=== PATIENT | female | born 1945 | race Caucasian/White ===

== ENCOUNTER 2021-02-23 10:16 | Inpatient (IN) ==
[2021-02-23] MEDS ORDERED: PANTOprazole 80 MG in DEXTROSE 5% 100 ML IV ONE (10:50)
--- NOTE | 2021-02-23 10:57 | Emergency Department Note ---
History of Present Illness General Chief complaint: GI Bleed Stated complaint: Dark Stool Time Seen by Provider: 02/23/21 10:34 History of Present Illness Maximum Pain Intensity: 0 This is a 76-year-old female brought over from [facility] for evaluation of dark and maroon-colored stools. The patient is in [facility] because she had a CHF exacerbation and then subsequently developed difficulty walking. She also has a wound to her right knee. She was previously admitted to [facility]. She has no complaints other than feeling somewhat tired. According to the nurse the patient had dark stools the other day and today they noticed maroon stools and sent her here for evaluation. She is on Eliquis daily for atrial fibrillation. She denies any hematuria or nosebleeds. She states that she has chronic diarrhea from IBS. She denies any chest pain or shortness of breath. She has had no fevers. She did vomit once 2 weeks ago but has not vomited since. She denies any abdominal pain. She denies headache or cough or cold symptoms. She was told in her prior hospitalization that she was anemic. She was recommended to have a colonoscopy but states that she has not had time to arrange it. Home Medications Medication Instructions Recorded Confirmed Type apixaban 5 mg PO BID 02/23/21 02/23/21 History digoxin 250 mcg PO PM 02/23/21 02/23/21 History docusate sodium 100 mg PO TID 02/23/21 02/23/21 History escitalopram oxalate 10 mg PO QAM 02/23/21 02/23/21 History fludrocortisone 0.1 mg PO QAM 02/23/21 02/23/21 History furosemide 40 mg PO BIDM 02/23/21 02/23/21 History iron,carbonyl-vitamin C [Vitron-C] 1 tab PO TIDM 02/23/21 02/23/21 History magnesium oxide 400 mg PO BIDM 02/23/21 02/23/21 History melatonin 3 mg PO HS PRN 02/23/21 02/23/21 History pantoprazole 40 mg PO DAILYBB 02/23/21 02/23/21 History potassium chloride 40 meq PO BIDM 02/23/21 02/23/21 History potassium phosphate m-/d-basic 1 packet PO TIDM 02/23/21 02/23/21 History pravastatin 10 mg PO QAM 02/23/21 02/23/21 History silver sulfadiazine 1 applic TOPICAL BID 02/23/21 02/23/21 History tramadol 50 mg PO Q4H PRN 02/23/21 02/23/21 History Allergies Allergy/AdvReac Type Severity Reaction Status Date / Time Anesthetics - Amide Type - AdvReac Severe Stops Unverified 02/23/21 12:11 Select A Breathings Anesthetics - Constanza Type- AdvReac Severe Stops Unverified 02/23/21 12:11 Parabens Breathing meperidine [From Demerol] AdvReac Mild Vomiting Unverified 02/23/21 12:11 Past Med/Surg History Medical History (Updated 02/23/21 @ 18:08 by Luis F Linder MD) Afib Anemia CHF (congestive heart failure) Dementia Dizziness HLD (hyperlipidemia) HTN (hypertension) Hypokalemia Obesity MOHAMUD (obstructive sleep apnea) Tonsillectomy planned Unspecified reduction defect of unspecified upper limb Surgical History Gastric bypass status for obesity H/O: hysterectomy Family History (Updated 02/23/21 @ 14:35 by NEIDA Loyola) Other Coronary heart disease Cystic kidney disease Diabetes Dyslipidemia Osteoarthritis Social History Smoking Status: Never smoker Hx Alcohol Use: No Hx Substance Use: No Preferred Language: Serbian Communication Ability: Effective Beliefs That Will Affect Care: None Current Living Situation: Family Current Living Situation Comment: sister in law lives with her Other Information That Helps Us Care for You: No Feels Safe at Home: Yes Assistive Devices: Glasses, Special Shoe and Wheelchair Physical Exam Vital Signs Vital Signs - 24 hr 02/23/21 10:21 02/23/21 10:27 02/23/21 11:19 Temperature 36.8 C Temperature Source Oral Pulse Rate 84 84 93 H Pulse Rate from SpO2 Sensor 84 81 Pulse Rhythm Regular Pulse Strength Normal Respiratory Rate 25 H 18 25 H Respiratory Effort / Characteristics Non-Labored Spontaneous Nasal Congestion Respiratory Depth Normal Blood Pressure 114/68 114/68 Blood Pressure Mean 83 83 Blood Pressure Position Lying Pulse Oximetry 93 98 90 Oxygen Delivery Method Room Air Sepsis Recent Fever Within 48 Hours No Sepsis New/Unexplained Change in Mental Status N/A Sepsis Action Taken by Nursing No Action Required 02/23/21 11:20 02/23/21 11:30 02/23/21 11:40 Temperature Temperature Source Pulse Rate 81 85 77 Pulse Rate from SpO2 Sensor 84 79 81 Pulse Rhythm Pulse Strength Respiratory Rate 24 17 Respiratory Effort / Characteristics Respiratory Depth Blood Pressure Blood Pressure Mean Blood Pressure Position Pulse Oximetry 92 92 92 Oxygen Delivery Method Sepsis Recent Fever Within 48 Hours Sepsis New/Unexplained Change in Mental Status Sepsis Action Taken by Nursing 02/23/21 11:50 02/23/21 12:00 02/23/21 12:10 Temperature Temperature Source Pulse Rate 81 84 78 Pulse Rate from SpO2 Sensor 81 87 78 Pulse Rhythm Pulse Strength Respiratory Rate 17 19 22 Respiratory Effort / Characteristics Respiratory Depth Blood Pressure Blood Pressure Mean Blood Pressure Position Pulse Oximetry 94 94 94 Oxygen Delivery Method Sepsis Recent Fever Within 48 Hours Sepsis New/Unexplained Change in Mental Status Sepsis Action Taken by Nursing 02/23/21 12:20 02/23/21 12:26 02/23/21 12:30 Temperature Temperature Source Pulse Rate 91 H 89 86 Pulse Rate from SpO2 Sensor 86 84 Pulse Rhythm Pulse Strength Respiratory Rate 27 H 24 23 Respiratory Effort / Characteristics Respiratory Depth Blood Pressure 127/76 Blood Pressure Mean 93 Blood Pressure Position Pulse Oximetry 93 90 Oxygen Delivery Method Sepsis Recent Fever Within 48 Hours Sepsis New/Unexplained Change in Mental Status Sepsis Action Taken by Nursing 02/23/21 12:40 02/23/21 12:50 02/23/21 13:00 Temperature Temperature Source Pulse Rate 90 79 83 Pulse Rate from SpO2 Sensor Pulse Rhythm Pulse Strength Respiratory Rate 21 23 22 Respiratory Effort / Characteristics Respiratory Depth Blood Pressure Blood Pressure Mean Blood Pressure Position Pulse Oximetry Oxygen Delivery Method Sepsis Recent Fever Within 48 Hours Sepsis New/Unexplained Change in Mental Status Sepsis Action Taken by Nursing 02/23/21 13:10 02/23/21 13:20 02/23/21 13:30 Temperature Temperature Source Pulse Rate 88 86 81 Pulse Rate from SpO2 Sensor Pulse Rhythm Pulse Strength Respiratory Rate 23 18 23 Respiratory Effort / Characteristics Respiratory Depth Blood Pressure Blood Pressure Mean Blood Pressure Position Pulse Oximetry Oxygen Delivery Method Sepsis Recent Fever Within 48 Hours Sepsis New/Unexplained Change in Mental Status Sepsis Action Taken by Nursing 02/23/21 13:40 02/23/21 13:50 02/23/21 14:00 Temperature Temperature Source Pulse Rate 80 81 85 Pulse Rate from SpO2 Sensor Pulse Rhythm Pulse Strength Respiratory Rate 25 H 18 23 Respiratory Effort / Characteristics Respiratory Depth Blood Pressure Blood Pressure Mean Blood Pressure Position Pulse Oximetry Oxygen Delivery Method Sepsis Recent Fever Within 48 Hours Sepsis New/Unexplained Change in Mental Status Sepsis Action Taken by Nursing 02/23/21 14:10 02/23/21 14:20 02/23/21 14:30 Temperature Temperature Source Pulse Rate 76 76 84 Pulse Rate from SpO2 Sensor 76 90 Pulse Rhythm Pulse Strength Respiratory Rate 23 24 16 Respiratory Effort / Characteristics Respiratory Depth Blood Pressure Blood Pressure Mean Blood Pressure Position Pulse Oximetry 90 91 Oxygen Delivery Method Sepsis Recent Fever Within 48 Hours Sepsis New/Unexplained Change in Mental Status Sepsis Action Taken by Nursing 02/23/21 14:40 02/23/21 14:50 Temperature Temperature Source Pulse Rate 74 78 Pulse Rate from SpO2 Sensor 77 79 Pulse Rhythm Pulse Strength Respiratory Rate 22 20 Respiratory Effort / Characteristics Respiratory Depth Blood Pressure Blood Pressure Mean Blood Pressure Position Pulse Oximetry 95 93 Oxygen Delivery Method Sepsis Recent Fever Within 48 Hours Sepsis New/Unexplained Change in Mental Status Sepsis Action Taken by Nursing Constitutional: Vital signs reviewed. Eyes: Pupils are equal round reactive to light. Conjunctiva are noninjected. ENT: Pharynx is clear without erythema or exudate. Mucous membranes are dry. Neck supple without meningeal signs. Respiratory: Clear to auscultation bilaterally. Breath sounds are equal bilaterally. Cardiovascular: Irregularly irregular rhythm. Regular rate. GI: Soft, nondistended and nontender. Bowel sounds are present. Musculoskeletal: 2 wounds to the right ralph without evidence of surrounding cellulitis. No purulent drainage. Integumentary: No cyanosis. or jaundice. Neurological: The patient is awake and alert. No focal deficits. Psychiatric: Normal affect. Not anxious appearing. Course Administered Medications Docusate Sodium (Docusate Sodium 100 Mg Cap) 100 mg PO TID [facility] Stop: 03/25/21 15:57 Last Admin: 02/23/21 17:36 Dose: 100 mg Documented by: [id number] Furosemide (Furosemide 40 Mg Tab) 40 mg PO BIDM [facility] Stop: 03/25/21 16:59 Last Admin: 02/23/21 17:35 Dose: 40 mg Documented by: [id number] Potassium Chloride (Potassium Chloride Crtab 20 Meq Tabcr) 40 meq PO BIDM [facility] Stop: 03/25/21 16:59 Last Admin: 02/23/21 17:35 Dose: 40 meq Documented by: [id number] Potassium Phosphate (Pot Phosphate Monobasic W/ Sod Tab) 1 tab PO TIDM [facility] Stop: 03/25/21 16:59 Last Admin: 02/23/21 17:48 Dose: 1 tab Documented by: [id number] Discontinued Medications Pantoprazole Sodium 80 mg/ (Dextrose) 100 mls @ 400 mls/hr IV NOW ONE Stop: 02/23/21 11:04 Last Infusion: 02/23/21 11:50 Dose: 400 mls/hr Documented by: [id number] Admin: 02/23/21 11:27 Dose: 400 mls/hr Documented by: [id number] Pantoprazole Sodium 40 mg/ (Syringe) 10 mls @ 5 mls/min IV NOW ONE Stop: 02/23/21 13:40 Last Admin: 02/23/21 14:13 Dose: 5 mls/min Documented by: [id number] Medical Decision Making Differential Diagnosis GI bleed, peptic ulcer disease, diverticulosis, AVM, anemia Medical Records Attestation: I reviewed the patient's medical records. I did perform a limited focused review of portions of the patient's old chart on the electronic medical record. The patient has had no recent pertinent visits to this hospital. Home Medications Current Medication List: was personally reviewed by me Laboratory Data Attestation: I reviewed the patient's lab results. Result diagrams: 02/23/21 11:15 02/23/21 11:15 Lab Results 02/23/21 02/23/21 02/23/21 Range/Units 11:15 11:15 11:15 WBC 7.77 (4.8-10.8) K/uL RBC 3.78 L (4.2-5.4) M/uL Hgb 10.9 L (12.0-16.0) g/dL Hct 36.8 L (37-47) % MCV 97.4 (80-100) fL MCH 28.8 (25-34) pg MCHC 29.6 L (32-36) g/dL RDW Std Deviation 67.8 H (36.4-46.3) fL RDW Coeff of Bea 19.1 H (11.5-14.5) % Plt Count 366 (130-400) K/uL MPV 9.3 (7.4-10.4) fL Immature Gran % (Auto) 1.3 % Neut % (Auto) 66.9 % Lymph % (Auto) 10.0 % [place] % (Auto) 16.5 % Eos % (Auto) 5.0 % Baso % (Auto) 0.3 % Neut # (Auto) 5.20 (1.4-6.5) K/uL Lymph # (Auto) 0.78 L (1.2-3.4) K/uL [place] # (Auto) 1.28 H (0.11-0.59) K/uL Eos # (Auto) 0.39 (0-0.5) K/uL Baso # (Auto) 0.02 (0-0.2) K/uL Immature Gran # (Auto) 0.10 H (0.00-0.02) K/uL PT 12.6 H (9.0-12.0) Seconds INR 1.3 H (0.9-1.1) APTT 34.7 H (21.0-31.0) Seconds PTT Ratio 1.3 Sodium (136-145) mmol/L Potassium (3.5-5.1) mmol/L Chloride (98-107) mmol/L Carbon Dioxide (21-32) mmol/L Anion Gap (3-11) BUN (7-18) mg/dl Creatinine (0.6-1.2) mg/dl Est Cr Clr Drug Dosing ml/min Est GFR ( Amer) ml/min Est GFR (Non-Af Amer) ml/min BUN/Creatinine Ratio (10-20) Glucose (70-99) mg/dl Calcium (8.5-10.1) mg/dl Total Bilirubin (0.2-1) mg/dl AST (15-37) U/L ALT (12-78) U/L Alkaline Phosphatase (45-117) U/L Troponin I (0-0.045) ng/ml Total Protein (6.4-8.2) gm/dl Albumin (3.4-5.0) gm/dl Globulin (2.5-4.0) gm/dl Albumin/Globulin Ratio (0.9-2) COVID-19 Eval Order SARS-CoV-2 (PCR) (Negative) Blood Type O Positive Antibody Screen NEGATIVE 02/23/21 02/23/21 02/23/21 Range/Units 11:15 11:36 11:36 WBC (4.8-10.8) K/uL RBC (4.2-5.4) M/uL Hgb (12.0-16.0) g/dL Hct (37-47) % MCV (80-100) fL MCH (25-34) pg MCHC (32-36) g/dL RDW Std Deviation (36.4-46.3) fL RDW Coeff of Bea (11.5-14.5) % Plt Count (130-400) K/uL MPV (7.4-10.4) fL Immature Gran % (Auto) % Neut % (Auto) % Lymph % (Auto) % [place] % (Auto) % Eos % (Auto) % Baso % (Auto) % Neut # (Auto) (1.4-6.5) K/uL Lymph # (Auto) (1.2-3.4) K/uL [place] # (Auto) (0.11-0.59) K/uL Eos # (Auto) (0-0.5) K/uL Baso # (Auto) (0-0.2) K/uL Immature Gran # (Auto) (0.00-0.02) K/uL PT (9.0-12.0) Seconds INR (0.9-1.1) APTT (21.0-31.0) Seconds PTT Ratio Sodium 137 (136-145) mmol/L Potassium 4.1 (3.5-5.1) mmol/L Chloride 98 (98-107) mmol/L Carbon Dioxide 33 H (21-32) mmol/L Anion Gap 7.0 (3-11) BUN 23 H (7-18) mg/dl Creatinine 1.07 (0.6-1.2) mg/dl Est Cr Clr Drug Dosing 52.9 ml/min Est GFR ( Amer) 58.8 ml/min Est GFR (Non-Af Amer) 50.7 ml/min BUN/Creatinine Ratio 21.6 H (10-20) Glucose 73 (70-99) mg/dl Calcium 8.9 (8.5-10.1) mg/dl Total Bilirubin 1.3 H (0.2-1) mg/dl AST 20 (15-37) U/L ALT 13 (12-78) U/L Alkaline Phosphatase 96 (45-117) U/L Troponin I 0.023 (0-0.045) ng/ml Total Protein 6.2 L (6.4-8.2) gm/dl Albumin 3.3 L (3.4-5.0) gm/dl Globulin 2.9 (2.5-4.0) gm/dl Albumin/Globulin Ratio 1.2 (0.9-2) COVID-19 Eval Order Covid19 at [facility] SARS-CoV-2 (PCR) NEGATIVE (Negative) Blood Type Antibody Screen ECG Data Attestation: I personally reviewed and interpreted this ECG as follows: Indication: + other (GI bleed) Rate (beats per minute): 86 Rhythm: + atrial fibrillation ECG ST segments: + T-wave inversions ECG Findings: + Other (Motion artifact); no PVCs MDM Narrative I did evaluate the patient as noted above. The patient was sent here from [facility] for evaluation of GI bleeding. The patient is on Eliquis for chronic A. fib. She was noted to have dark schools yesterday and maroon-colored stools today. IV access was established. I did place an order for continuous cardiac monitoring. The monitor showed atrial fibrillation at a rate of 88 bpm. I did order and personally review the patient's 12-lead EKG as described above. She has A. fib with some T wave inversions. No old EKGs available for comparison. I did order a type and screen. I did order and review the patient's blood work as noted in the electronic medical record. Her white count is 7.7. Hemoglobin is 10.9. Platelet count is 366. Electrolytes are unre markable other than a CO2 of 33. INR slightly elevated 1.3 although the patient is not on Coumadin. Troponin is negative. The nurse obtained a stool sample from the patient which she reported as very dark and guaiac positive. I did start the patient on Protonix IV. I did recommend hospitalization. I did discuss the case with the hospitalist and counter caser. COVID-19 testing is negative. Impression & Plan Acute GI bleeding, CHF (congestive heart failure), Anemia Discharge Plan Visit Data Chief Complaint: GI Bleed Stated Complaint: Dark Stool ED Provider: Luis F Linder Discharge Problem: Acute GI bleeding, CHF (congestive heart failure), Anemia Patient Disposition: Admitted As Inpatient Discharge Instructions Interventions: ED Discharge Assessment Last Done: 02/23/21 15:31
[2021-02-23 11:50] LABS: Basophils # (auto) 0.02 K/uL (0-0.2); Basophils % (auto) 0.3 %; Eosinophils # (auto) 0.39 K/uL (0-0.5); Hematocrit (blood only) 36.8 % (37-47); Hemoglobin 10.9 g/dL (12.0-16.0); Immature Granulocytes % (auto) 1.3 %; Lymphocytes # (auto) 0.78 K/uL (1.2-3.4); Mean Corpuscular Hemoglobin 28.8 pg (25-34); Mean Corpuscular Hgb Conc 29.6 g/dL (32-36); Mean Corpuscular Volume 97.4 fL (80-100); Mean Platelet Volume 9.3 fL (7.4-10.4); Monocytes # (auto) 1.28 K/uL (0.11-0.59); Monocytes % (auto) 16.5 %; Neutrophils % (auto) 66.9 %; Platelet Count 366 K/uL (130-400); RDW Coefficient of Variation 19.1 % (11.5-14.5); RDW Standard Deviation 67.8 fL (36.4-46.3); Red Blood Count 3.78 M/uL (4.2-5.4); White Blood Count 7.77 K/uL (4.8-10.8)
[2021-02-23 12:04] LABS: INR 1.3 (0.9-1.1); Partial Thromboplastin Ratio 1.3; Partial Thromboplastin Time 34.7 Seconds (21.0-31.0); Prothrombin Time 12.6 Seconds (9.0-12.0)
[2021-02-23 12:14] LABS: Albumin Level 3.3 gm/dl (3.4-5.0); BUN Creatinine Ratio 21.6 (10-20); Calcium 8.9 mg/dl (8.5-10.1); Creatinine Clr Calc Pharmacy 52.9 ml/min; Est GFR (African American) 58.8 ml/min; Est GFR (Non-African American) 50.7 ml/min; Potassium 4.1 mmol/L (3.5-5.1)
[2021-02-23 12:19] LABS: Albumin Globulin Ratio 1.2 (0.9-2); Bilirubin,Total 1.3 mg/dl (0.2-1); Globulin 2.9 gm/dl (2.5-4.0); Total Protein 6.2 gm/dl (6.4-8.2); Troponin I 0.023 ng/ml (0-0.045)
[2021-02-23] MEDS ORDERED: PANTOprazole 40 MG in SYRINGE 0 ML IV ONE (13:39)
--- NOTE | 2021-02-23 14:16 | History & Physical Report ---
Date of Service February 23, 2021 Assessment & Plan (1) Gastrointestinal hemorrhage, unspecified: As per HPI- risk factors; gastric bypass, poor PO intake, on chronic anticoagulation- unspecified source - dark stools reported, with guaiac (+) stool in EMD - Protonix 40 mg IV BID - Consult GI- appreciated - NO elevation in BUN, hemodynamically stable, HGB/HCT stable - [place]- 6 (2) Anemia: Patient with multiple causes for her anemia - Reportedly following her transfusion at [facility] - she was discharged ~9-10---> 10.9 now - She believes was recently started on her Iron supplementation - MCV 97, MCH 28 - Iron studies, b12 and Folate- pending (3) Afib: Rate controlled - Continue digoxin - Follow her K with digoxin-- dig level pending - HOLD Eliquis until her clinical picture is more clear and/or GI Bleed is ruled in/out. - Follow K, Mg as above (4) CHF (congestive heart failure): HFpEF- Patient reports that her EF 50% - As long as remains hemodynamic stable with no acute blood loss cotninue diuretics - Lasix 40 PO BID - Digoxin 0.25mg PO BID (5) HTN (hypertension): As above - Follow with her ? blood loss (6) HLD (hyperlipidemia): Continue pravastatin 10 mg PO Qam (7) Hypokalemia: Chronic- she is on Kdur as well as Kphos packets - She feels this is also why she was just put on Fludrocortisone 01.mg - Cortisol pending - Urine lytes pending - No gap- HCO3 33 (8) Obesity: Chronic obesity - No acute needs (9) Gastric bypass status for obesity: As above - Follow labs- supplements and complexes may need added/adjusted (10) MOHAMUD (obstructive sleep apnea): She wears CPAP at night but is unaware of settings - we have no records available - Her daughter will bring in her machine - CPAP at night or while sleeping (11) Dementia: Baseline (12) Dizziness: This has been going on for 3 months per the daughter, where they adjusted her medications - Follow up when ensured Euvolemia- to mild hypovolemia - As above History of Present Illness Primary Care Provider: [facility] 76 YOF with past medical history of: Afib (on eliquis), hypotension, hypokalemia, obesity, HTN, HFpef, HLD, MOHAMUD (on CPAP) arthritis, falls, depression, dementia, Gastric bypass 2001. Patient is poor historian but daughter is at bedside to help fill in some of the information. Patient was told that she has been anemic since ~December and was scheduled to have an appointment with GI, however this appointment was never scheduled because she was admitted to [facility] at the end of November for CHF exacerbation. Her daughter reports that while she was at [facility], her HGB ~8 and she was given 2 units of blood and also believes that she was started on the iron- vitamin C there. The patient was discharged from [facility] on 21Sep2020 and sent back to [facility]. She was referred back to the EMD today for reports of large dark bloody BM there, the patient can not recall her BM as she is usually on a bedpan or incontinence pads, but she denies any increase in her BM or them changing consistency, she has also not had any vomiting. She was evaluated in the EMD and had a guaiac (+) stool per the EMD physician. Patient reports some increase in her nausea at times, but does not endorse stomach pain or increase in heart burn. She denies any Motrin, Aleve, Ibuprofen, or other NSAID use, and used Tylenol for her pain and took her Tramadol one day as it was just started for her Arthritis. Patient will be admitted to medical telemetry, will hold her Eliqius, start on IV PPI BID, follow her blood counts and consult GI. Allergies Allergy/AdvReac Type Severity Reaction Status Date / Time Anesthetics - Amide Type - AdvReac Severe Stops Unverified 02/23/21 12:11 Select A Breathings Anesthetics - Constanza Type- AdvReac Severe Stops Unverified 02/23/21 12:11 Parabens Breathing meperidine [From Demerol] AdvReac Mild Vomiting Unverified 02/23/21 12:11 Home Medications Medication Instructions Recorded Confirmed Type apixaban 5 mg PO BID 02/23/21 02/23/21 History digoxin 250 mcg PO PM 02/23/21 02/23/21 History docusate sodium 100 mg PO TID 02/23/21 02/23/21 History escitalopram oxalate 10 mg PO QAM 02/23/21 02/23/21 History fludrocortisone 0.1 mg PO QAM 02/23/21 02/23/21 History furosemide 40 mg PO BIDM 02/23/21 02/23/21 History iron,carbonyl-vitamin C [Vitron-C] 1 tab PO TIDM 02/23/21 02/23/21 History magnesium oxide 400 mg PO BIDM 02/23/21 02/23/21 History melatonin 3 mg PO HS PRN 02/23/21 02/23/21 History pantoprazole 40 mg PO DAILYBB 02/23/21 02/23/21 History potassium chloride 40 meq PO BIDM 02/23/21 02/23/21 History potassium phosphate m-/d-basic 1 packet PO TIDM 02/23/21 02/23/21 History pravastatin 10 mg PO QAM 02/23/21 02/23/21 History silver sulfadiazine 1 applic TOPICAL BID 02/23/21 02/23/21 History tramadol 50 mg PO Q4H PRN 02/23/21 02/23/21 History Past Med/Surg History Medical History (Updated 02/23/21 @ 15:18 by NEIDA Loyola) Afib Anemia CHF (congestive heart failure) Dementia Dizziness HLD (hyperlipidemia) HTN (hypertension) Hypokalemia Obesity MOHAMUD (obstructive sleep apnea) Tonsillectomy planned Unspecified reduction defect of unspecified upper limb Surgical History Gastric bypass status for obesity H/O: hysterectomy Family History (Updated 02/23/21 @ 14:35 by NEIDA Loyola) Other Coronary heart disease Cystic kidney disease Diabetes Dyslipidemia Osteoarthritis Social History Smoking Status: Never smoker Hx Alcohol Use: No Hx Substance Use: No Preferred Language: Faroese Communication Ability: Effective Beliefs That Will Affect Care: None Current Living Situation: Family Current Living Situation Comment: sister in law lives with her Other Information That Helps Us Care for You: No Feels Safe at Home: Yes Assistive Devices: Glasses, Special Shoe and Wheelchair Review of Systems Review of Systems: REVIEW OF SYSTEMS: Poor historian Constitutional: (+) fatigue, No fever, sweats or chills Eyes: No diplopia, no worsening or blurred vision ENT: normal hearing, no trouble swallowing Respiratory: (+) dyspnea on exertion No cough, sputum, dyspnea at rest or on exertion Cardiovascular: No chest pain, tightness or palpitations Abdomen: (+) nausea, No pain, vomiting, diarrhea or constipation Musculoskeletal: No joint pain, calf pain, swelling Neurologic: (+) dizziness, No weakness, numbness/tingling, or balance problems Psychiatric: (+) anxiety Skin: (+) ulceration left second toe and right inner thigh x2 Physical Exam Physical Exam: PHYSICAL EXAM: General: awake, alert, no apparent distress, poor memory Head: Normocephalic, atraumatic ENT: PERRL, EOMI, no pharyngeal exudate, mucous membranes dry Neuro: AAO x 3, speech clear and appropriate, strength intact bilaterally 5/5, sensation intact and equal all extremities and dermatomes, no pronator drift Chest: equal rise and fall of the chest, no accessory muscle use, no heaves or thrills, Clear to auscultation, on room air, Cardiac: irregular rate and rhythm, telemetry reviewed- afib controlled, skin warm dry, cap refill <3 seconds, peripheral pulses +2 no JVD, no murmur, (+) 2-3 edema bilateral lower extremities GI: NABS x 4 quadrants, soft, nontender to palpation, no rebound, guarding or tenderness : Spontaneously voiding, no pain, no CVA tenderness, Extremities: No, calfs nontender to palpation, from her previous fall she has ulceration to her left second toe, also has some excoriations covered to right lower inner thigh around knee, covered with duodenum, no erythema or pain. Psych: Normal mood and affect Results & Data Results & Data ([facility]) Vital Signs (Past 12 Hours) Vital Signs Temp Pulse Resp BP Pulse Ox 02/23/21 12:40 90 21 02/23/21 12:30 86 23 90 02/23/21 12:26 89 24 127/76 93 02/23/21 12:20 91 H 27 H 02/23/21 12:10 78 22 94 02/23/21 12:00 84 19 94 02/23/21 11:50 81 17 94 02/23/21 11:40 77 17 92 02/23/21 11:30 85 92 02/23/21 11:20 81 24 92 02/23/21 11:19 93 H 25 H 90 02/23/21 10:27 36.8 C 84 18 114/68 98 02/23/21 10:21 84 25 H 114/68 93 Laboratory Results Abnormal lab results 02/23/21 02/23/21 02/23/21 Range/Units 11:15 11:15 11:15 RBC 3.78 L (4.2-5.4) M/uL Hgb 10.9 L (12.0-16.0) g/dL Hct 36.8 L (37-47) % MCHC 29.6 L (32-36) g/dL RDW Std Deviation 67.8 H (36.4-46.3) fL RDW Coeff of Bea 19.1 H (11.5-14.5) % Lymph # (Auto) 0.78 L (1.2-3.4) K/uL Bowie # (Auto) 1.28 H (0.11-0.59) K/uL Immature Gran # (Auto) 0.10 H (0.00-0.02) K/uL PT 12.6 H (9.0-12.0) Seconds INR 1.3 H (0.9-1.1) APTT 34.7 H (21.0-31.0) Seconds Carbon Dioxide 33 H (21-32) mmol/L BUN 23 H (7-18) mg/dl BUN/Creatinine Ratio 21.6 H (10-20) Total Bilirubin 1.3 H (0.2-1) mg/dl Total Protein 6.2 L (6.4-8.2) gm/dl Albumin 3.3 L (3.4-5.0) gm/dl POC Stool Occult Blood (Negative) 02/23/21 Range/Units Unknown RBC (4.2-5.4) M/uL Hgb (12.0-16.0) g/dL Hct (37-47) % MCHC (32-36) g/dL RDW Std Deviation (36.4-46.3) fL RDW Coeff of Bea (11.5-14.5) % Lymph # (Auto) (1.2-3.4) K/uL Bowie # (Auto) (0.11-0.59) K/uL Immature Gran # (Auto) (0.00-0.02) K/uL PT (9.0-12.0) Seconds INR (0.9-1.1) APTT (21.0-31.0) Seconds Carbon Dioxide (21-32) mmol/L BUN (7-18) mg/dl BUN/Creatinine Ratio (10-20) Total Bilirubin (0.2-1) mg/dl Total Protein (6.4-8.2) gm/dl Albumin (3.4-5.0) gm/dl POC Stool Occult Blood Positive A (Negative) Diagnostic Findings NONE Performed Medications Administered Discontinued Medications Pantoprazole Sodium 80 mg/ (Dextrose) 100 mls @ 400 mls/hr IV NOW ONE Stop: 02/23/21 11:04 Last Infusion: 02/23/21 11:50 Dose: 400 mls/hr Documented by: [id number] Admin: 02/23/21 11:27 Dose: 400 mls/hr Documented by: [id number] Pantoprazole Sodium 40 mg/ (Syringe) 10 mls @ 5 mls/min IV NOW ONE Stop: 02/23/21 13:40 Last Admin: 02/23/21 14:13 Dose: 5 mls/min Documented by: [id number] ECG Additional Comments: Atrial fibrillation ST & T wave abnormality, consider inferior ischemia ST & T wave abnormality, consider anterolateral ischemia Abnormal ECG No previous ECGs available Code Status & VTE Plan Code Status CODE: FULL VTE: SCD's, Heparin sub q 5000 VTE Prophylaxis Plan VTE Prophylaxis will be ordered: Yes Supervising Physician Co-Signing Physician Notes NATIONAL ACCOUNT EXECUTIVE Supervision note: I have personally seen and examined the patient and discussed and verified the navarrete points of the history and physical along with the plan with NEIDA Heard with the following exceptions and/or additions: Pt here w/ bloody dark stool that is Heme + from rehab. hgb higher than it was reportedly on prior admission as per daughter but had received 2 units PRBCs about one month ago. SHe has a h/o gastric bypass as well as she reports having an upper GI bleed about 10 years ago. Has some nausea and low appetite History and ROS reviewed as above Vitals reviewed Obese, alert, awake, oriented to hospital but gets confused at times, forgetful anicteric sclerae irreg irreg, no mgr CTAB no wcr abd massively obese, +bs soft NT ND Ext race edema SKin bruise on left knee, wound covered right knee Labs ans ECG reviewed 76 yo obese female with Afib on Eliquis, HTN, hypokalemia, depression, MCI,gastric bypass, here with GI bleed and mild anemia Hemodynamically stable follow CBC, may need EGD, will make NPO after midnight in case of EGD for tomorrow given gastric bypass abnormal ECG and none to compare to, trop detectable-follow serial ECG and trop hold ELiquis rate controlled PG Care Time/CCT Total # of Minutes Spent Total Time Spent with Patient: Total time spent is greater than 50% in coordination of care (as documented) at patient's floor/unit and/or counseling patient: Coding Level of Care Code 65374 Initial Inpt Care Lvl 3 Diagnoses Gastrointestinal hemorrhage, unspecified K92.2 Gastritis type: unspecified gastritis Anemia D64.9 Anemia type: unspecified type Afib I48.20 Atrial fibrillation type: unspecified chronic CHF (congestive heart failure) I50.30 Heart failure chronicity: unspecified Heart failure type: diastolic HTN (hypertension) I10 Hypertension type: essential hypertension HLD (hyperlipidemia) E78.5 Hyperlipidemia type: unspecified Hypokalemia E87.6 Obesity E66.01; Z68.43 Body mass index: BMI 50.0-59.9 Obesity classification: adult class 3 (BMI >= 40) Obesity type: due to excess calories Serious obesity comorbidity presence: with serious comorbidity Gastric bypass status for obesity Z98.84 MOHAMUD (obstructive sleep apnea) G47.33 Dementia F03.90 Dementia behavioral disturbance: without behavioral disturbance Dementia type: unspecified type Dizziness R42 (1) Gastrointestinal hemorrhage, unspecified Gastritis type: unspecified gastritis (2) CHF (congestive heart failure) Heart failure chronicity: unspecified Heart failure type: diastolic Qualified Code(s): I50.30 - Unspecified diastolic (congestive) heart failure (3) Anemia Anemia type: unspecified type Qualified Code(s): D64.9 - Anemia, unspecified (4) Afib Atrial fibrillation type: unspecified chronic Qualified Code(s): I48.20 - Chronic atrial fibrillation, unspecified (5) Dementia Dementia behavioral disturbance: without behavioral disturbance Dementia type: unspecified type Qualified Code(s): F03.90 - Unspecified dementia without behavioral disturbance (6) HLD (hyperlipidemia) Hyperlipidemia type: unspecified Qualified Code(s): E78.5 - Hyperlipidemia, unspecified (7) HTN (hypertension) Hypertension type: essential hypertension Qualified Code(s): I10 - Essential (primary) hypertension (8) Obesity Body mass index: BMI 50.0-59.9 Obesity classification: adult class 3 (BMI >= 40) Obesity type: due to excess calories Serious obesity comorbidity presence: with serious comorbidity Qualified Code(s): E66.01 - Morbid (severe) obesity due to excess calories; Z68.43 - Body mass index [BMI] 50.0-59.9, adult
[2021-02-23] MEDS ORDERED: ONDANSETRON INJ 2 MG/ML 2 ML VIAL IV PRN (15:58)
[2021-02-23] MEDS ORDERED: MELATONIN 3 MG TAB PO PRN (15:58)
[2021-02-23] MEDS ORDERED: POLYETHYLENE (MIRALAX) 17 GM PACK PO PRN (15:58)
[2021-02-23] MEDS ORDERED: ZINC OXIDE 16% 45 APPLN, HYDROCORTISONE 1% 45 APPLN, ALUMINUM/MAGNESIUM SUSP 15 ML, BAR... TOP PRN (15:58)
[2021-02-23] MEDS ORDERED: NON-FORMULARY MEDICATION (Iron,Carbonyl-Vitamin C [Vitron-C] 65 mg iron- 125 mg Tablet,Del PO SCH (17:00)
[2021-02-23] MEDS: FUROSEMIDE 40 MG TAB PO SCH (17:35)
[2021-02-23] MEDS: POTASSIUM CHLORIDE CRTAB 20 MEQ TABCR PO SCH (17:35)
[2021-02-23] MEDS: DOCUSATE SODIUM 100 MG CAP PO SCH ×2 (17:36→20:21)
[2021-02-23] MEDS: POT PHOSPHATE MONOBASIC W/ SOD TAB PO SCH (17:48)
[2021-02-23] MEDS: PANTOprazole 40 MG in SYRINGE 0 ML IV SCH (20:21)
[2021-02-23] MEDS: SILVER SULFADIAZINE 1% CR 50 GM JAR EXT SCH (20:22)
[2021-02-23] MEDS: HEPARIN SOD 5,000 UNIT/0.5 ML VIAL SQ SCH (20:24)
[2021-02-23] MEDS ORDERED: DIGOXIN 0.25 MG TAB PO SCH (21:00)
[2021-02-24 06:06] LABS: Basophils # (auto) 0.04 K/uL (0-0.2); Basophils % (auto) 0.6 %; Eosinophils # (auto) 0.36 K/uL (0-0.5); Eosinophils % (auto) 5.1 %; Hematocrit (blood only) 35.1 % (37-47); Hemoglobin 10.4 g/dL (12.0-16.0); Immature Granulocytes # (auto) 0.11 K/uL (0.00-0.02); Immature Granulocytes % (auto) 1.6 %; Lymphocytes # (auto) 0.73 K/uL (1.2-3.4); Lymphocytes % (auto) 10.3 %; Mean Corpuscular Hemoglobin 28.7 pg (25-34); Mean Corpuscular Hgb Conc 29.6 g/dL (32-36); Mean Corpuscular Volume 96.7 fL (80-100); Mean Platelet Volume 9.1 fL (7.4-10.4); Monocytes # (auto) 1.27 K/uL (0.11-0.59); Monocytes % (auto) 17.9 %; Neutrophils # (auto) 4.58 K/uL (1.4-6.5); Neutrophils % (auto) 64.5 %; Platelet Count 381 K/uL (130-400); RDW Coefficient of Variation 18.9 % (11.5-14.5); RDW Standard Deviation 67.3 fL (36.4-46.3); Red Blood Count 3.63 M/uL (4.2-5.4); White Blood Count 7.09 K/uL (4.8-10.8)
[2021-02-24] MEDS: HEPARIN SOD 5,000 UNIT/0.5 ML VIAL SQ SCH ×2 (06:17→14:53)
[2021-02-24 06:38] LABS: BUN Creatinine Ratio 18.6 (10-20); Calcium 8.9 mg/dl (8.5-10.1); Creatinine Clr Calc Pharmacy 51.8 ml/min; Est GFR (African American) 58.8 ml/min; Est GFR (Non-African American) 50.7 ml/min; Magnesium 1.9 mg/dl (1.8-2.4); Potassium 4.1 mmol/L (3.5-5.1)
[2021-02-24 06:49] LABS: Folate (Folic Acid) > 20.00 ng/ml (>5.38); Vitamin B12 1981 pg/ml (193-986)
[2021-02-24 06:50] LABS: Ferritin 127.6 ng/ml (8-388); Thyroid Stimulating Hormone 2.81 uIu/ml (0.300-4.500)
--- NOTE | 2021-02-24 08:25 | Electrocardiogram Report ---
Test Reason : Blood Pressure : / mmHG Vent. Rate : 086 BPM Atrial Rate : 086 BPM P-R Int : 000 ms QRS Dur : 104 ms QT Int : 364 ms P-R-T Axes : 000 000 192 degrees QTc Int : 435 ms Poor data quality, interpretation may be adversely affected Atrial fibrillation T-wave inversion in Anterior leads , consider ischemia T-wave inversion in Lateral leads , consider ischemia Abnormal ECG No previous ECGs available Confirmed by Jarred Timmons ([id number]) on 02/24/2021 8:25:13 AM Referred By: [facility] Confirmed By:Jarred Timmons
[2021-02-24] MEDS: FUROSEMIDE 40 MG TAB PO SCH ×2 (08:50→16:49)
[2021-02-24] MEDS: POT PHOSPHATE MONOBASIC W/ SOD TAB PO SCH ×3 (08:50→16:49)
[2021-02-24] MEDS: DOCUSATE SODIUM 100 MG CAP PO SCH ×2 (08:50→12:31)
[2021-02-24] MEDS: POTASSIUM CHLORIDE CRTAB 20 MEQ TABCR PO SCH ×2 (08:50→16:49)
[2021-02-24] MEDS: ESCITALOPRAM OXALATE 10 MG TAB PO SCH (08:50)
[2021-02-24] MEDS: PANTOprazole 40 MG in SYRINGE 0 ML IV SCH ×2 (08:50→20:12)
[2021-02-24] MEDS: SILVER SULFADIAZINE 1% CR 50 GM JAR EXT SCH ×2 (08:51→20:00)
[2021-02-24] MEDS: PRAVASTATIN SOD 10 MG TAB PO SCH (08:51)
--- NOTE | 2021-02-24 10:19 | Gastrointestinal Consultation ---
Date of Consultation February 24, 2021 Assessment & Plan (1) Anemia: (2) Gastrointestinal hemorrhage, unspecified: (3) Gastric bypass status for obesity: diverticular bleeding vs. PUD or AVM given hx CHF. Recs: protonix 40 mg IV BID clear liquid diet today, NPO post midnight except for prep golytely prep starting at 6 pm EGD and colonoscopy tomorrow to further evaluate supportive care, trend H/H, transfuse prn hgb<7 Thank you for allowing me to participate in the care of this patient History of Present Illness Attending Physician: Doris Coats MD 76 yo female with hx afib on eliquis, hypokalemia, hypotension, obestiy, CHF, MOHAMUD on CPAP, dementia, gastric bypass in 2001 here with anemia. Hgb was around 8 in november 2020 and she was tranfused at that time at [facility]. She presented yesterday with dark bloody bm and stool guaiac is positive. Noted some nausea, hgb noted to be 10.9, now 10.4, does not appear to have had any recent endoscopic workup. labs reviewed, BUN elevated, VSS. Allergies Allergy/AdvReac Type Severity Reaction Status Date / Time Anesthetics - Amide Type - AdvReac Severe Stops Unverified 02/23/21 12:11 Select A Breathings Anesthetics - Constanza Type- AdvReac Severe Stops Unverified 02/23/21 12:11 Parabens Breathing meperidine [From Demerol] AdvReac Mild Vomiting Unverified 02/23/21 12:11 Home Medications Medication Instructions Recorded Confirmed Type apixaban 5 mg PO BID 02/23/21 02/23/21 History digoxin 250 mcg PO PM 02/23/21 02/23/21 History docusate sodium 100 mg PO TID 02/23/21 02/23/21 History escitalopram oxalate 10 mg PO QAM 02/23/21 02/23/21 History fludrocortisone 0.1 mg PO QAM 02/23/21 02/23/21 History furosemide 40 mg PO BIDM 02/23/21 02/23/21 History iron,carbonyl-vitamin C [Vitron-C] 1 tab PO TIDM 02/23/21 02/23/21 History magnesium oxide 400 mg PO BIDM 02/23/21 02/23/21 History melatonin 3 mg PO HS PRN 02/23/21 02/23/21 History pantoprazole 40 mg PO DAILYBB 02/23/21 02/23/21 History potassium chloride 40 meq PO BIDM 02/23/21 02/23/21 History potassium phosphate m-/d-basic 1 packet PO TIDM 02/23/21 02/23/21 History pravastatin 10 mg PO QAM 02/23/21 02/23/21 History silver sulfadiazine 1 applic TOPICAL BID 02/23/21 02/23/21 History tramadol 50 mg PO Q4H PRN 02/23/21 02/23/21 History Patient History Medical History Afib Anemia CHF (congestive heart failure) Dementia Dizziness HLD (hyperlipidemia) HTN (hypertension) Hypokalemia Obesity MOHAMUD (obstructive sleep apnea) Tonsillectomy planned Unspecified reduction defect of unspecified upper limb Surgical History Gastric bypass status for obesity H/O: hysterectomy Family History Other Coronary heart disease Cystic kidney disease Diabetes Dyslipidemia Osteoarthritis Social History Smoking Status: Never smoker Hx Alcohol Use: No Hx Substance Use: No Preferred Language: [place] Communication Ability: Effective Beliefs That Will Affect Care: None Current Living Situation: Family Current Living Situation Comment: sister in law lives with her Other Information That Helps Us Care for You: No Feels Safe at Home: Yes Assistive Devices: Glasses Review of Systems Constitutional: no fever, no chills and no weight loss Eyes: as per Subjective / HPI Ear, Nose, Mouth, Throat: as per Subjective / HPI Respiratory: no dyspnea and no dyspnea on exertion Cardiovascular: no chest pain and no palpitations Gastrointestinal: as per Subjective / HPI Musculoskeletal: no joint pain and no swelling Integumentary: no rash and no lesions Neurologic: no numbness and no paresthesia Psychiatric: no depression and no anxiety Endocrine: no fatigue Hematologic / Lymphatic: no easy bleeding and no easy bruising Physical Exam Constitutional: WD/WN, vitals as above Eyes: EOM intact bilaterally Neck: normal visual inspection Respiratory: normal respiratory effort, lungs clear to auscultation Cardiovascular: RRR, no murmur, no edema Gastrointestinal (Abdomen): Inspection/Auscultation: abdomen normal to inspection; abdomen not distended Percussion/Palpation: abdomen soft; abdomen nontender and no hepatosplenomegaly Musculoskeletal: Extremities: no cyanosis Gait: normal gait Skin: no rashes, warm and dry Neurologic: moves all extremities Psychiatric: Orientation: + not oriented x 3 Apperance: appropriately dressed Eye Contact: good eye contact Speech: normal rate/rhythm/volume of speech Affect: euthymic affect Results & Data ([facility]) Vital Signs (Past 12 Hours) Vital Signs Temp Pulse Pulse Resp BP Pulse Ox 02/24/21 07:26 37.2 C 89 18 125/74 91 02/24/21 03:31 37 C 88 20 116/65 92 02/24/21 00:12 91 H 02/23/21 23:00 36.7 C 97 H 18 120/70 91 PG Care Time/CCT Total # of Minutes Spent Total Time Spent with Patient: Total time spent is greater than 50% in coordination of care (as documented) at patient's floor/unit and/or counseling patient: Coding Level of Care Code 63086 Initial Inpt Care Lvl 3 Diagnoses Anemia D64.9 Anemia type: unspecified type Gastrointestinal hemorrhage, unspecified K92.2 Gastritis type: unspecified gastritis Gastric bypass status for obesity Z98.84 (1) Gastrointestinal hemorrhage, unspecified Gastritis type: unspecified gastritis (2) Anemia Anemia type: unspecified type Qualified Code(s): D64.9 - Anemia, unspecified
[2021-02-24] MEDS: MICONAZOLE NITRATE POWDER 43 GM EXT PRN ×2 (10:23→19:59)
--- NOTE | 2021-02-24 17:26 | Hospitalist Progress Note ---
Date of Service February 24, 2021 Assessment & Plan (1) Gastrointestinal hemorrhage, unspecified: This patient is a 76 yo obese female with Afib on Eliquis, HTN, hypokalemia, depression, MCI,gastric bypass, here with GI bleed and mild anemia Hemodynamically stable Hemoglobin 10.9 on admission and down to 10.5 today Had one episode of black loose stool overnight here and apparently was having black stools at the rehab. She has a history of gastric bypass and a history of a bleeding ulcer in the stomach approximately 10 years ago She is on apixaban which has been held She is Hemoccult positive here Apparently she was transfused 2 units of blood 2 weeks ago and [facility] during her stay for CHF and new onset atrial fibrillation She is hemodynamically stable here -Appreciate GI consultation-plan for EGD and colonoscopy on Thursday -Continue Protonix 40 mg IV BID -Follow CBC in the morning -Continue holding Eliquis (2) Anemia: As above, patient was transfused 2 units of PRBCs during previous admission at outside hospital for hemoglobin of 8-9 Hemoglobin here as above is at 10.5 with melena She was started on oral iron supplementation upon discharge to rehab MCV is borderline macrocytic She does have a history of gastric bypass surgery Iron studies normal here, B12 and folate are also normal TSH normal Likely secondary to GI bleeding Follow CBC Continue iron supplementation upon discharge (3) Afib: Rate controlled. This was new in onset during recent hospitalization at [facility] She follows with Dr. Knight of cardiology at [facility] [place] Her rates here are fairly well controlled in the 80s to 100s Her daughter reports that she had low blood pressures on metoprolol and this was discontinued -She is on digoxin 250 mcg p.o. once daily was just started on this about 1 week ago Digoxin level here is elevated - Continue digoxin elevated at 3.1-no evidence of digoxin toxicity clinically, potassium level is normal -Holding Eliquis as above for GI bleed -Hold digoxin -Repeat digoxin level in the morning Continue to monitor on telemetry -Echocardiogram I believe was performed at the outside hospital, but I do not have a copy of it here (4) CHF (congestive heart failure): HFpEF- Patient reports that her EF 50%, but I do not have a copy of the echocardiogram report here Mild volume overload with edema in the ankles and feet I do not have record of her weight upon discharge from recent hospitalization, however her daughter reports she was 136 kg before she went into the [facility] 2 weeks ago -Continue Lasix 40 MG PO BID -Daily weights, I's and O's (5) HTN (hypertension): Blood pressure here is normal, unclear if this is a definite diagnosis She is only on Lasix for heart failure and actually her daughter reports that she had low blood pressures when she was on metoprolol with her atrial fibrillation (6) HLD (hyperlipidemia): Continue pravastatin 10 mg PO Qam (7) Hypokalemia: Chronic- she is on Kdur as well as Kphos packets multiple times a day - She feels this is also why she was just put on Fludrocortisone 01.mg -A.m. fasting cortisol pending - Urine lytes pending-not collected -Fludrocortisone here has been held for now (8) Obesity: Chronic obesity, BMI 54.9 - No acute needs, needs weight loss Has a history of gastric bypass surgery but gained a lot of the weight back (9) Gastric bypass status for obesity: As above - Follow labs- supplements and complexes may need added/adjusted (10) MOHAMUD (obstructive sleep apnea): She wears CPAP at night but is unaware of settings - we have no records available - Her daughter will bring in her machine - CPAP at night or while sleeping (11) Dementia: Baseline , Mild forgetful (12) Dizziness: This has been going on for 3 months per the daughter, where they adjusted her medications Perhaps this was secondary to her newly diagnosed atrial fibrillation She still complains of some mild dizziness here but is improved she reports (13) Depression: Continue Lexapro (14) Abnormal ECG: ECG with ST and T wave abnormality in the anterolateral leads consistent on repeat ECG She denies any chest pain, troponin is slightly detectable but in the normal range x4 I believe her ECG is consistent with digoxin effect Follow on telemetry (15) DVT prophylaxis: SCDs, holding home Eliquis as above for GI bleed Disposition-continued stay on med telemetry. Plan for EGD and colonoscopy on Thursday. She will need PT/OT consultations and will likely need placement back at [facility] upon discharge from whence she came Admission and Anticipated Discharge Date Admission Date: February 23, 2021 Subjective Patient had very large black loose stool overnight and a very large green stool this afternoon that was also loose. She denies any nausea or vomiting. She is eating. She denies chest pain or shortness of breath. Her daughter is at the bedside and reports her ankles look little bit puffier than they had been when she [facility] week. Daughter reports that the patient's weight when she went into [facility] was 138 kg and she was surprised to hear that she is now down to 119 kg. I discussed her care with gastroenterology who plans on performing EGD and colonoscopy tomorrow. The patient has already just started her bowel prep. Telemetry with atrial fibrillation with rates in the 80s to 100s. The daughter reports that she was just started on digoxin on 16 February. Review of Systems Review of Systems: All systems reviewed & are unremarkable except as noted in HPI & below Physical Exam Constitutional: WD/WN, vitals as above Eyes: + anicteric sclerae Neck: trachea midline, no thyromegaly Respiratory: normal respiratory effort, lungs clear to auscultation Cardiovascular: Rate/Rhythm: regular rate and + irregularly irregular Heart Sounds: no murmur Extremities: + edema (Trace pitting edema of the ankles and feet bilaterally R>L) Chest (Breasts): Chest: normal inspection of chest Gastrointestinal (Abdomen): normal bowel sounds, soft, nontender, no hepatosplenomegaly (Obese) Musculoskeletal: Extremities: no cyanosis and no clubbing Skin: + wound (Right knee small open and left dorsal 2nd/3rd toes w/ old blood blister) and + ecchymosis (Left knee) Neurologic: moves all extremities and awake; no focal motor deficits Psychiatric: Orientation: alert, oriented to person and cooperative Speech: normal rate/rhythm/volume of speech Affect: euthymic affect Cognition: + recent memory not intact Results & Data Results & Data (MN) Vital Signs (Past 12 Hours) Vital Signs Temp Pulse Pulse Resp BP Pulse Ox 02/24/21 15:16 36.9 C 101 H 18 133/79 02/24/21 14:20 82 02/24/21 11:00 36.7 C 79 18 136/71 92 02/24/21 07:26 37.2 C 89 18 125/74 91 Laboratory Results 02/24/21 02/24/21 02/24/21 Range/Units 05:31 05:31 05:31 WBC (4.8-10.8) K/uL RBC (4.2-5.4) M/uL Hgb (12.0-16.0) g/dL Hct (37-47) % MCV (80-100) fL MCH (25-34) pg MCHC (32-36) g/dL RDW Std Deviation (36.4-46.3) fL RDW Coeff of Bea (11.5-14.5) % Plt Count (130-400) K/uL MPV (7.4-10.4) fL Immature Gran % (Auto) % Neut % (Auto) % Lymph % (Auto) % [place] % (Auto) % Eos % (Auto) % Baso % (Auto) % Neut # (Auto) (1.4-6.5) K/uL Lymph # (Auto) (1.2-3.4) K/uL [place] # (Auto) (0.11-0.59) K/uL Eos # (Auto) (0-0.5) K/uL Baso # (Auto) (0-0.2) K/uL Immature Gran # (Auto) (0.00-0.02) K/uL Sodium (136-145) mmol/L Potassium (3.5-5.1) mmol/L Chloride (98-107) mmol/L Carbon Dioxide (21-32) mmol/L Anion Gap (3-11) BUN (7-18) mg/dl Creatinine (0.6-1.2) mg/dl Est Cr Clr Drug Dosing ml/min Est GFR ( Amer) ml/min Est GFR (Non-Af Amer) ml/min BUN/Creatinine Ratio (10-20) Glucose (70-99) mg/dl Calcium (8.5-10.1) mg/dl Magnesium (1.8-2.4) mg/dl Iron (35-150) mcg/dl Transferrin (200-360) mg/dl Transferrin % Sat (15-50) % Ferritin (8-388) ng/ml Troponin I 0.035 (0-0.045) ng/ml Vitamin B12 1981 H (193-986) pg/ml Folate > 20.00 (>5.38) ng/ml TSH (0.300-4.500) uIu/ml Cortisol AM Sample Nasal Screen MRSA (PCR) (Negative) Digoxin 3.1 H* (0.8-2.0) ng/ml 02/24/21 02/24/21 02/24/21 Range/Units 05:31 05:31 05:31 WBC 7.09 (4.8-10.8) K/uL RBC 3.63 L (4.2-5.4) M/uL Hgb 10.4 L (12.0-16.0) g/dL Hct 35.1 L (37-47) % MCV 96.7 (80-100) fL MCH 28.7 (25-34) pg MCHC 29.6 L (32-36) g/dL RDW Std Deviation 67.3 H (36.4-46.3) fL RDW Coeff of Bea 18.9 H (11.5-14.5) % Plt Count 381 (130-400) K/uL MPV 9.1 (7.4-10.4) fL Immature Gran % (Auto) 1.6 % Neut % (Auto) 64.5 % Lymph % (Auto) 10.3 % [place] % (Auto) 17.9 % Eos % (Auto) 5.1 % Baso % (Auto) 0.6 % Neut # (Auto) 4.58 (1.4-6.5) K/uL Lymph # (Auto) 0.73 L (1.2-3.4) K/uL [place] # (Auto) 1.27 H (0.11-0.59) K/uL Eos # (Auto) 0.36 (0-0.5) K/uL Baso # (Auto) 0.04 (0-0.2) K/uL Immature Gran # (Auto) 0.11 H (0.00-0.02) K/uL Sodium 138 (136-145) mmol/L Potassium 4.1 (3.5-5.1) mmol/L Chloride 99 (98-107) mmol/L Carbon Dioxide 30 (21-32) mmol/L Anion Gap 9.0 (3-11) BUN 20 H (7-18) mg/dl Creatinine 1.07 (0.6-1.2) mg/dl Est Cr Clr Drug Dosing 51.8 ml/min Est GFR ( Amer) 58.8 ml/min Est GFR (Non-Af Amer) 50.7 ml/min BUN/Creatinine Ratio 18.6 (10-20) Glucose 64 L (70-99) mg/dl Calcium 8.9 (8.5-10.1) mg/dl Magnesium 1.9 (1.8-2.4) mg/dl Iron 78 (35-150) mcg/dl Transferrin 213 (200-360) mg/dl Transferrin % Sat 26 (15-50) % Ferritin 127.6 (8-388) ng/ml Troponin I (0-0.045) ng/ml Vitamin B12 (193-986) pg/ml Folate (>5.38) ng/ml TSH 2.810 (0.300-4.500) uIu/ml Cortisol AM Sample Pending Nasal Screen MRSA (PCR) (Negative) Digoxin (0.8-2.0) ng/ml 02/23/21 02/23/21 02/23/21 Range/Units 23:17 17:09 16:15 WBC (4.8-10.8) K/uL RBC (4.2-5.4) M/uL Hgb (12.0-16.0) g/dL Hct (37-47) % MCV (80-100) fL MCH (25-34) pg MCHC (32-36) g/dL RDW Std Deviation (36.4-46.3) fL RDW Coeff of Bea (11.5-14.5) % Plt Count (130-400) K/uL MPV (7.4-10.4) fL Immature Gran % (Auto) % Neut % (Auto) % Lymph % (Auto) % [place] % (Auto) % Eos % (Auto) % Baso % (Auto) % Neut # (Auto) (1.4-6.5) K/uL Lymph # (Auto) (1.2-3.4) K/uL [place] # (Auto) (0.11-0.59) K/uL Eos # (Auto) (0-0.5) K/uL Baso # (Auto) (0-0.2) K/uL Immature Gran # (Auto) (0.00-0.02) K/uL Sodium (136-145) mmol/L Potassium (3.5-5.1) mmol/L Chloride (98-107) mmol/L Carbon Dioxide (21-32) mmol/L Anion Gap (3-11) BUN (7-18) mg/dl Creatinine (0.6-1.2) mg/dl Est Cr Clr Drug Dosing ml/min Est GFR ( Amer) ml/min Est GFR (Non-Af Amer) ml/min BUN/Creatinine Ratio (10-20) Glucose (70-99) mg/dl Calcium (8.5-10.1) mg/dl Magnesium (1.8-2.4) mg/dl Iron (35-150) mcg/dl Transferrin (200-360) mg/dl Transferrin % Sat (15-50) % Ferritin (8-388) ng/ml Troponin I 0.029 0.025 (0-0.045) ng/ml Vitamin B12 (193-986) pg/ml Folate (>5.38) ng/ml TSH (0.300-4.500) uIu/ml Cortisol AM Sample Nasal Screen MRSA (PCR) Negative (Negative) Digoxin (0.8-2.0) ng/ml ECG Additional Comments: ECG from 02/24 with atrial fibrillation, normal rate, normal QTC, ST/T wave abnormality in anterolateral leads, likely consistent with digoxin effect Similar to ECG from 02/23 PG Care Time/CCT Total # of Minutes Spent Total Time Spent with Patient: Total time spent is greater than 50% in coordination of care (as documented) at patient's floor/unit and/or counseling patient: Coding Level of Care Code 29502 Subseq Hosp Care Lvl 3 Diagnoses Gastrointestinal hemorrhage, unspecified K92.2 Gastritis type: unspecified gastritis Anemia D64.9 Anemia type: unspecified type Afib I48.20 Atrial fibrillation type: unspecified chronic CHF (congestive heart failure) I50.9 Heart failure type: unspecified Heart failure chronicity: chronic HTN (hypertension) I10 Hypertension type: essential hypertension HLD (hyperlipidemia) E78.5 Hyperlipidemia type: unspecified Hypokalemia E87.6 Obesity E66.01; Z68.43 Obesity type: due to excess calories Obesity classification: adult class 3 (BMI >= 40) Serious obesity comorbidity presence: with serious comorbidity Body mass index: BMI 50.0-59.9 Gastric bypass status for obesity Z98.84 MOHAMUD (obstructive sleep apnea) G47.33 Dementia F03.90 Dementia type: unspecified type Dementia behavioral disturbance: without behavioral disturbance Dizziness R42 Depression F32.9 Abnormal ECG R94.31 DVT prophylaxis Z29.9 (1) Gastrointestinal hemorrhage, unspecified Gastritis type: unspecified gastritis (2) Anemia Anemia type: unspecified type Qualified Code(s): D64.9 - Anemia, unspecified (3) Afib Atrial fibrillation type: unspecified chronic Qualified Code(s): I48.20 - Chronic atrial fibrillation, unspecified (4) CHF (congestive heart failure) Heart failure type: unspecified Heart failure chronicity: chronic Qualified Code(s): I50.9 - Heart failure, unspecified (5) HTN (hypertension) Hypertension type: essential hypertension Qualified Code(s): I10 - Essential (primary) hypertension (6) HLD (hyperlipidemia) Hyperlipidemia type: unspecified Qualified Code(s): E78.5 - Hyperlipidemia, unspecified (7) Obesity Obesity type: due to excess calories Obesity classification: adult class 3 (BMI >= 40) Serious obesity comorbidity presence: with serious comorbidity Body mass index: BMI 50.0-59.9 Qualified Code(s): E66.01 - Morbid (severe) obesity due to excess calories; Z68.43 - Body mass index [BMI] 50.0-59.9, adult (8) Dementia Dementia type: unspecified type Dementia behavioral disturbance: without behavioral disturbance Qualified Code(s): F03.90 - Unspecified dementia without behavioral disturbance
[2021-02-24] MEDS ORDERED: LAVAGE SOLUTION 4000ML PO SCH (18:00)
[2021-02-24] MEDS: ACETAMINOPHEN 325 MG TAB PO PRN (20:11)
[2021-02-25 00:28] LABS: Potassium Random Urine 42.8 mmol/L; Urine Potassium 42.8 mmol/L
[2021-02-25] MEDS: PANTOprazole 40 MG in SYRINGE 0 ML IV SCH ×2 (07:34→20:12)
[2021-02-25] MEDS: SILVER SULFADIAZINE 1% CR 50 GM JAR EXT SCH ×2 (07:34→20:12)
[2021-02-25] MEDS: POTASSIUM CHLORIDE CRTAB 20 MEQ TABCR PO SCH ×2 (08:00→16:00)
[2021-02-25] MEDS: PRAVASTATIN SOD 10 MG TAB PO SCH (08:00)
[2021-02-25] MEDS: ESCITALOPRAM OXALATE 10 MG TAB PO SCH (08:00)
[2021-02-25] MEDS: FUROSEMIDE 40 MG TAB PO SCH ×2 (08:00→16:42)
[2021-02-25 08:12] LABS: Basophils # (auto) 0.02 K/uL (0-0.2); Basophils % (auto) 0.3 %; Eosinophils # (auto) 0.31 K/uL (0-0.5); Eosinophils % (auto) 4.6 %; Hematocrit (blood only) 36.9 % (37-47); Immature Granulocytes # (auto) 0.17 K/uL (0.00-0.02); Immature Granulocytes % (auto) 2.5 %; Lymphocytes # (auto) 1.06 K/uL (1.2-3.4); Lymphocytes % (auto) 15.8 %; Mean Corpuscular Hemoglobin 28.7 pg (25-34); Mean Corpuscular Hgb Conc 29.8 g/dL (32-36); Mean Corpuscular Volume 96.3 fL (80-100); Mean Platelet Volume 8.9 fL (7.4-10.4); Monocytes # (auto) 0.71 K/uL (0.11-0.59); Monocytes % (auto) 10.6 %; Neutrophils # (auto) 4.45 K/uL (1.4-6.5); Neutrophils % (auto) 66.2 %; Platelet Count 376 K/uL (130-400); RDW Coefficient of Variation 18.9 % (11.5-14.5); RDW Standard Deviation 66.5 fL (36.4-46.3); Red Blood Count 3.83 M/uL (4.2-5.4); White Blood Count 6.72 K/uL (4.8-10.8)
--- NOTE | 2021-02-25 08:16 | Anesthesiology Consultation ---
Date of Service February 25, 2021 Assessment & Plan Chart Review Chart Review: Acceptable Risk for Surgery, Patient NOT seen in Pre Admission Testing and entry table operator initiated Consults Requested none History Surgery Operation Date: 02/25/21 17:00 Proposed Procedures p Colonoscopy EGD Dr. Reyes - Mac Reyes MD Height/Weight Height: 4 ft 10 in Weight: 119.3 kg Allergies Allergy/AdvReac Type Severity Reaction Status Date / Time cantaloupe Allergy Mild Itching Verified 02/24/21 17:01 melon Allergy Mild itching Verified 02/24/21 17:01 Anesthetics - Amide Type - AdvReac Severe Stops Unverified 02/23/21 12:11 Select A Breathings Anesthetics - Constanza Type- AdvReac Severe Stops Unverified 02/23/21 12:11 Parabens Breathing lactose AdvReac Mild Gastrointestinal Verified 02/24/21 17:01 Upset meperidine [From Demerol] AdvReac Mild Vomiting Unverified 02/23/21 12:11 Medications Home Medications Medication Instructions Recorded Confirmed Last Taken apixaban 5 mg PO BID 02/23/21 02/23/21 02/23/21 digoxin 250 mcg PO PM 02/23/21 02/23/21 02/22/21 docusate sodium 100 mg PO TID 02/23/21 02/23/21 02/23/21 escitalopram oxalate 10 mg PO QAM 02/23/21 02/23/21 02/23/21 fludrocortisone 0.1 mg PO QAM 02/23/21 02/23/21 02/23/21 furosemide 40 mg PO BIDM 02/23/21 02/23/21 02/23/21 iron,carbonyl-vitamin C [Vitron-C] 1 tab PO TIDM 02/23/21 02/23/21 02/23/21 magnesium oxide 400 mg PO BIDM 02/23/21 02/23/21 02/23/21 melatonin 3 mg PO HS PRN 02/23/21 02/23/21 02/22/21 pantoprazole 40 mg PO DAILYBB 02/23/21 02/23/21 02/23/21 potassium chloride 40 meq PO BIDM 02/23/21 02/23/21 02/23/21 potassium phosphate m-/d-basic 1 packet PO TIDM 02/23/21 02/23/2102/23/21 pravastatin 10 mg PO QAM 02/23/21 02/23/21 02/23/21 silver sulfadiazine 1 applic TOPICAL BID 02/23/21 02/23/21 02/23/21 tramadol 50 mg PO Q4H PRN 02/23/21 02/23/21 Unknown Active Medications Generic Name Dose Route Start Last Admin Trade Name Freq PRN Reason Stop Dose Admin Acetaminophen 650 mg 02/23/21 15:58 02/24/21 20:11 Acetaminophen 325 Mg Tab PO 03/25/21 15:57 650 mg Q4H PRN Administration Pain or Fever Escitalopram Oxalate 10 mg 02/24/21 09:00 02/24/21 08:50 Escitalopram Oxalate 10 Mg Tab PO 03/26/21 08:59 10 mg QAM APRIL Administration Furosemide 40 mg 02/23/21 17:00 02/24/21 16:49 Furosemide 40 Mg Tab PO 03/25/21 16:59 40 mg BIDM APRIL Administration Pantoprazole Sodium 40 mg/ 10 mls @ 5 mls/min 02/23/21 21:00 02/25/21 07:34 Syringe IV 03/25/21 20:59 5 mls/min BID APRIL Administration Miconazole Nitrate 1 appln 02/24/21 09:35 02/24/21 19:59 Miconazole Nitrate Powder 43 Gm EXT 03/26/21 09:34 1 appln PRN PRN Administration Affected Skin Folds Potassium Chloride 40 meq 02/23/21 17:00 02/24/21 16:49 Potassium Chloride Crtab 20 Meq Tabcr PO 03/25/21 16:59 40 meq BIDM APRIL Administration Potassium Phosphate 1 tab 02/23/21 17:00 02/24/21 16:49 Pot Phosphate Monobasic W/ Sod Tab PO 03/25/21 16:59 1 tab TIDM APRIL Administration Pravastatin Sodium 10 mg 02/24/21 09:00 02/24/21 08:51 Pravastatin Sod 10 Mg Tab PO 03/26/21 08:59 10 mg QAM APRIL Administration Silver Sulfadiazine 1 appln 02/23/21 21:00 02/25/21 07:34 Silver Sulfadiazine 1% Cr 50 Gm Jar EXT 03/25/21 20:59 1 appln BID APRIL Administration NPO Date Last Intake of Fluids: 02/25/21 Time Last Intake of Fluids: 05:00 Last Intake of Fluids Comment: prep Date Last Intake of Solids: 02/24/21 Time Last Intake of Solids: 17:00 Past Medical History Medical History (Updated 02/25/21 @ 08:15 by Cecilio Roach MD) Acute GI bleeding Afib Anemia CHF (congestive heart failure) Dementia Depression Dizziness HLD (hyperlipidemia) HTN (hypertension) Hypokalemia Obesity MOHAMUD (obstructive sleep apnea) Tonsillectomy planned Unspecified reduction defect of unspecified upper limb Past Family History Family History Other Coronary heart disease Cystic kidney disease Diabetes Dyslipidemia Osteoarthritis Past Surgical History Surgical History Gastric bypass status for obesity H/O: hysterectomy Social History Smoking Status: Never smoker Hx Alcohol Use: No Hx Substance Use: No Physical Exam Vital Signs Last Vital Signs Temp 36.8 C 02/25/21 07:29 Pulse 81 02/25/21 07:29 Resp 16 02/25/21 07:29 BP 148/83 H 02/25/21 07:29 Pulse Ox 93 02/25/21 07:29 Testing Laboratory Results 02/25/21 07:38 PT 12.6 Seconds (9.0-12.0) H 02/23/21 11:15 INR 1.3 (0.9-1.1) H 02/23/21 11:15 APTT 34.7 Seconds (21.0-31.0) H 02/23/21 11:15 Blood Type O Positive 02/23/21 11:15 Antibody Screen NEGATIVE 02/23/21 11:15 Electrocardiogram Atrial fibrillation Septal infarct , age undetermined ST & T wave abnormality, consider inferolateral ischemia Abnormal ECG When compared with ECG of 23-FEB-2021 11:14, Septal infarct is now Present T wave inversion no longer evident in Anterior leads
[2021-02-25 08:38] LABS: BUN Creatinine Ratio 14.8 (10-20); Calcium 8.8 mg/dl (8.5-10.1); Creatinine Clr Calc Pharmacy 56.6 ml/min; Est GFR (African American) 65.4 ml/min; Est GFR (Non-African American) 56.4 ml/min; Magnesium 1.6 mg/dl (1.8-2.4); Potassium 3.5 mmol/L (3.5-5.1)
[2021-02-25] MEDS: POT PHOSPHATE MONOBASIC W/ SOD TAB PO SCH ×3 (09:00→16:43)
--- NOTE | 2021-02-25 09:39 | Hospitalist Progress Note ---
Date of Service February 25, 2021 Assessment & Plan (1) Gastrointestinal hemorrhage, unspecified: This patient is a 76 yo obese female with Afib on Eliquis, HTN, hypokalemia, depression, MCI,gastric bypass, here with GI bleed and mild anemia Hemodynamically stable Hgb stable She has a history of gastric bypass and a history of a bleeding ulcer in the stomach approximately 10 years ago She is on apixaban which has been held She is Hemoccult positive here Apparently she was transfused 2 units of blood 2 weeks ago and [facility] during her stay for CHF and new onset atrial fibrillation She is hemodynamically stable here -EGD/colonoscopy today -Continue Protonix 40 mg IV BID -Follow CBC in the morning -Continue holding Eliquis (2) Anemia: As above, patient was transfused 2 units of PRBCs during previous admission at outside hospital for hemoglobin of 8-9 Hemoglobin here as above is at 10.5 with melena She was started on oral iron supplementation upon discharge to rehab MCV is borderline macrocytic She does have a history of gastric bypass surgery Iron studies normal here, B12 and folate are also normal TSH normal Likely secondary to GI bleeding Follow CBC Continue iron supplementation upon discharge (3) Afib: Rate controlled. This was new in onset during recent hospitalization at [facility] She follows with Dr. Knight of cardiology at [facility] Her rates here are fairly well controlled in the 80s to 100s Her daughter reports that she had low blood pressures on metoprolol and this was discontinued -She is on digoxin 250 mcg p.o. once daily was just started on this about 1 week ago Digoxin level here is elevated - Continue digoxin elevated at 3.1-no evidence of digoxin toxicity clinically, potassium level is normal -Holding Eliquis as above for GI bleed -Continue reduced dose of digoxin -Echocardiogram I believe was performed at the outside hospital, but I do not have a copy of it here (4) CHF (congestive heart failure): HFpEF- Patient reports that her EF 50%, but I do not have a copy of the echocardiogram report here Mild volume overload with edema in the ankles and feet I do not have record of her weight upon discharge from recent hospitalization, however her daughter reports she was 136 kg before she went into the [facility] 2 weeks ago -Continue Lasix 40 MG PO BID -Daily weights, I's and O's (5) HTN (hypertension): Blood pressure here is normal, unclear if this is a definite diagnosis She is only on Lasix for heart failure and actually her daughter reports that she had low blood pressures when she was on metoprolol with her atrial fibrillation (6) HLD (hyperlipidemia): Continue pravastatin 10 mg PO Qam (7) Hypokalemia: Chronic- she is on Kdur as well as Kphos packets multiple times a day - She feels this is also why she was just put on Fludrocortisone 01.mg - AM cortisol normal -Fludrocortisone here has been held for now (8) Obesity: Chronic obesity, BMI 54.9 - No acute needs, needs weight loss Has a history of gastric bypass surgery but gained a lot of the weight back (9) Gastric bypass status for obesity: As above - Follow labs- supplements and complexes may need added/adjusted (10) MOHAMUD (obstructive sleep apnea): She wears CPAP at night but is unaware of settings - we have no records available - Her daughter will bring in her machine - CPAP at night or while sleeping (11) Altered mental state: Off baseline per brother in law. CT head. UA. (12) Dementia: Baseline Mild forgetful (13) Dizziness: This has been going on for 3 months per the daughter, where they adjusted her medications Perhaps this was secondary to her newly diagnosed atrial fibrillation She still complains of some mild dizziness here but is improved she reports (14) Depression: Continue Lexapro (15) Abnormal ECG: ECG with ST and T wave abnormality in the anterolateral leads consistent on repeat ECG She denies any chest pain, troponin is slightly detectable but in the normal range x4 I believe her ECG is consistent with digoxin effect Follow on telemetry (16) DVT prophylaxis: SCDs, holding home Eliquis as above for GI bleed Disposition-continued stay on med telemetry. Plan for EGD and colonoscopy today She will need PT/OT consultations and will likely need placement back at [facility] upon discharge from whence she came Admission and Anticipated Discharge Date Admission Date: February 23, 2021 Subjective Patient seen prior to EGD/colonoscopy. Appears general confused. Confabulates poorly. She was initially unaware she was in hospital. Disorientated x3. Pleasantly confused. Thinks the year is 2005. No difficulty finding the right words. No slurred speech. Able to tell me a little about her hospitalization in [place] although. Discussed with her brother in-law who is an OBGYN. Feels she has been confused for a few days prior to her current hospitalization. No previous CT head performed. She is usually a little quirky but this is a big change for her in the last week. She has been hospitalized and been to rehab recently so lots of changes of environment. No suspicion of seizure like activity. She does not wear her CPAP at home. Review of Systems Review of Systems: All systems reviewed & are unremarkable except as noted in HPI & below Physical Exam Constitutional: WD/WN, vitals as above Eyes: + anicteric sclerae Neck: trachea midline, no thyromegaly Respiratory: normal respiratory effort, lungs clear to auscultation Cardiovascular: Rate/Rhythm: regular rate and + irregularly irregular Heart Sounds: no murmur Extremities: + edema (Trace pitting edema of the ankles and feet bilaterally R>L) Chest (Breasts): Chest: normal inspection of chest Gastrointestinal (Abdomen): normal bowel sounds, soft, nontender, no hepatosplenomegaly (Obese) Musculoskeletal: Extremities: no cyanosis and no clubbing Skin: + wound (Right knee small open and left dorsal 2nd/3rd toes w/ old blood blister) and + ecchymosis (Left knee) Neurologic: moves all extremities and awake; no focal motor deficits Psychiatric: Orientation: alert, oriented to person and cooperative; + not oriented to place and + not oriented to time Speech: normal rate/rhythm/volume of speech Affect: euthymic affect Cognition: + recent memory not intact Genitourinary: no CVA tenderness Results & Data Results & Data ([facility]) Vital Signs (Past 12 Hours) Vital Signs Temp Pulse Pulse Resp BP Pulse Ox 02/25/21 07:29 36.8 C 81 16 148/83 H 93 02/25/21 03:42 36.3 C L 83 18 136/91 94 02/24/21 23:51 36.8 C 88 18 119/63 90 02/24/21 22:20 87 PG Care Time/CCT Total # of Minutes Spent Total Time Spent with Patient: Total time spent is greater than 50% in coordination of care (as documented) at patient's floor/unit and/or counseling patient: Coding Level of Care Code 22090 Subseq Hosp Care Lvl 3 Diagnoses Gastrointestinal hemorrhage, unspecified K92.2 Gastritis type: unspecified gastritis Anemia D64.9 Anemia type: unspecified type Afib I48.20 Atrial fibrillation type: unspecified chronic CHF (congestive heart failure) I50.9 Heart failure chronicity: chronic Heart failure type: unspecified HTN (hypertension) I10 Hypertension type: essential hypertension HLD (hyperlipidemia) E78.5 Hyperlipidemia type: unspecified Hypokalemia E87.6 Obesity E66.01; Z68.43 Body mass index: BMI 50.0-59.9 Obesity classification: adult class 3 (BMI >= 40) Obesity type: due to excess calories Serious obesity comorbidity presence: with serious comorbidity Gastric bypass status for obesity Z98.84 MOHAMUD (obstructive sleep apnea) G47.33 Altered mental state R41.82 Dementia F03.90 Dementia behavioral disturbance: without behavioral disturbance Dementia type: unspecified type Dizziness R42 Depression F32.9 Abnormal ECG R94.31 DVT prophylaxis Z29.9 (1) Gastrointestinal hemorrhage, unspecified Gastritis type: unspecified gastritis (2) CHF (congestive heart failure) Heart failure chronicity: chronic Heart failure type: unspecified Qualified Code(s): I50.9 - Heart failure, unspecified (3) Anemia Anemia type: unspecified type Qualified Code(s): D64.9 - Anemia, unspecified (4) Afib Atrial fibrillation type: unspecified chronic Qualified Code(s): I48.20 - Chronic atrial fibrillation, unspecified (5) Dementia Dementia behavioral disturbance: without behavioral disturbance Dementia type: unspecified type Qualified Code(s): F03.90 - Unspecified dementia without behavioral disturbance (6) HLD (hyperlipidemia) Hyperlipidemia type: unspecified Qualified Code(s): E78.5 - Hyperlipidemia, unspecified (7) HTN (hypertension) Hypertension type: essential hypertension Qualified Code(s): I10 - Essential (primary) hypertension (8) Obesity Body mass index: BMI 50.0-59.9 Obesity classification: adult class 3 (BMI >= 40) Obesity type: due to excess calories Serious obesity comorbidity presence: with serious comorbidity Qualified Code(s): E66.01 - Morbid (severe) obesity due to excess calories; Z68.43 - Body mass index [BMI] 50.0-59.9, adult
--- NOTE | 2021-02-25 09:41 | History & Physical Bridge Note ---
Date of Service February 25, 2021 History & Physical Bridge Note I have examined the patient, reviewed the History & Physical and in the interval since the performance of the History & Physical I have noted the following changes of clinical significance: Patient completed bowel preparation. Denies any abdominal pain or overt GIB sx. H&H is stable. PE: A&Ox3. Lungs CTA bilaterally. RRR. Abdomen soft, hyperactive bowel sounds. Nontender abdomen. A/P: Anemia. 1. NPO for now. 2. Proceed with EGD and colonoscopy today by Dr. Reyes. 3. Further recommendations pending results of testing.
[2021-02-25] MEDS ORDERED: PROPOFOL IV EMULSION 10 MG/ML 20 ML VIAL IV ONE ×2 (11:19→12:16)
[2021-02-25] MEDS ORDERED: fentaNYL citrate 100 MCG/2 ML VIAL ONE (11:19)
--- NOTE | 2021-02-25 12:12 | GI REPORT ---
Patient Name: Bella Stack Procedure Date: 02/25/2021 11:20 AM Date of : 1945 Admit Type: Inpatient Age: 76 Gender: Female Attending MD: Mac Reyes MD Procedure: Upper GI endoscopy Providers: Mac Reyes MD Referring MD: Massimo Prater, Raulito Schmitt Md Indications: Unexplained iron deficiency anemia Medicines: Monitored Anesthesia Care Complications: No immediate complications. Estimated blood loss: None. Estimated Blood Loss: Estimated blood loss: none. Procedure: Pre-Anesthesia Assessment: - Prior Anticoagulants: The patient has taken no previous anticoagulant or antiplatelet agents. - ASA Grade Assessment: II - A patient with mild systemic disease. After obtaining informed consent, the endoscope was passed under direct vision. Throughout the procedure, the patient's blood pressure, pulse, and oxygen saturations were monitored continuously. The Scope was introduced through the mouth, and advanced to the second part of duodenum. The upper GI endoscopy was accomplished without difficulty. The patient tolerated the procedure well. Findings: The examined esophagus was normal. The anastomosis was normal. The anastomosis and examined duodenum were normal including the efferent and afferent loops. No evidence of blood, ulcers, AVMs. Diffuse mild inflammation characterized by erythema was found in the stomach. Impression: - Normal esophagus. - Normal anastomosis. - Normal anastomosis and examined duodenum. - Gastritis. - No specimens collected. Recommendation: - Return patient to hospital [facility] for ongoing care. - Advance diet as tolerated today. Mac Reyes MD 02/25/2021 12:11:41 PM This report has been signed electronically. Note Initiated On: 02/25/2021 11:20 AM Number of Addenda: 0 I attest to the content of the Intraoperative Record and orders documented therein, exceptions below {[id number]}
[2021-02-25] MEDS ORDERED: ALBUTEROL HFA INHALER 8.5 GM ONE (12:14)
[2021-02-25] MEDS ORDERED: PHENYLEPHRINE 100MCG/ML 5ML SYR ONE (12:14)
--- NOTE | 2021-02-25 12:19 | GI REPORT ---
Patient Name: Bella Stack Procedure Date: 02/25/2021 11:19 AM Date of : 1945 Admit Type: Inpatient Age: 76 Gender: Female Attending MD: Mac Reyes MD Procedure: Colonoscopy Providers: Mac Reyes MD Referring MD: Massimo Prater, Raulito Schmitt Md Indications: Unexplained iron deficiency anemia Medicines: Monitored Anesthesia Care Complications: No immediate complications. Estimated blood loss: None. Estimated Blood Loss: Estimated blood loss: none. Procedure: Pre-Anesthesia Assessment: - Prior Anticoagulants: The patient has taken no previous anticoagulant or antiplatelet agents. - ASA Grade Assessment: III - A patient with severe systemic disease. After I obtained informed consent, the scope was passed under direct vision. Throughout the procedure, the patient's blood pressure, pulse, and oxygen saturations were monitored continuously. The scope was introduced through the anus with the intention of advancing to the cecum. The scope was advanced to the transverse colon before the procedure was aborted. Medications were given. The colonoscopy was performed without difficulty. The patient tolerated the procedure well. The quality of the bowel preparation was fair. Findings: The colon (entire examined portion) was significantly redundant. unable to advance scope beyond the mid-transverse colon as a result, procedure aborted. No evidence of blood nor bleeding throughout examined colon. A 6 mm polyp was found in the transverse colon. The polyp was sessile. The polyp was removed with a cold snare. Resection and retrieval were complete. To prevent bleeding after the polypectomy, one hemostatic clip was successfully placed. There was no bleeding at the end of the procedure. Non-bleeding external hemorrhoids were found. The hemorrhoids were medium-sized. Impression: - Preparation of the colon was fair. - Redundant colon. - One 6 mm polyp in the transverse colon, removed with a cold snare. Resected and retrieved. Clip was placed. - Non-bleeding external hemorrhoids. Recommendation: - Return patient to hospital [facility] for ongoing care. - Advance diet as tolerated today. - Await pathology results. trend H/H, transfuse prn, supportive care if hgb remains stable tomorrow can restart eliquis. Mac Reyes MD 02/25/2021 12:19:27 PM This report has been signed electronically. Note Initiated On: 02/25/2021 11:19 AM Number of Addenda: 0 I attest to the content of the Intraoperative Record and orders documented therein, exceptions below {[id number]}
--- NOTE | 2021-02-25 12:39 | Anesthesiology Progress Note ---
Date of Service February 25, 2021 Anesthesia Post Procedure Vital Signs Vital Signs: Temp Pulse Pulse Resp BP BP Pulse Ox 02/25/21 12:30 92 H 18 127/60 96 02/25/21 12:12 88 18 132/70 98 02/25/21 10:59 37.1 C 88 18 141/74 H 91 02/25/21 07:29 36.8 C 81 16 148/83 H 93 02/25/21 03:42 36.3 C L 83 18 136/91 94 02/24/21 23:51 36.8 C 88 18 119/63 90 02/24/21 22:20 87 02/24/21 20:10 36.6 C 89 18 141/73 H 93 02/24/21 15:16 36.9 C 101 H 18 133/79 02/24/21 14:20 82 Transfer of Care Handoff Completed per policy Notes Mental Status: alert / awake / arousable and participated in evaluation Patient Amnestic to Procedure: Yes Nausea / Vomiting: adequately controlled Pain: adequately controlled Airway Patency, RR, SpO2: stable & adequate BP & HR: stable & adequate Hydration State: stable & adequate Anesthetic Complications: no major complications apparent and Pt Satisfied with anesthetic care
[2021-02-25] MEDS: DIGOXIN 0.125 MG TAB PO SCH (16:42)
--- NOTE | 2021-02-25 18:23 | CT Scan Report ---
CT OF THE HEAD WITHOUT CONTRAST CLINICAL HISTORY: generalized confusion, Eliquis COMPARISON STUDY: No previous studies for comparison. CT DOSE: 1437.38 mGy.cm TECHNIQUE: Helical axial images of the head were obtained without IV contrast. Automated exposure con trol was utilized for the study. A dose lowering technique was utilized adhering to the principles o f ALARA. FINDINGS: This exam is mildly compromised by artifact. No acute intracranial hemorrhage, midline shif t or mass effect is present. Ventricular system is unremarkable. Basal cisterns are patent. White mat ter hypodensity suggests small vessel disease. There are no findings to suggest acute dural sinus thr ombosis or acute territorial infarct. Atrophy is noted. Right mastoid air cells are partially opacifi ed. Small amount of fluid within the left mastoid air cells is noted. IMPRESSION: 1. No acute intracranial findings. Exam mildly compromised by artifact. 2. Partially opacified bilateral mastoid air cells. ACT 112: Negative or not required by law. Electronically signed by: Rodger Naqvi M.D. 02/25/2021 6:21 PM
--- NOTE | 2021-02-25 21:32 | Electrocardiogram Report ---
Test Reason : Blood Pressure : / mmHG Vent. Rate : 086 BPM Atrial Rate : 075 BPM P-R Int : 000 ms QRS Dur : 112 ms QT Int : 374 ms P-R-T Axes : 000 -27 169 degrees QTc Int : 447 ms Atrial fibrillation Abnormal ECG When compared with ECG of 23-FEB-2021 11:14, No significant change Confirmed by Driss Mitchell ([id number]) on 02/25/2021 9:32:39 PM Referred By: [facility] Confirmed By:Driss Mitchell
[2021-02-26] MEDS: FUROSEMIDE 40 MG TAB PO SCH ×2 (08:22→16:44)
[2021-02-26] MEDS: PRAVASTATIN SOD 10 MG TAB PO SCH (08:23)
[2021-02-26] MEDS: POT PHOSPHATE MONOBASIC W/ SOD TAB PO SCH ×3 (08:23→16:44)
[2021-02-26] MEDS: ESCITALOPRAM OXALATE 10 MG TAB PO SCH (08:24)
[2021-02-26] MEDS: POTASSIUM CHLORIDE CRTAB 20 MEQ TABCR PO SCH ×2 (08:24→16:45)
[2021-02-26] MEDS: SILVER SULFADIAZINE 1% CR 50 GM JAR EXT SCH ×2 (08:25→21:41)
[2021-02-26 08:41] LABS: Basophils # (auto) 0.04 K/uL (0-0.2); Basophils % (auto) 0.6 %; Eosinophils # (auto) 0.29 K/uL (0-0.5); Eosinophils % (auto) 4.2 %; Hematocrit (blood only) 35.7 % (37-47); Hemoglobin 10.7 g/dL (12.0-16.0); Immature Granulocytes # (auto) 0.22 K/uL (0.00-0.02); Immature Granulocytes % (auto) 3.2 %; Lymphocytes # (auto) 1.46 K/uL (1.2-3.4); Lymphocytes % (auto) 21.2 %; Mean Corpuscular Hemoglobin 29.1 pg (25-34); Mean Platelet Volume 8.9 fL (7.4-10.4); Monocytes # (auto) 0.79 K/uL (0.11-0.59); Monocytes % (auto) 11.4 %; Neutrophils % (auto) 59.4 %; Platelet Count 358 K/uL (130-400); RDW Standard Deviation 67.6 fL (36.4-46.3); Red Blood Count 3.68 M/uL (4.2-5.4)
[2021-02-26 09:13] LABS: BUN Creatinine Ratio 15.7 (10-20); Calcium 9.2 mg/dl (8.5-10.1); Creatinine Clr Calc Pharmacy 70.1 ml/min; Est GFR (African American) 84.9 ml/min; Est GFR (Non-African American) 73.2 ml/min; Magnesium 1.7 mg/dl (1.8-2.4); Potassium 3.5 mmol/L (3.5-5.1)
[2021-02-26] MEDS: APIXABAN 5 MG TABLET PO SCH ×2 (09:33→21:41)
[2021-02-26] MEDS: PANTOprazole 40 MG TAB PO SCH ×2 (09:33→21:41)
--- NOTE | 2021-02-26 12:13 | Hospitalist Progress Note ---
Date of Service February 26, 2021 Assessment & Plan (1) Altered mental state: Significant change in mental status over last [address] head negative. UA - no infection. Ammonia WNL Appears to co-inside with starting digoxin and given level elevated earlier on admission I suspect this is the most likely culprit and will discontinue further doses. Given no EKG abnormalities and already decreased dose with only symptoms of alterded mental state will avoid Digibind currently and let the digoxin wean out of her system. (2) Gastrointestinal hemorrhage, unspecified: This patient is a 76 yo obese female with Afib on Eliquis, HTN, hypokalemia, depression, MCI,gastric bypass, here with GI bleed and mild anemia Hemodynamically stable, Hgb stable, Hemoccult positive Apparently she was transfused 2 units of blood 2 weeks ago and [facility] during her stay for CHF and new onset atrial fibrillation -EGD/colonoscopy 02/25, no acute bleeding seen, gastritis, one colonic polyp removed -Continue Protonix 40 mg PO BID -Restart Eliquis per GI recommendations (3) Anemia: As above, patient was transfused 2 units of PRBCs during previous admission at outside hospital for hemoglobin of 8-9 Hemoglobin here as above is at 10.5 with melena She was started on oral iron supplementation upon discharge to rehab MCV is borderline macrocytic She does have a history of gastric bypass surgery Iron studies normal here, B12 and folate are also normal TSH normal Likely secondary to GI bleeding Follow CBC Continue iron supplementation upon discharge (4) Afib: Rate controlled. This was new in onset during recent hospitalization at [facility] She follows with Dr. Knight of cardiology at [facility] Her rates here are fairly well controlled in the 80s to 100s Her daughter reports that she had low blood pressures on metoprolol and this was discontinued Digoxin level here is elevated - Continue digoxin elevated at 3.1-in hindsight suspect her altered mental status is due to digoxin toxicity -Holding Eliquis as above for GI bleed -Continue reduced dose of digoxin -Echocardiogram I believe was performed at the outside hospital, but I do not have a copy of it here (5) CHF (congestive heart failure): HFpEF- Patient reports that her EF 50%, but I do not have a copy of the echocardiogram report here Mild volume overload with edema in the ankles and feet I do not have record of her weight upon discharge from recent hospitalization, however her daughter reports she was 136 kg before she went into the [facility] 2 weeks ago -Continue Lasix 40 MG PO BID -Daily weights, I's and O's (6) HTN (hypertension): Blood pressure here is normal, unclear if this is a definite diagnosis She is only on Lasix for heart failure and actually her daughter reports that she had low blood pressures when she was on metoprolol with her atrial fibrillation (7) HLD (hyperlipidemia): Continue pravastatin 10 mg PO Qam (8) Hypokalemia: Chronic- she is on Kdur as well as Kphos packets multiple times a day - She feels this is also why she was just put on Fludrocortisone 01.mg - AM cortisol normal -Fludrocortisone here has been held for now (9) Obesity: Chronic obesity, BMI 54.9 - No acute needs, needs weight loss Has a history of gastric bypass surgery but gained a lot of the weight back (10) Gastric bypass status for obesity: As above - Follow labs- supplements and complexes may need added/adjusted (11) MOHAMUD (obstructive sleep apnea): She wears CPAP at night but is unaware of settings - we have no records available - Her daughter will bring in her machine - CPAP at night or while sleeping - ABG to assess for CO2 retention causing continued confusion (12) Dementia: Denied diagnosis from her sister today (13) Dizziness: This has been going on for 3 months per the daughter, where they adjusted her medications Perhaps this was secondary to her newly diagnosed atrial fibrillation She still complains of some mild dizziness here but is improved she reports (14) Depression: Continue Lexapro (15) Abnormal ECG: ECG with ST and T wave abnormality in the anterolateral leads consistent on repeat ECG Troponins serially negative Possible digoxin effect (16) DVT prophylaxis: SCDs, holding home Eliquis as above for GI bleed Disposition-continued stay on med telemetry due to altered mental status and holding further doses of digoxin - suspect some rebound tachycardia as it comes out of her system over the next few days. She will need PT/OT consultations and will likely need placement back at [facility] upon discharge from whence she came Admission and Anticipated Discharge Date Admission Date: February 23, 2021 Subjective Patient was up a lot last night. Sleeping this morning. Reportedly just talking a lot and being disorientated. Generalized confusion remains. Does not remember my name from yesterday. Unaware which hospital she is in but aware she is in hospital. Unable to tell me about her medical diagnoses. Discussed with sister and brother in-law at bedside. Maintain this is a large change in mental status with no sign of dementia previously over the last 2 weeks. Recently started on digoxin and Eliquis last hospitalization. Review of Systems Review of Systems: All systems reviewed & are unremarkable except as noted in HPI & below Physical Exam Constitutional: WD/WN, vitals as above Eyes: + anicteric sclerae Neck: trachea midline, no thyromegaly Respiratory: normal respiratory effort, lungs clear to auscultation Cardiovascular: Rate/Rhythm: regular rate and + irregularly irregular Heart Sounds: no murmur Extremities: + edema (Trace pitting edema of the ankles and feet bilaterally R>L) Chest (Breasts): Chest: normal inspection of chest Gastrointestinal (Abdomen): normal bowel sounds, soft, nontender, no hepatosplenomegaly (Obese) Musculoskeletal: Extremities: no cyanosis and no clubbing Skin: + wound (Right knee small open and left dorsal 2nd/3rd toes w/ old blood blister) and + ecchymosis (Left knee) Neurologic: moves all extremities and awake; no focal motor deficits Psychiatric: Orientation: alert, oriented to person and cooperative; + not oriented to place and + not oriented to time Speech: normal rate/rhythm/volume of speech Affect: euthymic affect Cognition: + recent memory not intact Genitourinary: no CVA tenderness Results & Data Results & Data ([facility]) Vital Signs (Past 12 Hours) Vital Signs Temp Pulse Pulse Resp BP BP Pulse Ox 02/26/21 11:53 36.5 C 89 16 130/74 93 02/26/21 07:55 37.0 C 83 20 117/70 92 02/26/21 03:26 37 C 92 H 16 120/73 90 02/26/21 02:23 94 H PG Care Time/CCT Total # of Minutes Spent Total Time Spent with Patient: Total time spent is greater than 50% in coordin ation of care (as documented) at patient's floor/unit and/or counseling patient: Coding Level of Care Code 74240 Subseq Hosp Care Lvl 2 Diagnoses Altered mental state R41.0 Altered mental status type: delirium Gastrointestinal hemorrhage, unspecified K29.51 Gastritis type: chronic gastritis GI bleed type/associated pathology: gastritis Anemia D64.9 Anemia type: unspecified type Afib I48.20 Atrial fibrillation type: unspecified chronic CHF (congestive heart failure) I50.9 Heart failure chronicity: chronic Heart failure type: unspecified HTN (hypertension) I10 Hypertension type: essential hypertension HLD (hyperlipidemia) E78.5 Hyperlipidemia type: unspecified Hypokalemia E87.6 Obesity E66.01; Z68.43 Body mass index: BMI 50.0-59.9 Obesity classification: adult class 3 (BMI >= 40) Obesity type: due to excess calories Serious obesity comorbidity presence: with serious comorbidity Gastric bypass status for obesity Z98.84 MOHAMUD (obstructive sleep apnea) G47.33 Dementia F03.90 Dementia behavioral disturbance: without behavioral disturbance Dementia type: unspecified type Dizziness R42 Depression F32.9 Abnormal ECG R94.31 DVT prophylaxis Z29.9 (1) Gastrointestinal hemorrhage, unspecified Gastritis type: chronic gastritis GI bleed type/associated pathology: gastritis Qualified Code(s): K29.51 - Unspecified chronic gastritis with bleeding (2) CHF (congestive heart failure) Heart failure chronicity: chronic Heart failure type: unspecified Qualified Code(s): I50.9 - Heart failure, unspecified (3) Anemia Anemia type: unspecified type Qualified Code(s): D64.9 - Anemia, unspecified (4) Afib Atrial fibrillation type: unspecified chronic Qualified Code(s): I48.20 - Chronic atrial fibrillation, unspecified (5) Dementia Dementia behavioral disturbance: without behavioral disturbance Dementia type: unspecified type Qualified Code(s): F03.90 - Unspecified dementia without behavioral disturbance (6) HLD (hyperlipidemia) Hyperlipidemia type: unspecified Qualified Code(s): E78.5 - Hyperlipidemia, unspecified (7) Altered mental state Altered mental status type: delirium Qualified Code(s): R41.0 - Disorientation, unspecified (8) HTN (hypertension) Hypertension type: essential hypertension Qualified Code(s): I10 - Essential (primary) hypertension (9) Obesity Body mass index: BMI 50.0-59.9 Obesity classification: adult class 3 (BMI >= 40) Obesity type: due to excess calories Serious obesity comorbidity presence: with serious comorbidity Qualified Code(s): E66.01 - Morbid (severe) obesity due to excess calories; Z68.43 - Body mass index [BMI] 50.0-59.9, adult
[2021-02-26 12:41] LABS: Appearance Urine Clear (Clear); Bilirubin Urine Negative (Negative); Blood Urine Negative (Negative); Color Urine Yellow; Glucose Urine UA Negative (Negative); Ketones Urine Trace (Negative); Leukocyte Esterase Urine Negative (Negative); Nitrite Urine Negative (Negative); Protein Urine Negative (Negative); Urobilinogen Urine Negative (Negative); pH Urine 6.5 (4.5-7.5)
[2021-02-26] MEDS: DIGOXIN 0.125 MG TAB PO SCH (16:43)
[2021-02-26] MEDS: MAGNESIUM OXIDE 400 MG TAB PO SCH (16:44)
[2021-02-26 18:01] LABS: HCO3 ABG 31 mmol/L (19-24); Oxygen Saturation ABG 91.4 % (90-95); PCO2 ABG 44 mmHg (35-46); PO2 ABG 56 mmHg (80-95); pH ABG 7.47 (7.35-7.45)
[2021-02-26 18:10] LABS: Allen Test Pos (Pos)
[2021-02-26] MEDS ORDERED: DIGOXIN IMMUNE FAB (OVINE) 80 MG in 0.9 % SODIUM CHLORIDE 100 ML IV ONE (18:34)
[2021-02-27 07:55] LABS: Hematocrit (blood only) 37.7 % (37-47); Hemoglobin 11.3 g/dL (12.0-16.0); Mean Corpuscular Hemoglobin 29.1 pg (25-34); Mean Corpuscular Volume 97.2 fL (80-100); Platelet Count 347 K/uL (130-400); RDW Coefficient of Variation 18.9 % (11.5-14.5); RDW Standard Deviation 67.2 fL (36.4-46.3); Red Blood Count 3.88 M/uL (4.2-5.4); White Blood Count 6.57 K/uL (4.8-10.8)
[2021-02-27 08:30] LABS: BUN Creatinine Ratio 15.1 (10-20); Calcium 9.1 mg/dl (8.5-10.1); Creatinine Clr Calc Pharmacy 60.9 ml/min; Est GFR (African American) 71.5 ml/min; Est GFR (Non-African American) 61.7 ml/min; Potassium 3.5 mmol/L (3.5-5.1)
[2021-02-27] MEDS: APIXABAN 5 MG TABLET PO SCH ×2 (08:34→19:28)
[2021-02-27] MEDS: MAGNESIUM OXIDE 400 MG TAB PO SCH ×2 (08:34→16:47)
[2021-02-27] MEDS: POT PHOSPHATE MONOBASIC W/ SOD TAB PO SCH ×3 (08:34→16:47)
[2021-02-27] MEDS: ESCITALOPRAM OXALATE 10 MG TAB PO SCH (08:34)
[2021-02-27] MEDS: POTASSIUM CHLORIDE CRTAB 20 MEQ TABCR PO SCH ×2 (08:34→16:47)
[2021-02-27] MEDS: PANTOprazole 40 MG TAB PO SCH ×2 (08:34→19:28)
[2021-02-27] MEDS: PRAVASTATIN SOD 10 MG TAB PO SCH (08:34)
[2021-02-27] MEDS: SILVER SULFADIAZINE 1% CR 50 GM JAR EXT SCH ×2 (08:35→20:10)
[2021-02-27] MEDS: FUROSEMIDE 40 MG TAB PO SCH ×2 (08:57→16:48)
--- NOTE | 2021-02-27 11:07 | Hospitalist Progress Note ---
Date of Service February 27, 2021 Assessment & Plan (1) Altered mental state: Significant change in mental status over last [address] head negative. UA - no infection. Ammonia WNL Appears to co-inside with starting digoxin and given level elevated earlier on admission I suspect this is the most likely culprit and will discontinue further doses. Continued inpatient stay while digoxin comes out of her system and monitor improved cognition and reboundrapid atrial fibrillation. (2) Gastrointestinal hemorrhage, unspecified: This patient is a 76 yo obese female with Afib on Eliquis, HTN, hypokalemia, depression, MCI,gastric bypass, here with GI bleed and mild anemia Hemodynamically stable, Hgb stable, Hemoccult positive Apparently she was transfused 2 units of blood 2 weeks ago and [facility] during her stay for CHF and new onset atrial fibrillation -EGD/colonoscopy 02/25, no acute bleeding seen, gastritis, one colonic polyp removed -Continue Protonix 40 mg PO BID -Restart Eliquis per GI recommendations (3) Anemia: As above, patient was transfused 2 units of PRBCs during previous admission at outside hospital for hemoglobin of 8-9 Hemoglobin here as above is at 10.5 with melena She was started on oral iron supplementation upon discharge to rehab MCV is borderline macrocytic She does have a history of gastric bypass surgery Iron studies normal here, B12 and folate are also normal TSH normal Likely secondary to GI bleeding Follow CBC Continue iron supplementation upon discharge (4) Afib: Rate controlled. This was new in onset during recent hospitalization at [facility] She follows with Dr. Knight of cardiology at [facility] Her rates here are fairly well controlled in the 80s to 100s Her daughter reports that she had low blood pressures on metoprolol and this was discontinued Digoxin level here is elevated - Continue digoxin elevated at 3.1-in hindsight suspect her altered mental status is due to digoxin toxicity -Holding Eliquis as above for GI bleed -Continue reduced dose of digoxin -Echocardiogram I believe was performed at the outside hospital, but I do not have a copy of it here (5) CHF (congestive heart failure): HFpEF- Patient reports that her EF 50%, but I do not have a copy of the echocardiogram report here Mild volume overload with edema in the ankles and feet I do not have record of her weight upon discharge from recent hospitalization, however her daughter reports she was 136 kg before she went into the [facility] 2 weeks ago -Continue Lasix 40 MG PO BID -Daily weights, I's and O's (6) HTN (hypertension): Blood pressure here is normal, unclear if this is a definite diagnosis She is only on Lasix for heart failure and actually her daughter reports that she had low blood pressures when she was on metoprolol with her atrial fibrillation (7) HLD (hyperlipidemia): Continue pravastatin 10 mg PO Qam (8) Hypokalemia: Chronic- she is on Kdur as well as Kphos packets multiple times a day - She feels this is also why she was just put on Fludrocortisone 01.mg - AM cortisol normal -Fludrocortisone here has been held for now (9) Obesity: Chronic obesity, BMI 54.9 - No acute needs, needs weight loss Has a history of gastric bypass surgery but gained a lot of the weight back (10) Gastric bypass status for obesity: As above - Follow labs- supplements and complexes may need added/adjusted (11) MOHAMUD (obstructive sleep apnea): She wears CPAP at night but is unaware of settings - we have no records available - Her daughter will bring in her machine - CPAP at night or while sleeping - ABG to assess for CO2 retention causing continued confusion (12) Dementia: Denied diagnosis from her sister today (13) Dizziness: This has been going on for 3 months per the daughter, where they adjusted her medications Perhaps this was secondary to her newly diagnosed atrial fibrillation She still complains of some mild dizziness here but is improved she reports (14) Depression: Continue Lexapro (15) Abnormal ECG: ECG with ST and T wave abnormality in the anterolateral leads consistent on repeat ECG Troponins serially negative Possible digoxin effect (16) DVT prophylaxis: SCDs, holding home Eliquis as above for GI bleed Disposition-continued stay on med telemetry due to altered mental status and holding further doses of digoxin - suspect some rebound tachycardia as it comes out of her system over the next few days. She will need PT/OT consultations and will likely need placement back at [facility] upon discharge from whence she came Admission and Anticipated Discharge Date Admission Date: February 23, 2021 Subjective More alert and orientated. Still sleeping somewhat throughout the day but certainly appears less confused. No lateralizing weakness. No slurring of speech. Review of Systems Review of Systems: All systems reviewed & are unremarkable except as noted in HPI & below Physical Exam Constitutional: WD/WN, vitals as above Eyes: + anicteric sclerae Neck: trachea midline, no thyromegaly Respiratory: normal respiratory effort, lungs clear to auscultation Cardiovascular: Rate/Rhythm: regular rate and + irregularly irregular Heart Sounds: no murmur Extremities: + edema (Trace pitting edema of the ankles and feet bilaterally R>L) Chest (Breasts): Chest: normal inspection of chest Gastrointestinal (Abdomen): normal bowel sounds, soft, nontender, no hepatosplenomegaly (Obese) Musculoskeletal: Extremities: no cyanosis and no clubbing Skin: + wound (Right knee small open and left dorsal 2nd/3rd toes w/ old blood blister) and + ecchymosis (Left knee) Neurologic: moves all extremities and awake; no focal motor deficits Psychiatric: Orientation: alert, oriented to person, oriented to place and cooperative; + not oriented to time Speech: normal rate/rhythm/volume of speech Affect: euthymic affect Cognition: + recent memory not intact (Improved from previous days) Genitourinary: no CVA tenderness Results & Data Results & [facility] ([facility]) Vital Signs (Past 12 Hours) Vital Signs Temp Pulse Pulse Resp BP Pulse Ox 02/27/21 10:54 36.7 C 02/27/21 07:38 82 02/27/21 07:04 36.5 C 77 20 132/77 90 02/27/21 04:00 36.6 C 81 18 149/78 H 98 PG Care Time/CCT Total # of Minutes Spent Total Time Spent with Patient: Total time spent is greater than 50% in coordinat ion of care (as documented) at patient's floor/unit and/or counseling patient: Coding Level of Care Code 81720 Subseq Hosp Care Lvl 2 Diagnoses Altered mental state R41.0 Altered mental status type: delirium Gastrointestinal hemorrhage, unspecified K29.51 GI bleed type/associated pathology: gastritis Gastritis type: chronic gastritis Anemia D64.9 Anemia type: unspecified type Afib I48.20 Atrial fibrillation type: unspecified chronic CHF (congestive heart failure) I50.9 Heart failure chronicity: chronic Heart failure type: unspecified HTN (hypertension) I10 Hypertension type: essential hypertension HLD (hyperlipidemia) E78.5 Hyperlipidemia type: unspecified Hypokalemia E87.6 Obesity E66.01; Z68.43 Body mass index: BMI 50.0-59.9 Obesity classification: adult class 3 (BMI >= 40) Obesity type: due to excess calories Serious obesity comorbidity presence: with serious comorbidity Gastric bypass status for obesity Z98.84 MOHAMUD (obstructive sleep apnea) G47.33 Dementia F03.90 Dementia behavioral disturbance: without behavioral disturbance Dementia type: unspecified type Dizziness R42 Depression F32.9 Abnormal ECG R94.31 DVT prophylaxis Z29.9 (1) Gastrointestinal hemorrhage, unspecified GI bleed type/associated pathology: gastritis Gastritis type: chronic gastritis Qualified Code(s): K29.51 - Unspecified chronic gastritis with bleeding (2) CHF (congestive heart failure) Heart failure chronicity: chronic Heart failure type: unspecified Qualified Code(s): I50.9 - Heart failure, unspecified (3) Anemia Anemia type: unspecified type Qualified Code(s): D64.9 - Anemia, unspecified (4) Afib Atrial fibrillation type: unspecified chronic Qualified Code(s): I48.20 - Chronic atrial fibrillation, unspecified (5) Dementia Dementia behavioral disturbance: without behavioral disturbance Dementia type: unspecified type Qualified Code(s): F03.90 - Unspecified dementia without behavioral disturbance (6) HLD (hyperlipidemia) Hyperlipidemia type: unspecified Qualified Code(s): E78.5 - Hyperlipidemia, unspecified (7) Altered mental state Altered mental status type: delirium Qualified Code(s): R41.0 - Disorientation, unspecified (8) HTN (hypertension) Hypertension type: essential hypertension Qualified Code(s): I10 - Essential (primary) hypertension (9) Obesity Body mass index: BMI 50.0-59.9 Obesity classification: adult class 3 (BMI >= 40) Obesity type: due to excess calories Serious obesity comorbidity presence: with serious comorbidity Qualified Code(s): E66.01 - Morbid (severe) obesity due to excess calories; Z68.43 - Body mass index [BMI] 50.0-59.9, adult
[2021-02-28] MEDS: PANTOprazole 40 MG TAB PO SCH ×2 (08:58→20:45)
[2021-02-28] MEDS: FUROSEMIDE 40 MG TAB PO SCH (08:58)
[2021-02-28] MEDS: APIXABAN 5 MG TABLET PO SCH ×2 (08:58→20:45)
[2021-02-28] MEDS: POT PHOSPHATE MONOBASIC W/ SOD TAB PO SCH ×3 (08:59→17:12)
[2021-02-28] MEDS: ESCITALOPRAM OXALATE 10 MG TAB PO SCH (08:59)
[2021-02-28] MEDS: POTASSIUM CHLORIDE CRTAB 20 MEQ TABCR PO SCH ×2 (08:59→17:12)
[2021-02-28] MEDS: MAGNESIUM OXIDE 400 MG TAB PO SCH ×2 (08:59→17:12)
[2021-02-28] MEDS: SILVER SULFADIAZINE 1% CR 50 GM JAR EXT SCH ×2 (08:59→20:45)
[2021-02-28] MEDS: PRAVASTATIN SOD 10 MG TAB PO SCH (08:59)
[2021-02-28] MEDS: METOPROLOL TARTRATE 25 MG TAB PO SCH ×3 (10:48→22:38)
--- NOTE | 2021-02-28 10:57 | XRay Report ---
XR chest 1V portable CLINICAL HISTORY: hypoxia COMPARISON STUDY: No previous studies for comparison. FINDINGS: Patient is rotated. There is no pneumothorax or pleural effusion. Apparent left basilar opa city is probably artifactual. Note is made of cardiomegaly without evidence for pulmonary edema. Righ t hilar prominence is noted. This is likely due to pulmonary vessels. IMPRESSION: 1. Apparent left basilar opacity which is likely artifactual. Follow-up PA and lateral chest radiogra phs could be obtained. 2. Cardiomegaly without evidence for pulmonary edema. ACT 112: Negative or not required by law. Electronically signed by: Rodger Naqvi M.D. 02/28/2021 10:55 AM
[2021-02-28 11:06] LABS: BUN Creatinine Ratio 12.8 (10-20); Calcium 8.5 mg/dl (8.5-10.1); Creatinine Clr Calc Pharmacy 46.8 ml/min; Est GFR (African American) 54.5 ml/min; Magnesium 1.3 mg/dl (1.8-2.4); Potassium 3.5 mmol/L (3.5-5.1)
--- NOTE | 2021-02-28 13:35 | XRay Report ---
XR chest 2V PA/lateral HISTORY: hypoxia, left basal opacity COMPARISON: Chest 02/28/2021. FINDINGS: No pneumothorax. Mild interstitial thickening. This suggests mild congestive change. The he art is enlarged. No pleural effusions. Patchy bibasilar densities, left greater than right. The small right lung base density is new from the prior study. IMPRESSION: 1. Cardiomegaly with mild congestive change. 2. There are patchy bibasilar densities, left greater than right. This could represent atelectasis or pneumonia. ACT 112: Negative or not required by law. Electronically signed by: Sae Pennington M.D. 02/28/2021 1:33 PM
[2021-03-01] MEDS: METOPROLOL TARTRATE 25 MG TAB PO SCH ×4 (04:05→22:19)
[2021-03-01 07:43] LABS: Base Excess VBG 8.5 mEq/L; Oxygen Saturation VBG 65.4 %; pH VBG 7.38 (7.36-7.41)
[2021-03-01 08:14] LABS: Anisocytosis Present; Basophils # (auto) 0.04 K/uL (0-0.2); Basophils % (auto) 0.6 %; Eosinophils # (auto) 0.26 K/uL (0-0.5); Eosinophils % (auto) 3.9 %; Hematocrit (blood only) 39.4 % (37-47); Hemoglobin 11.6 g/dL (12.0-16.0); Hypochromasia Present; Immature Granulocytes # (auto) 0.12 K/uL (0.00-0.02); Immature Granulocytes % (auto) 1.8 %; Lymphocytes # (auto) 1.22 K/uL (1.2-3.4); Lymphocytes % (auto) 18.3 %; Mean Corpuscular Hemoglobin 28.9 pg (25-34); Mean Corpuscular Hgb Conc 29.4 g/dL (32-36); Mean Corpuscular Volume 98.3 fL (80-100); Mean Platelet Volume 9.3 fL (7.4-10.4); Monocytes # (auto) 1.13 K/uL (0.11-0.59); Neutrophils # (auto) 3.89 K/uL (1.4-6.5); Neutrophils % (auto) 58.4 %; Platelet Count 362 K/uL (130-400); RDW Coefficient of Variation 18.3 % (11.5-14.5); RDW Standard Deviation 67.5 fL (36.4-46.3); Red Blood Count 4.01 M/uL (4.2-5.4); White Blood Count 6.66 K/uL (4.8-10.8)
[2021-03-01 08:16] LABS: BUN Creatinine Ratio 15.5 (10-20); Calcium 8.5 mg/dl (8.5-10.1); Creatinine Clr Calc Pharmacy 41.5 ml/min; Est GFR (African American) 46.5 ml/min; Est GFR (Non-African American) 40.1 ml/min
[2021-03-01] MEDS: MAGNESIUM OXIDE 400 MG TAB PO SCH ×2 (08:23→16:34)
[2021-03-01] MEDS: PRAVASTATIN SOD 10 MG TAB PO SCH (08:23)
[2021-03-01] MEDS: POTASSIUM CHLORIDE CRTAB 20 MEQ TABCR PO SCH ×2 (08:23→16:34)
[2021-03-01] MEDS: APIXABAN 5 MG TABLET PO SCH ×2 (08:23→22:20)
[2021-03-01] MEDS: ESCITALOPRAM OXALATE 10 MG TAB PO SCH (08:23)
[2021-03-01] MEDS: SILVER SULFADIAZINE 1% CR 50 GM JAR EXT SCH ×2 (08:23→22:20)
[2021-03-01] MEDS: PANTOprazole 40 MG TAB PO SCH ×2 (08:23→22:19)
[2021-03-01] MEDS: POT PHOSPHATE MONOBASIC W/ SOD TAB PO SCH ×3 (08:23→16:34)
[2021-03-01] MEDS ORDERED: FUROSEMIDE 40 MG TAB PO SCH (09:00)
--- NOTE | 2021-03-01 09:04 | Hospitalist Progress Note ---
Date of Service February 28, 2021 Assessment & Plan (1) Altered mental state: Significant change in mental status over last [address] head negative. UA - no infection. Ammonia WNL Appears to co-inside with starting digoxin and given level elevated earlier on admission I suspect this is the most likely culprit and will discontinue further doses. Continued inpatient stay while digoxin comes out of her system as now with rebound RVR. (2) Hypoxia: CXR to assess for pulmonary edema (3) Metabolic alkalosis: Suspect due to overdiuresis, will change lasix to 40mg PO daily from BID May be contributing towards altered mental state (4) Gastrointestinal hemorrhage, unspecified: This patient is a 76 yo obese female with Afib on Eliquis, HTN, hypokalemia, depression, MCI,gastric bypass, here with GI bleed and mild anemia Hemodynamically stable, Hgb stable, Hemoccult positive Apparently she was transfused 2 units of blood 2 weeks ago and [facility] during her stay for CHF and new onset atrial fibrillation -EGD/colonoscopy 02/25, no acute bleeding seen, gastritis, one colonic polyp removed -Continue Protonix 40 mg PO BID -Restart Eliquis per GI recommendations (5) Anemia: As above, patient was transfused 2 units of PRBCs during previous admission at outside hospital for hemoglobin of 8-9 Hemoglobin here as above is at 10.5 with melena She was started on oral iron supplementation upon discharge to rehab MCV is borderline macrocytic She does have a history of gastric bypass surgery Iron studies normal here, B12 and folate are also normal TSH normal Likely secondary to GI bleeding Follow CBC Continue iron supplementation upon discharge (6) Afib: Rate controlled. This was new in onset during recent hospitalization at [facility] She follows with Dr. Knight of cardiology at [facility] Now back with RVR after stopping digoxin. Restart metoprolol 25mg PO QID with hold parameters Restarted on Eliquis, will monitor for further blood loss (7) CHF (congestive heart failure): HFpEF- Patient reports that her EF 50%, but I do not have a copy of the echocardiogram report here Mild volume overload with edema in the ankles and feet I do not have record of her weight upon discharge from recent hospitalization, however her daughter reports she was 136 kg before she went into the [facility] 2 weeks ago -Continue Lasix 40 MG PO BID -Daily weights, I's and O's (8) HTN (hypertension): Blood pressure here is normal, unclear if this is a definite diagnosis She is only on Lasix for heart failure and actually her daughter reports that she had low blood pressures when she was on metoprolol with her atrial fibrillation (9) HLD (hyperlipidemia): Continue pravastatin 10 mg PO Qam (10) Hypokalemia: Chronic- she is on Kdur as well as Kphos packets multiple times a day - She feels this is also why she was just put on Fludrocortisone 01.mg - AM cortisol normal -Fludrocortisone here has been held for now (11) Obesity: Chronic obesity, BMI 54.9 - No acute needs, needs weight loss Has a history of gastric bypass surgery but gained a lot of the weight back (12) Gastric bypass status for obesity: As above - Follow labs- supplements and complexes may need added/adjusted (13) MOHAMUD (obstructive sleep apnea): She wears CPAP at night but is unaware of settings - we have no records available - Her daughter will bring in her machine - CPAP at night or while sleeping - ABG to assess for CO2 retention causing continued confusion (14) Dementia: Denied diagnosis from her sister today (15) Dizziness: This has been going on for 3 months per the daughter, where they adjusted her medications Perhaps this was secondary to her newly diagnosed atrial fibrillation She still complains of some mild dizziness here but is improved she reports (16) Depression: Continue Lexapro (17) Abnormal ECG: ECG with ST and T wave abnormality in the anterolateral leads consistent on repeat ECG Troponins serially negative Possible digoxin effect (18) DVT prophylaxis: Eliquis as above Disposition-continued stay on med telemetry due to RVR Admission and Anticipated Discharge Date Admission Date: February 23, 2021 Subjective Appears similar to yesterday. Certainly better than a few days previously. Still sleeping somewhat throughout the day but certainly appears less confused. No lateralizing weakness. No slurring of speech. Dry mucus membranes. Review of Systems Review of Systems: All systems reviewed & are unremarkable except as noted in HPI & below Physical Exam Constitutional: WD/WN, vitals as above Eyes: + anicteric sclerae Neck: trachea midline, no thyromegaly Respiratory: normal respiratory effort, lungs clear to auscultation Cardiovascular: Rate/Rhythm: regular rate and + irregularly irregular Heart Sounds: no murmur Extremities: + edema (Trace pitting edema of the ankles and feet bilaterally R>L) Chest (Breasts): Chest: normal inspection of chest Gastrointestinal (Abdomen): normal bowel sounds, soft, nontender, no hepatosplenomegaly (Obese) Musculoskeletal: Extremities: no cyanosis and no clubbing Skin: + wound (Right knee small open and left dorsal 2nd/3rd toes w/ old blood blister) and + ecchymosis (Left knee) Neurologic: moves all extremities and awake; no focal motor deficits Psychiatric: Orientation: alert, oriented to person, oriented to place, oriented to time and cooperative Speech: normal rate/rhythm/volume of speech Affect: euthymic affect Cognition: + recent memory not intact (Improved from previous days) Genitourinary: no CVA tenderness Results & Data Results & Data ([facility]) Vital Signs (Past 12 Hours) Vital Signs Temp Pulse Pulse Pulse Resp BP Pulse Ox 03/01/21 07:36 72 03/01/21 07:16 36.3 C L 79 18 102/58 L 91 03/01/21 03:00 36.8 C 87 20 106/68 93 02/28/21 23:04 82 02/28/21 23:00 36.8 C 78 20 101/62 94 PG Care Time/CCT Total # of Minutes Spent Total Time Spent with Patient: Total time spent is greater than 50% in coordination of care (as documented) at patient's floor/unit and/or counseling patient: Coding Level of Care Code 02720 Subseq Hosp Care Lvl 3 Diagnoses Altered mental state R41.0 Altered mental status type: delirium Hypoxia R09.02 Metabolic alkalosis E87.3 Gastrointestinal hemorrhage, unspecified K29.51 GI bleed type/associated pathology: gastritis Gastritis type: chronic gastritis Anemia D64.9 Anemia type: unspecified type Afib I48.20 Atrial fibrillation type: unspecified chronic CHF (congestive heart failure) I50.9 Heart failure chronicity: chronic Heart failure type: unspecified HTN (hypertension) I10 Hypertension type: essential hypertension HLD (hyperlipidemia) E78.5 Hyperlipidemia type: unspecified Hypokalemia E87.6 Obesity E66.01; Z68.43 Body mass index: BMI 50.0-59.9 Obesity classification: adult class 3 (BMI >= 40) Obesity type: due to excess calories Serious obesity comorbidity presence: with serious comorbidity Gastric bypass status for obesity Z98.84 MOHAMUD (obstructive sleep apnea) G47.33 Dementia F03.90 Dementia behavioral disturbance: without behavioral disturbance Dementia type: unspecified type Dizziness R42 Depression F32.9 Abnormal ECG R94.31 DVT prophylaxis Z29.9 (1) Gastrointestinal hemorrhage, unspecified GI bleed type/associated pathology: gastritis Gastritis type: chronic gastritis Qualified Code(s): K29.51 - Unspecified chronic gastritis with bleeding (2) CHF (congestive heart failure) Heart failure chronicity: chronic Heart failure type: unspecified Qualified Code(s): I50.9 - Heart failure, unspecified (3) Anemia Anemia type: unspecified type Qualified Code(s): D64.9 - Anemia, unspecified (4) Afib Atrial fibrillation type: unspecified chronic Qualified Code(s): I48.20 - Chronic atrial fibrillation, unspecified (5) Dementia Dementia behavioral disturbance: without behavioral disturbance Dementia type: unspecified type Qualified Code(s): F03.90 - Unspecified dementia without behavioral disturbance (6) HLD (hyperlipidemia) Hyperlipidemia type: unspecified Qualified Code(s): E78.5 - Hyperlipidemia, unspecified (7) Altered mental state Altered mental status type: delirium Qualified Code(s): R41.0 - Disorientation, unspecified (8) HTN (hypertension) Hypertension type: essential hypertension Qualified Code(s): I10 - Essential (primary) hypertension (9) Obesity Body mass index: BMI 50.0-59.9 Obesity classification: adult class 3 (BMI >= 40) Obesity type: due to excess calories Serious obesity comorbidity presence: with serious comorbidity Qualified Code(s): E66.01 - Morbid (severe) obesity due to excess calories; Z68.43 - Body mass index [BMI] 50.0-59.9, adult
--- NOTE | 2021-03-01 20:16 | Hospitalist Progress Note ---
Date of Service March 01, 2021 Assessment & Plan (1) Altered mental state: Significant change in mental status over last 2 weeks, suspect secondary to digoxin toxicity. Now improving as digoxin comes out of her system. CT head negative. UA - no infection. Ammonia WNL (2) Hypoxia: Chest x-ray with atelectasis. VBG this morning with elevated CO2. Suspect secondary to obesity hypoventilation and noncompliance with CPAP at night. Will trial BiPAP 8/4 overnight and encourage compliance. Incentive spirometry throughout the day (3) Metabolic alkalosis: Suspect due to overdiuresis Given increasing BUN and creatinine on a.m. labs further Lasix has been discontinued however suspect she will need 40 mg p.o. daily on discharge. May be contributing towards altered mental state (4) Afib: Rate controlled. This was new in onset during recent hospitalization at [facility] She follows with Dr. Knight of cardiology at [facility] Increased rate with holding digoxin. Rate down to 40s at times with QID dosing of metoprolol tartrate, switch to BID dosing with hold parameter Orthostatics tomorrow to make sure this doesn't make her too hypotensive. Restarted on Eliquis, will monitor for further blood loss (5) Gastrointestinal hemorrhage, unspecified: This patient is a 76 yo obese female with Afib on Eliquis, HTN, hypokalemia, depression, MCI,gastric bypass, here with GI bleed and mild anemia Hemodynamically stable, Hgb stable, Hemoccult positive Apparently she was transfused 2 units of blood 2 weeks ago and [facility] during her stay for CHF and new onset atrial fibrillation -EGD/colonoscopy 02/25, no acute bleeding seen, gastritis, one colonic polyp removed -Continue Protonix 40 mg PO BID -Restarted Eliquis per GI recommendations (6) Anemia: As above, patient was transfused 2 units of PRBCs during previous admission at outside hospital for hemoglobin of 8-9 Hemoglobin here as above is at 10.5 with melena She was started on oral iron supplementation upon discharge to rehab MCV is borderline macrocytic She does have a history of gastric bypass surgery Iron studies normal here, B12 and folate are also normal TSH normal Likely secondary to GI bleeding Follow CBC Continue iron supplementation upon discharge (7) CHF (congestive heart failure): HFpEF- Patient reports that her EF 50% Mild volume overload with edema in the ankles and feet on admission I do not have record of her weight upon discharge from recent hospitalization, however her daughter reports she was 136 kg before she went into the [facility] 2 weeks ago -Lasix as above (currently on hold) -Daily weights, I's and O's - lost approx 10kg since admission suggesting acute HF on admission TTE (8) HTN (hypertension): Blood pressure here is normal, unclear if this is a definite diagnosis She is only on Lasix for heart failure and actually her daughter reports that she had low blood pressures when she was on metoprolol with her atrial fibrillation Monitor orthostatics in AM as we restart metoprolol (9) HLD (hyperlipidemia): Continue pravastatin 10 mg PO Qam (10) Hypokalemia: Chronic- she is on Kdur as well as Kphos packets multiple times a day - She feels this is also why she was just put on Fludrocortisone 01.mg - AM cortisol normal -Fludrocortisone here has been held for now (11) Obesity: Chronic obesity, BMI 54.9 - No acute needs, needs weight loss Has a history of gastric bypass surgery but gained a lot of the weight back (12) Gastric bypass status for obesity: As above - Follow labs- supplements and complexes may need added/adjusted (13) MOHAMUD (obstructive sleep apnea): She wears CPAP at night but is unaware of settings - we have no records available - Her daughter will bring in her machine - CPAP at night or while sleeping - No CO2 retention on ABG during the day time but morning VBG suggest retention. Will start on BiPAP at night 04/24 (14) Dementia: Denied diagnosis from her sister today (15) Dizziness: This has been going on for 3 months per the daughter, where they adjusted her medications Perhaps this was secondary to her newly diagnosed atrial fibrillation She still complains of some mild dizziness here but is improved she reports (16) Depression: Continue Lexapro (17) Abnormal ECG: ECG with ST and T wave abnormality in the anterolateral leads consistent on repeat ECG Troponins serially negative Possible digoxin effect (18) DVT prophylaxis: Eliquis as above Disposition-continued stay on med telemetry due to RVR Admission and Anticipated Discharge Date Admission Date: February 23, 2021 Subjective Cognition appears to be improving daily. Still sleeping somewhat throughout the day but certainly appears less confused. No lateralizing weakness. No slurring of speech. Dry mucus membranes. Discussed and updated her daughter and son over the phone and at bedside. Review of Systems Review of Systems: All systems reviewed & are unremarkable except as noted in HPI & below Physical Exam Constitutional: WD/WN, vitals as above Eyes: + anicteric sclerae Neck: trachea midline, no thyromegaly Respiratory: normal respiratory effort, lungs clear to auscultation Cardiovascular: Rate/Rhythm: regular rate and + irregularly irregular Heart Sounds: no murmur Extremities: + edema (Trace pitting edema of the ankles and feet bilaterally R>L) Chest (Breasts): Chest: normal inspection of chest Gastrointestinal (Abdomen): normal bowel sounds, soft, nontender, no hepatosplenomegaly (Obese) Musculoskeletal: Extremities: no cyanosis and no clubbing Skin: + wound (Right knee small open and left dorsal 2nd/3rd toes w/ old blood blister) Neurologic: moves all extremities and awake; no focal motor deficits Psychiatric: Orientation: alert, oriented to person, oriented to place and oriented to time Speech: normal rate/rhythm/volume of speech Affect: euthymic affect Cognition: recent memory grossly intact (Improved from previous days) Results & Data Results & Data ([facility]) Vital Signs (Past 12 Hours) Vital Signs Temp Pulse Pulse Resp BP BP Pulse Ox 03/01/21 19:42 35.8 C L 74 20 102/57 L 99 03/01/21 19:33 67 24 100 03/01/21 15:45 36.3 C L 54 L 16 103/52 L 100 03/01/21 15:14 48 L 03/01/21 12:00 36.4 C L 96 H 20 98/58 L 94 PG Care Time/CCT Total # of Minutes Spent Total Time Spent with Patient: Total time spent is greater than 50% in coordination of care (as documented) at patient's floor/unit and/or counseling patient: Coding Level of Care Code 42788 Subseq Hosp Care Lvl 2 Diagnoses Altered mental state R41.0 Altered mental status type: delirium Hypoxia R09.02 Metabolic alkalosis E87.3 Afib I48.20 Atrial fibrillation type: unspecified chronic Gastrointestinal hemorrhage, unspecified K29.51 GI bleed type/associated pathology: gastritis Gastritis type: chronic gastritis Anemia D64.9 Anemia type: unspecified type CHF (congestive heart failure) I50.9 Heart failure type: unspecified Heart failure chronicity: chronic HTN (hypertension) I10 Hypertension type: essential hypertension HLD (hyperlipidemia) E78.5 Hyperlipidemia type: unspecified Hypokalemia E87.6 Obesity E66.01; Z68.43 Obesity type: due to excess calories Obesity classification: adult class 3 (BMI >= 40) Serious obesity comorbidity presence: with serious comorbidity Body mass index: BMI 50.0-59.9 Gastric bypass status for obesity Z98.84 MOHAMUD (obstructive sleep apnea) G47.33 Dementia F03.90 Dementia type: unspecified type Dementia behavioral disturbance: without behavioral disturbance Dizziness R42 Depression F32.9 Abnormal ECG R94.31 DVT prophylaxis Z29.9 (1) Altered mental state Altered mental status type: delirium Qualified Code(s): R41.0 - Disorientation, unspecified (2) Gastrointestinal hemorrhage, unspecified GI bleed type/associated pathology: gastritis Gastritis type: chronic gastritis Qualified Code(s): K29.51 - Unspecified chronic gastritis with bleeding (3) Anemia Anemia type: unspecified type Qualified Code(s): D64.9 - Anemia, unspecified (4) Afib Atrial fibrillation type: unspecified chronic Qualified Code(s): I48.20 - Chronic atrial fibrillation, unspecified (5) CHF (congestive heart failure) Heart failure type: unspecified Heart failure chronicity: chronic Qualified Code(s): I50.9 - Heart failure, unspecified (6) HTN (hypertension) Hypertension type: essential hypertension Qualified Code(s): I10 - Essential (primary) hypertension (7) HLD (hyperlipidemia) Hyperlipidemia type: unspecified Qualified Code(s): E78.5 - Hyperlipidemia, unspecified (8) Obesity Obesity type: due to excess calories Obesity classification: adult class 3 (BMI >= 40) Serious obesity comorbidity presence: with serious comorbidity Body mass index: BMI 50.0-59.9 Qualified Code(s): E66.01 - Morbid (severe) obesity due to excess calories; Z68.43 - Body mass index [BMI] 50.0-59.9, adult (9) Dementia Dementia type: unspecified type Dementia behavioral disturbance: without behavioral disturbance Qualified Code(s): F03.90 - Unspecified dementia without behavioral disturbance
[2021-03-02] MEDS: POT PHOSPHATE MONOBASIC W/ SOD TAB PO SCH ×3 (07:26→17:19)
[2021-03-02] MEDS: METOPROLOL TARTRATE 25 MG TAB PO SCH ×2 (07:27→20:47)
[2021-03-02] MEDS: MAGNESIUM OXIDE 400 MG TAB PO SCH ×2 (07:27→17:19)
[2021-03-02] MEDS: ESCITALOPRAM OXALATE 10 MG TAB PO SCH (07:27)
[2021-03-02] MEDS: SILVER SULFADIAZINE 1% CR 50 GM JAR EXT SCH ×2 (07:28→20:48)
[2021-03-02] MEDS: APIXABAN 5 MG TABLET PO SCH ×2 (07:28→20:47)
[2021-03-02] MEDS: PRAVASTATIN SOD 10 MG TAB PO SCH (07:28)
[2021-03-02] MEDS: POTASSIUM CHLORIDE CRTAB 20 MEQ TABCR PO SCH (07:28)
[2021-03-02] MEDS: PANTOprazole 40 MG TAB PO SCH ×2 (07:29→20:47)
[2021-03-02 07:41] LABS: BUN Creatinine Ratio 16.8 (10-20); Calcium 7.8 mg/dl (8.5-10.1); Creatinine Clr Calc Pharmacy 43.3 ml/min; Est GFR (African American) 49.2 ml/min; Est GFR (Non-African American) 42.5 ml/min
[2021-03-02] MEDS: MICONAZOLE NITRATE POWDER 43 GM EXT PRN ×2 (10:45→20:46)
--- NOTE | 2021-03-02 11:23 | XRay Report ---
XR chest 1V portable CLINICAL HISTORY: increased confusion COMPARISON STUDY: 02/28/2021 FINDINGS: The heart is enlarged. There is radiographic evidence of mild congestive failure/fluid over load. There is no lobar consolidation. Increased basilar markings while nonspecific statistically ate lectatic[. There are no large pleural effusions IMPRESSION: Cardiomegaly and radiographic evidence of mild congestive failure/fluid overload. ACT 112: Negative or not required by law. Electronically signed by: Kirt Willett M.D. 03/02/2021 11:22 AM
[2021-03-02 14:30] LABS: Appearance Urine Clear (Clear); Bacteria Urine Automated Negative (Negative); Bilirubin Urine Negative (Negative); Blood Urine Negative (Negative); Color Urine Yellow; Glucose Urine UA Negative (Negative); Ketones Urine Trace (Negative); Leukocyte Esterase Urine 2+ (Negative); Nitrite Urine Negative (Negative); Protein Urine Negative (Negative); Specific Gravity Urine 1.014 (1.000-1.030); Urobilinogen Urine Negative (Negative); WBC Urine Automated >30 /hpf (0-5); pH Urine 7.5 (4.5-7.5)
[2021-03-02 14:46] LABS: RBC Urine Automated 0-4 /hpf (0-4)
--- NOTE | 2021-03-02 15:20 | XCELERA ---
[id number]
[2021-03-02 17:30] LABS: Appearance Urine Clear (Clear); Bacteria Urine Automated Negative (Negative); Bilirubin Urine Negative (Negative); Blood Urine Negative (Negative); Color Urine Dark Yellow; Glucose Urine UA Negative (Negative); Ketones Urine Negative (Negative); Leukocyte Esterase Urine 2+ (Negative); Nitrite Urine Negative (Negative); Protein Urine Negative (Negative); Specific Gravity Urine 1.014 (1.000-1.030); Urobilinogen Urine Negative (Negative); WBC Urine Automated >30 /hpf (0-5)
[2021-03-02 18:22] LABS: RBC Urine Automated 0-4 /hpf (0-4)
--- NOTE | 2021-03-02 18:36 | Hospitalist Progress Note ---
Date of Service March 02, 2021 Assessment & Plan (1) Altered mental state: Significant change in mental status over last 2 weeks, suspect secondary to digoxin toxicity. Worse today. Repeat UA and CXR - if nothing significant will consider Brain MRI although most likely secondary to poor sleep last night as main thing we changed was the BiPAP at night. CT head negative. UA - no infection. Ammonia WNL (2) Hypoxia: Chest x-ray with atelectasis. Suspect secondary to obesity hypoventilation and noncompliance with CPAP at night. May use own CPAP at night as intolerant to BiPAP Incentive spirometry throughout the day (3) Metabolic alkalosis: Suspect due to overdiuresis Given increasing BUN and creatinine on a.m. labs further Lasix has been discontinued however suspect she will need 40 mg p.o. daily on discharge. May be contributing towards altered mental state (4) Afib: Rate controlled. This was new in onset during recent hospitalization at [facility] She follows with Dr. Knight of cardiology at [facility] [place] Increased rate with holding digoxin. Rate down to 40s at times with QID dosing of metoprolol tartrate, switch to BID dosing with hold parameter Restarted on Eliquis, will monitor for further blood loss (5) Gastrointestinal hemorrhage, unspecified: This patient is a 76 yo obese female with Afib on Eliquis, HTN, hypokalemia, depression, MCI,gastric bypass, here with GI bleed and mild anemia Hemodynamically stable, Hgb stable, Hemoccult positive Apparently she was transfused 2 units of blood 2 weeks ago and [facility] during her stay for CHF and new onset atrial fibrillation -EGD/colonoscopy 02/25, no acute bleeding seen, gastritis, one colonic polyp removed -Continue Protonix 40 mg PO BID -Restarted Eliquis per GI recommendations (6) Anemia: As above, patient was transfused 2 units of PRBCs during previous admission at outside hospital for hemoglobin of 8-9 Hemoglobin here as above is at 10.5 with melena She was started on oral iron supplementation upon discharge to rehab MCV is borderline macrocytic She does have a history of gastric bypass surgery Iron studies normal here, B12 and folate are also normal TSH normal Likely secondary to GI bleeding Follow CBC Continue iron supplementation upon discharge (7) CHF (congestive heart failure): HFpEF- Patient reports that her EF 50% Mild volume overload with edema in the ankles and feet on admission I do not have record of her weight upon discharge from recent hospitalization, however her daughter reports she was 136 kg before she went into the [facility] 2 weeks ago -Lasix as above (currently on hold) -Daily weights, I's and O's TTE- pending (8) HTN (hypertension): Blood pressure here is normal, unclear if this is a definite diagnosis She is only on Lasix for heart failure and actually her daughter reports that she had low blood pressures when she was on metoprolol with her atrial fibrillation Monitor orthostatics as we restart metoprolol (9) HLD (hyperlipidemia): Continue pravastatin 10 mg PO Qam (10) Hypokalemia: Chronic- she is on Kdur as well as Kphos packets multiple times a day - She feels this is also why she was just put on Fludrocortisone 01.mg - AM cortisol normal -Fludrocortisone here has been held for now (11) Obesity: Chronic obesity, BMI 54.9 - No acute needs, needs weight loss Has a history of gastric bypass surgery but gained a lot of the weight back (12) Gastric bypass status for obesity: As above - Follow labs- supplements and complexes may need added/adjusted (13) MOHAMUD (obstructive sleep apnea): She wears CPAP 4cmH2O - we have no records available - CPAP at night or while sleeping (14) Dementia: Denied diagnosis from her sister today (15) Dizziness: This has been going on for 3 months per the daughter, where they adjusted her medications Perhaps this was secondary to her newly diagnosed atrial fibrillation She still complains of some mild dizziness here but is improved she reports (16) Depression: Continue Lexapro (17) Abnormal ECG: ECG with ST and T wave abnormality in the anterolateral leads consistent on repeat ECG Troponins serially negative Possible digoxin effect (18) DVT prophylaxis: Eliquis as above Disposition-continued stay on med telemetry due to a. fib monitoring and AMS Admission and Anticipated Discharge Date Admission Date: February 23, 2021 Subjective Significantly increased confusion today. Mainly confused about where she is. We did start her on BiPAP last night and possibly had worse sleeping as she did not tolerate the mask well. She confabulates well but is unable to tell me why she came to hospital in the first place which she has previously been able to do the last few days. No new weakness or change in sensation in extremities. She refers to the hospital as hotel and any cracks or self after appointments out. She does not appear to have any word finding difficulty however. Possible mild slurred speech from day before. No change in vision, hearing. No facial weakness. No fevers, chills, dysuria, cough, shortness of breath. No change in medication to account for altered mental status although reduced metoprolol to twice a day and furosemide discontinued due to worsening renal function but appears to be better today. No benzodiazepines or opiates given. Discussed with neelima Belle over the phone and explained why this is unlikely a stroke. She has no focal neuropathy and waxing and waning symptoms would be much more likely delirium due to infection or metabolic encephalopathy. If UA and chest x-ray unremarkable will get MRI brain. Review of Systems Review of Systems: All systems reviewed & are unremarkable except as noted in HPI & below (she does feel she is increasingly confused today) Physical Exam Constitutional: WD/WN, vitals as above Eyes: PERRL, conjunctivae normal, anicteric sclerae Neck: trachea midline, no thyromegaly Respiratory: normal respiratory effort, lungs clear to auscultation Cardiovascular: Rate/Rhythm: regular rate and + irregularly irregular Heart Sounds: no murmur Extremities: + edema (Trace pitting edema of the ankles and feet bilaterally R>L) Chest (Breasts): Chest: normal inspection of chest Gastrointestinal (Abdomen): normal bowel sounds, soft, nontender, no hepatosplenomegaly (Obese) Musculoskeletal: no cyanosis or clubbing, extremities motor strength 5/5 Extremities: no cyanosis and no clubbing Skin: no rashes, warm and dry (No groin tinea or cellulitis noted) Neurologic: moves all extremities and awake; no focal motor deficits Psychiatric: Orientation: alert, oriented to person, oriented to place and oriented to time Speech: normal rate/rhythm/volume of speech Affect: euthymic affect Cognition: recent memory grossly intact (Improved from previous days) Genitourinary: + external erythema (Mild, no areas cellulitis, performed with accordion tuner); no CVA tenderness and no external lesions Results & Data Results & Data ([facility]) Vital Signs (Past 12 Hours) Vital Signs Temp Pulse Pulse Resp BP Pulse Ox 03/02/21 15:21 82 06/12/21 15:13 36.9 C 70 20 100/54 L 98 03/02/21 11:47 37.0 C 72 16 117/76 92 03/02/21 07:28 36.3 C L 69 18 105/72 95 PG Care Time/CCT Total # of Minutes Spent Total Time Spent with Patient: Total time spent is greater than 50% in coordination of care (as documented) at patient's floor/unit and/or counseling patient: Coding Level of Care Code 82722 Subseq Hosp Care Lvl 2 Diagnoses Altered mental state R41.0 Altered mental status type: delirium Hypoxia R09.02 Metabolic alkalosis E87.3 Afib I48.20 Atrial fibrillation type: unspecified chronic Gastrointestinal hemorrhage, unspecified K29.51 GI bleed type/associated pathology: gastritis Gastritis type: chronic gastritis Anemia D64.9 Anemia type: unspecified type CHF (congestive heart failure) I50.9 Heart failure chronicity: chronic Heart failure type: unspecified HTN (hypertension) I10 Hypertension type: essential hypertension HLD (hyperlipidemia) E78.5 Hyperlipidemia type: unspecified Hypokalemia E87.6 Obesity E66.01; Z68.43 Body mass index: BMI 50.0-59.9 Obesity classification: adult class 3 (BMI >= 40) Obesity type: due to excess calories Serious obesity comorbidity presence: with serious comorbidity Gastric bypass status for obesity Z98.84 MOHAMUD (obstructive sleep apnea) G47.33 Dementia F03.90 Dementia behavioral disturbance: without behavioral disturbance Dementia type: unspecified type Dizziness R42 Depression F32.9 Abnormal ECG R94.31 DVT prophylaxis Z29.9 (1) Gastrointestinal hemorrhage, unspecified GI bleed type/associated pathology: gastritis Gastritis type: chronic gastritis Qualified Code(s): K29.51 - Unspecified chronic gastritis with bleeding (2) CHF (congestive heart failure) Heart failure chronicity: chronic Heart failure type: unspecified Qualified Code(s): I50.9 - Heart failure, unspecified (3) Anemia Anemia type: unspecified type Qualified Code(s): D64.9 - Anemia, unspecified (4) Afib Atrial fibrillation type: unspecified chronic Qualified Code(s): I48.20 - Chronic atrial fibrillation, unspecified (5) Dementia Dementia behavioral disturbance: without behavioral disturbance Dementia type: unspecified type Qualified Code(s): F03.90 - Unspecified dementia without behavioral disturbance (6) HLD (hyperlipidemia) Hyperlipidemia type: unspecified Qualified Code(s): E78.5 - Hyperlipidemia, unspecified (7) Altered mental state Altered mental status type: delirium Qualified Code(s): R41.0 - Disorientation, unspecified (8) HTN (hypertension) Hypertension type: essential hypertension Qualified Code(s): I10 - Essential (primary) hypertension (9) Obesity Body mass index: BMI 50.0-59.9 Obesity classification: adult class 3 (BMI >= 40) Obesity type: due to excess calories Serious obesity comorbidity presence: with serious comorbidity Qualified Code(s): E66.01 - Morbid (severe) obesity due to excess calories; Z68.43 - Body mass index [BMI] 50.0-59.9, adult
[2021-03-03 05:38] LABS: Basophils # (auto) 0.03 K/uL (0-0.2); Basophils % (auto) 0.5 %; Eosinophils # (auto) 0.19 K/uL (0-0.5); Hematocrit (blood only) 37.7 % (37-47); Hemoglobin 11.1 g/dL (12.0-16.0); Immature Granulocytes % (auto) 1.6 %; Lymphocytes % (auto) 20.4 %; Mean Corpuscular Hemoglobin 29.4 pg (25-34); Mean Corpuscular Hgb Conc 29.4 g/dL (32-36); Mean Corpuscular Volume 99.7 fL (80-100); Mean Platelet Volume 9.3 fL (7.4-10.4); Monocytes # (auto) 0.88 K/uL (0.11-0.59); Monocytes % (auto) 13.8 %; Neutrophils # (auto) 3.88 K/uL (1.4-6.5); Neutrophils % (auto) 60.7 %; Platelet Count 388 K/uL (130-400); RDW Coefficient of Variation 18.1 % (11.5-14.5); RDW Standard Deviation 66.6 fL (36.4-46.3); Red Blood Count 3.78 M/uL (4.2-5.4); White Blood Count 6.38 K/uL (4.8-10.8)
[2021-03-03 06:19] LABS: Albumin Level 2.9 gm/dl (3.4-5.0); BUN Creatinine Ratio 20.7 (10-20); Bilirubin,Total 0.7 mg/dl (0.2-1); Calcium 8.6 mg/dl (8.5-10.1); Creatinine Clr Calc Pharmacy 46.7 ml/min; Est GFR (African American) 53.9 ml/min; Est GFR (Non-African American) 46.5 ml/min; Globulin 2.9 gm/dl (2.5-4.0); Magnesium 1.9 mg/dl (1.8-2.4); Phosphorus 3.3 mg/dl (2.5-4.9); Total Protein 5.8 gm/dl (6.4-8.2)
[2021-03-03] MEDS: SILVER SULFADIAZINE 1% CR 50 GM JAR EXT SCH ×2 (08:02→20:51)
[2021-03-03] MEDS: MAGNESIUM OXIDE 400 MG TAB PO SCH ×2 (08:03→17:31)
[2021-03-03] MEDS: POT PHOSPHATE MONOBASIC W/ SOD TAB PO SCH ×3 (08:03→17:31)
[2021-03-03] MEDS: ESCITALOPRAM OXALATE 10 MG TAB PO SCH (08:04)
[2021-03-03] MEDS: APIXABAN 5 MG TABLET PO SCH ×2 (08:04→20:49)
[2021-03-03] MEDS: FUROSEMIDE 40 MG TAB PO SCH (08:04)
[2021-03-03] MEDS: METOPROLOL TARTRATE 25 MG TAB PO SCH ×2 (08:05→21:23)
[2021-03-03] MEDS: PANTOprazole 40 MG TAB PO SCH ×2 (08:05→20:51)
[2021-03-03] MEDS: PRAVASTATIN SOD 10 MG TAB PO SCH (08:06)
[2021-03-03] MEDS: POTASSIUM CHLORIDE CRTAB 20 MEQ TABCR PO SCH (08:07)
--- NOTE | 2021-03-03 09:55 | Hospitalist Progress Note ---
Date of Service March 03, 2021 Assessment & Plan (1) Altered mental state: Significant change in mental status over last 2 weeks, suspect secondary to digoxin toxicity. Acutely worse 03/03 again suggests waxing and waning delirium ?from worse sleep overnight from BiPAP CXR, UA, CT head, MRI head unremarkable Ammonia WNL (2) Hypoxia: Chest x-ray with atelectasis. Suspect secondary to obesity hypoventilation and noncompliance with CPAP at night. May use own CPAP at night as intolerant to BiPAP Incentive spirometry throughout the day (3) Metabolic alkalosis: Suspect due to overdiuresis Given increasing BUN and creatinine on a.m. labs, lasix initially discontinued but now reduced to 40mg PO daily. May be contributing towards altered mental state (4) Afib: Rate controlled. This was new in onset during recent hospitalization at [facility] She [facility] Well controlled rate with metoprolol 25mg PO BID Restarted on Eliquis, will monitor for further blood loss (5) Gastrointestinal hemorrhage, unspecified: This patient is a 76 yo obese female with Afib on Eliquis, HTN, hypokalemia, depression, MCI,gastric bypass, here with GI bleed and mild anemia Hemodynamically stable, Hgb stable, Hemoccult positive Apparently she was transfused 2 units of blood 2 weeks ago and [facility] during her stay for CHF and new onset atrial fibrillation -EGD/colonoscopy 02/25, no acute bleeding seen, gastritis, one colonic polyp removed -Continue Protonix 40 mg PO BID -Restarted Eliquis per GI recommendations (6) Anemia: As above, patient was transfused 2 units of PRBCs during previous admission at outside hospital for hemoglobin of 8-9 Hemoglobin here as above is at 10.5 with melena She was started on oral iron supplementation upon discharge to rehab MCV is borderline macrocytic She does have a history of gastric bypass surgery Iron studies normal here, B12 and folate are also normal TSH normal Likely secondary to GI bleeding Follow CBC Continue iron supplementation upon discharge (7) CHF (congestive heart failure): HFpEF- Patient reports that her EF 50% Mild volume overload with edema in the ankles and feet on admission I do not have record of her weight upon discharge from recent hospitalization, however her daughter reports she was 136 kg before she went into the [facility] 2 weeks ago -Lasix as above (currently on hold) -Daily weights stable, I's and O's - inaccurate TTE- unremarkable (8) HTN (hypertension): Blood pressure here is normal, unclear if this is a definite diagnosis She is only on Lasix for heart failure and actually her daughter reports that she had low blood pressures when she was on metoprolol with her atrial fibrillation Monitor orthostatics as we restart metoprolol (9) HLD (hyperlipidemia): Continue pravastatin 10 mg PO Qam (10) Hypokalemia: Chronic- she is on Kdur as well as Kphos packets multiple times a day - She feels this is also why she was just put on Fludrocortisone 01.mg - AM cortisol normal -Fludrocortisone here has been held for now (11) Obesity: Chronic obesity, BMI 54.9 - No acute needs, needs weight loss Has a history of gastric bypass surgery but gained a lot of the weight back (12) Gastric bypass status for obesity: As above - Follow labs- supplements and complexes may need added/adjusted (13) MOHAMUD (obstructive sleep apnea): She wears CPAP 4cmH2O - we have no records available - CPAP at night or while sleeping (14) Dementia: Denied diagnosis from her sister (15) Dizziness: This has been going on for 3 months per the daughter, where they adjusted her medications Perhaps this was secondary to her newly diagnosed atrial fibrillation She still complains of some mild dizziness here but is improved she reports (16) Depression: Continue Lexapro (17) Abnormal ECG: ECG with ST and T wave abnormality in the anterolateral leads consistent on repeat ECG Troponins serially negative Possible digoxin effect (18) DVT prophylaxis: Eliquis as above Disposition-medically stable for discharge at this time pending placement Admission and Anticipated Discharge Date Admission Date: February 23, 2021 Subjective Less confusion than sudden worsening yesterday. No specific cause of this other than poor nights sleep on BiPAP. Review of Systems Review of Systems: All systems reviewed & are unremarkable except as noted in HPI & below Physical Exam Constitutional: WD/WN, vitals as above Eyes: + anicteric sclerae Neck: trachea midline, no thyromegaly Respiratory: normal respiratory effort, lungs clear to auscultation Cardiovascular: Rate/Rhythm: regular rate and + irregularly irregular Heart Sounds: no murmur Extremities: + edema (Trace pitting edema of the ankles and feet bilaterally R>L) Chest (Breasts): Chest: normal inspection of chest Gastrointestinal (Abdomen): normal bowel sounds, soft, nontender, no hepatosplenomegaly (Obese) Musculoskeletal: no cyanosis or clubbing, extremities motor strength 5/5 Extremities: no cyanosis and no clubbing Skin: no rashes, warm and dry (No groin tinea or cellulitis noted) + wound (Right knee small open and left dorsal 2nd/3rd toes improving from prior bli) Neurologic: moves all extremities, awake and + confused (mild); no focal motor deficits Motor/Sensory: no pronator drift Psychiatric: Orientation: alert, oriented to person and oriented to place; + not oriented to time Speech: normal rate/rhythm/volume of speech Affect: euthymic affect Cognition: recent memory grossly intact (mostly) Results & Data Results & Data ([facility]) Vital Signs (Past 12 Hours) Vital Signs Temp Pulse Pulse Resp BP BP Pulse Ox 03/03/21 07:44 36.8 C 75 18 119/71 92 03/03/21 04:11 36.5 C 64 18 106/66 92 03/02/21 22:20 37.1 C 63 80 18 94/62 L 90 PG Care Time/CCT Total # of Minutes Spent Total Time Spent with Patient: Total time spent is greater than 50% in coordination of care (as documented) at patient's floor/unit and/or counseling patient: Coding Level of Care Code 15507 Subseq Hosp Care Lvl 1 Diagnoses Altered mental state R41.0 Altered mental status type: delirium Hypoxia R09.02 Metabolic alkalosis E87.3 Afib I48.20 Atrial fibrillation type: unspecified chronic Gastrointestinal hemorrhage, unspecified K29.51 GI bleed type/associated pathology: gastritis Gastritis type: chronic gastritis Anemia D64.9 Anemia type: unspecified type CHF (congestive heart failure) I50.9 Heart failure chronicity: chronic Heart failure type: unspecified HTN (hypertension) I10 Hypertension type: essential hypertension HLD (hyperlipidemia) E78.5 Hyperlipidemia type: unspecified Hypokalemia E87.6 Obesity E66.01; Z68.43 Body mass index: BMI 50.0-59.9 Obesity classification: adult class 3 (BMI >= 40) Obesity type: due to excess calories Serious obesity comorbidity presence: with serious comorbidity Gastric bypass status for obesity Z98.84 MOHAMUD (obstructive sleep apnea) G47.33 Dementia F03.90 Dementia behavioral disturbance: without behavioral disturbance Dementia type: unspecified type Dizziness R42 Depression F32.9 Abnormal ECG R94.31 DVT prophylaxis Z29.9 (1) Gastrointestinal hemorrhage, unspecified GI bleed type/associated pathology: gastritis Gastritis type: chronic gastritis Qualified Code(s): K29.51 - Unspecified chronic gastritis with bleeding (2) CHF (congestive heart failure) Heart failure chronicity: chronic Heart failure type: unspecified Qualified Code(s): I50.9 - Heart failure, unspecified (3) Anemia Anemia type: unspecified type Qualified Code(s): D64.9 - Anemia, unspecified (4) Afib Atrial fibrillation type: unspecified chronic Qualified Code(s): I48.20 - Chronic atrial fibrillation, unspecified (5) Dementia Dementia behavioral disturbance: without behavioral disturbance Dementia type: unspecified type Qualified Code(s): F03.90 - Unspecified dementia without behavioral disturbance (6) HLD (hyperlipidemia) Hyperlipidemia type: unspecified Qualified Code(s): E78.5 - Hyperlipidemia, unspecified (7) Altered mental state Altered mental status type: delirium Qualified Code(s): R41.0 - Disorientation, unspecified (8) HTN (hypertension) Hypertension type: essential hypertension Qualified Code(s): I10 - Essential (primary) hypertension (9) Obesity Body mass index: BMI 50.0-59.9 Obesity classification: adult class 3 (BMI >= 40) Obesity type: due to excess calories Serious obesity comorbidity presence: with serious comorbidity Qualified Code(s): E66.01 - Morbid (severe) obesity due to excess calories; Z68.43 - Body mass index [BMI] 50.0-59.9, adult
--- NOTE | 2021-03-03 11:30 | Magnetic Resonance Report ---
MRI OF THE BRAIN WITHOUT CONTRAST CLINICAL HISTORY: Slurred speech. COMPARISON STUDY: Head CT February 25, 2021. TECHNIQUE: Utilizing a 1.5 Lula magnet and dedicated coil, multiplanar, multiecho imaging of the bra in was performed without IV contrast. FINDINGS: This exam is compromised by motion artifact. There are no foci of restricted diffusion to s uggest acute infarct. No acute intracranial hemorrhage, midline shift or mass effect is present. Vent ricular system is unremarkable. Basal cisterns are patent. There are no extra axial collections. A 5 mm round density along the anterior falx likely reflects a small meningioma. White matter T2 hyperint ense foci suggest mild small vessel disease. Bilateral mastoid air cells are partially opacified. Jim varial signal is maintained. There is no evidence for sinusitis. IMPRESSION: 1. No acute intracranial findings. Exam mildly compromised by motion artifact. 2. Partially opacified bilateral mastoid air cells. 3. Suspected small 5 mm meningioma along the anterior falx. ACT 112: Negative or not required by law. Electronically signed by: Rodger Naqvi M.D. 03/03/2021 11:29 AM
[2021-03-04] MEDS: SILVER SULFADIAZINE 1% CR 50 GM JAR EXT SCH ×2 (08:49→20:48)
[2021-03-04] MEDS: POTASSIUM CHLORIDE CRTAB 20 MEQ TABCR PO SCH (08:50)
[2021-03-04] MEDS: PRAVASTATIN SOD 10 MG TAB PO SCH (08:50)
[2021-03-04] MEDS: METOPROLOL TARTRATE 25 MG TAB PO SCH ×2 (08:51→20:46)
[2021-03-04] MEDS: PANTOprazole 40 MG TAB PO SCH ×2 (08:51→20:45)
[2021-03-04] MEDS: FUROSEMIDE 40 MG TAB PO SCH (08:52)
[2021-03-04] MEDS: ESCITALOPRAM OXALATE 10 MG TAB PO SCH (08:52)
[2021-03-04] MEDS: MAGNESIUM OXIDE 400 MG TAB PO SCH ×2 (08:52→16:35)
[2021-03-04] MEDS: APIXABAN 5 MG TABLET PO SCH ×2 (08:54→20:46)
[2021-03-04] MEDS: POT PHOSPHATE MONOBASIC W/ SOD TAB PO SCH ×3 (08:54→16:36)
[2021-03-04 08:57] LABS: BUN Creatinine Ratio 18.8 (10-20); Calcium 8.9 mg/dl (8.5-10.1); Creatinine Clr Calc Pharmacy 49.7 ml/min; Est GFR (African American) 58.2 ml/min; Est GFR (Non-African American) 50.2 ml/min; Potassium 3.6 mmol/L (3.5-5.1)
[2021-03-04] MEDS ORDERED: cefTRIAXone SODIUM 2,000 MG in DEXTROSE 5% 50 ML IV SCH (09:15)
--- NOTE | 2021-03-04 14:07 | Hospitalist Progress Note ---
Date of Service March 04, 2021 Assessment & Plan (1) Gastrointestinal hemorrhage, unspecified: This patient is a 76 yo obese female with Afib on Eliquis, HTN, hypokalemia, depression, MCI,gastric bypass, here with GI bleed and mild anemia Hemodynamically stable, Hgb stable, Hemoccult positive Apparently she was transfused 2 units of blood 2 weeks ago and [facility] during her stay for CHF and new onset atrial fibrillation -EGD/colonoscopy 02/25, no acute bleeding seen, gastritis, one colonic polyp removed which is a benign inflammatory type polyp on pathology -Continue Protonix 40 mg PO BID -Restarted Eliquis per GI recommendations -Hemoglobin remained stable for many days (2) Altered mental state: With acute metabolic encephalopathy, significant change in mental status over last 2 weeks as per family, suspect secondary to digoxin toxicity. Acutely worse 03/03 again suggests waxing and waning delirium ?from worse sleep overnight from BiPAP On 03/04, she is much improved since when I saw her last on 02/24-she is having much less difficulty with word finding, she recalls previous conversations about her health care and the testing that she has had performed. CXR, CT head, MRI head unremarkable Ammonia WNL Hemoglobin remained stable no further GI bleeding Renal function is intact Repeat digoxin level is back to a therapeutic range and she is no longer on digoxin UA is abnormal and urine culture now growing Seema glabrata She has not yet been treated for this UTI, but will consult infectious disease to see if this is felt to be necessary -Continue supportive care, frequent reorientation Her [id number] arrived at the bedside during our visit on 03/04 reports that the patient's been having ongoing issues with her memory and "senior moments" for the last year-this may represent progressing dementia (3) Hypoxia: Chest x-ray with atelectasis. Suspect secondary to obesity hypoventilation and noncompliance with CPAP at night. May use own CPAP at night as intolerant to BiPAP Incentive spirometry throughout the day Is off oxygen during the day (4) Metabolic alkalosis: Suspect due to overdiuresis-now improved Given increasing BUN and creatinine on a.m. labs, lasix initially discontinued but now reduced to 40mg PO daily. (5) Afib: Rate controlled. This was new in onset during recent hospitalization at [facility] She follows with Dr. Knight of cardiology at [facility] Well controlled rate with metoprolol 25mg PO BID although had rates down to 30 overnight likely from not using CPAP Will reduce metoprolol to 25 mg in the morning and 12.5 mg at bedtime Restarted on Eliquis, will monitor for further blood loss-none so far Continue on telemetry (6) Anemia: As above, patient was transfused 2 units of PRBCs during previous admission at outside hospital for hemoglobin of 8-9 Hemoglobin here as above is at 10.5 with melena upon admission and is now improved up to 11 She was started on oral iron supplementation upon discharge to rehab MCV is borderline macrocytic She does have a history of gastric bypass surgery Iron studies normal here, B12 and folate are also normal TSH normal Likely secondary to GI bleeding Follow CBC Continue iron supplementation upon discharge (7) CHF (congestive heart failure): HFpEF- Patient reports that her EF 50% Mild volume overload with edema in the ankles and feet on admission which is now resolved I do not have record of her weight upon discharge from recent hospitalization, however her daughter reports she was 136 kg before she went into the [facility] 2 weeks ago -Lasix reduced to 40 mg once daily -Daily weights stable, I's and O's - inaccurate TTE- unremarkable, with preserved EF (8) HTN (hypertension): Blood pressure here is normal, unclear if this is a definite diagnosis She is only on Lasix for heart failure and actually her daughter reports that she had low blood pressures when she was on metoprolol with her atrial fibrillation Monitor orthostatics as we restart metoprolol (9) HLD (hyperlipidemia): Continue pravastatin 10 mg PO Qam (10) Hypokalemia: Chronic- she is on Kdur as well as Kphos packets multiple times a day - She feels this is also why she was just put on Fludrocortisone 01.mg - AM cortisol normal -Fludrocortisone here has been held for now and seems to be doing well Follow BMP (11) Obesity: Chronic obesity, BMI now down to 52.3 - No acute needs, needs weight loss Has a history of gastric bypass surgery but gained a lot of the weight back (12) Gastric bypass status for obesity: As above - Follow labs- supplements and complexes may need added/adjusted (13) MOHAMUD (obstructive sleep apnea): She wears CPAP 4cmH2O - we have no records available - CPAP at night or while sleeping (14) Dementia: Not officially diagnosed, but [id number] at the bedside reports that patient has had ongoing "senior moments" for the last year and difficulty with word finding and memory Follow-up as an outpatient (15) Dizziness: This has been going on for 3 months per the daughter, where they adjusted her medications Perhaps this was secondary to her newly diagnosed atrial fibrillation She still complains of some mild dizziness here but is improved she reports (16) Depression: Continue Lexapro (17) Abnormal ECG: ECG with ST and T wave abnormality in the anterolateral leads consistent on repeat ECG Troponins serially negative Possible digoxin effect (18) UTI (urinary tract infection): Abnormal UA-this was collected when she became more encephalopathic on 03/02 Urine culture now growing Seema glabrata Unclear if this is telemarketing representative of a true infection Consult infectious disease for further evaluation to determine if would need treatment (19) DVT prophylaxis: Eliquis as above Disposition-continued stay, await infectious disease consultation, but can likely be discharged to rehab tomorrow if no treatment needed for UTI Admission and Anticipated Discharge Date Admission Date: February 23, 2021 Subjective Patient reports feeling well. She was up standing with occupational therapy today and had an episode of bowel incontinence on the floor that she seems embarrassed about. There was no blood in the stool that I saw. She reports she does not think she is confused anymore but knows that she previously was. She denies any urinary symptoms. No abdominal pain. No chest pain or shortness of breath. Telemetry with atrial fibrillation and PVCs with rates in the 60s but did drop down to 30 overnight and had a 3.5-second pause with that while sleeping. Review of Systems Review of Systems: All systems reviewed & are unremarkable except as noted in HPI & below Physical Exam Constitutional: WD/WN, vitals as above Eyes: + anicteric sclerae Neck: trachea midline, no thyromegaly Respiratory: normal respiratory effort, lungs clear to auscultation Cardiovascular: Rate/Rhythm: regular rate and + irregularly irregular Heart Sounds: no murmur Extremities: no edema Chest (Breasts): Chest: normal inspection of chest Gastrointestinal (Abdomen): normal bowel sounds, soft, nontender, no hepatosplenomegaly (Obese) Musculoskeletal: Extremities: no cyanosis and no clubbing Skin: + wound (Right knee now closed and left dorsal 2nd/3rd toes w/ old blood blister) Neurologic: moves all extremities and awake; no focal motor deficits Psychiatric: Orientation: alert, oriented to person, oriented to place ("Hospital" and "[place], [place]") and cooperative Eye Contact: good eye contact Speech: normal rate/rhythm/volume of speech Affect: euthymic affect Cognition: recent memory grossly intact (Much improved from previous) Results & Data Results & Data ([facility]) Vital Signs (Past 12 Hours) Vital Signs Temp Pulse Pulse Resp BP BP Pulse Ox 03/04/21 12:03 36.4 C L 61 18 104/68 95 03/04/21 07:30 36.6 C 66 18 113/69 90 03/04/21 02:54 36.5 C 75 14 121/77 94 Laboratory Results 03/03/21 05:05 03/04/21 07:25 PG Care Time/CCT Total # of Minutes Spent Total Time Spent with Patient: Total time spent is greater than 50% in coordination of care (as documented) at patient's floor/unit and/or counseling patient: Coding Level of Care Code 57887 Subseq Hosp Care Lvl 3 Diagnoses Gastrointestinal hemorrhage, unspecified K29.51 GI bleed type/associated pathology: gastritis Gastritis type: chronic gastritis Altered mental state R41.0 Altered mental status type: delirium Hypoxia R09.02 Metabolic alkalosis E87.3 Afib I48.20 Atrial fibrillation type: unspecified chronic Anemia D64.9 Anemia type: unspecified type CHF (congestive heart failure) I50.9 Heart failure type: unspecified Heart failure chronicity: chronic HTN (hypertension) I10 Hypertension type: essential hypertension HLD (hyperlipidemia) E78.5 Hyperlipidemia type: unspecified Hypokalemia E87.6 Obesity E66.01; Z68.43 Obesity type: due to excess calories Obesity classification: adult class 3 (BMI >= 40) Serious obesity comorbidity presence: with serious comorbidity Body mass index: BMI 50.0-59.9 Gastric bypass status for obesity Z98.84 MOHAMUD (obstructive sleep apnea) G47.33 Dementia F03.90 Dementia type: unspecified type Dementia behavioral disturbance: without behavioral disturbance Dizziness R42 Depression F32.9 Abnormal ECG R94.31 UTI (urinary tract infection) N39.0 DVT prophylaxis Z29.9 (1) Altered mental state Altered mental status type: delirium Qualified Code(s): R41.0 - Disorientation, unspecified (2) Afib Atrial fibrillation type: unspecified chronic Qualified Code(s): I48.20 - Chronic atrial fibrillation, unspecified (3) Gastrointestinal hemorrhage, unspecified GI bleed type/associated pathology: gastritis Gastritis type: chronic gastritis Qualified Code(s): K29.51 - Unspecified chronic gastritis with bleeding (4) Anemia Anemia type: unspecified type Qualified Code(s): D64.9 - Anemia, unspecified (5) CHF (congestive heart failure) Heart failure type: unspecified Heart failure chronicity: chronic Qualified Code(s): I50.9 - Heart failure, unspecified (6) HTN (hypertension) Hypertension type: essential hypertension Qualified Code(s): I10 - Essential (primary) hypertension (7) HLD (hyperlipidemia) Hyperlipidemia type: unspecified Qualified Code(s): E78.5 - Hyperlipidemia, unspecified (8) Obesity Obesity type: due to excess calories Obesity classification: adult class 3 (BMI >= 40) Serious obesity comorbidity presence: with serious comorbidity Body mass index: BMI 50.0-59.9 Qualified Code(s): E66.01 - Morbid (severe) obesity due to excess calories; Z68.43 - Body mass index [BMI] 50.0-59.9, adult (9) Dementia Dementia type: unspecified type Dementia behavioral disturbance: without behavioral disturbance Qualified Code(s): F03.90 - Unspecified dementia without behavioral disturbance
[2021-03-05 08:06] LABS: Basophils # (auto) 0.02 K/uL (0-0.2); Basophils % (auto) 0.3 %; Eosinophils # (auto) 0.17 K/uL (0-0.5); Eosinophils % (auto) 2.2 %; Hematocrit (blood only) 39.2 % (37-47); Hemoglobin 11.8 g/dL (12.0-16.0); Immature Granulocytes # (auto) 0.08 K/uL (0.00-0.02); Lymphocytes % (auto) 11.7 %; Mean Corpuscular Hemoglobin 29.3 pg (25-34); Mean Corpuscular Hgb Conc 30.1 g/dL (32-36); Mean Corpuscular Volume 97.3 fL (80-100); Mean Platelet Volume 9.6 fL (7.4-10.4); Monocytes # (auto) 1.18 K/uL (0.11-0.59); Monocytes % (auto) 15.3 %; Neutrophils # (auto) 5.36 K/uL (1.4-6.5); Neutrophils % (auto) 69.5 %; Platelet Count 361 K/uL (130-400); RDW Coefficient of Variation 17.8 % (11.5-14.5); RDW Standard Deviation 63.7 fL (36.4-46.3); Red Blood Count 4.03 M/uL (4.2-5.4); White Blood Count 7.71 K/uL (4.8-10.8)
[2021-03-05 08:39] LABS: BUN Creatinine Ratio 18.2 (10-20); Creatinine Clr Calc Pharmacy 51.9 ml/min; Est GFR (African American) 61.6 ml/min; Est GFR (Non-African American) 53.1 ml/min; Magnesium 1.9 mg/dl (1.8-2.4); Potassium 3.4 mmol/L (3.5-5.1)
[2021-03-05] MEDS: SILVER SULFADIAZINE 1% CR 50 GM JAR EXT SCH ×2 (09:37→20:24)
[2021-03-05] MEDS: PANTOprazole 40 MG TAB PO SCH ×2 (09:37→20:24)
[2021-03-05] MEDS: MAGNESIUM OXIDE 400 MG TAB PO SCH ×2 (09:37→17:19)
[2021-03-05] MEDS: METOPROLOL TARTRATE 25 MG TAB PO SCH ×2 (09:38→20:24)
[2021-03-05] MEDS: FUROSEMIDE 40 MG TAB PO SCH (09:38)
[2021-03-05] MEDS: POT PHOSPHATE MONOBASIC W/ SOD TAB PO SCH ×3 (09:39→17:19)
[2021-03-05] MEDS: ESCITALOPRAM OXALATE 10 MG TAB PO SCH (09:39)
[2021-03-05] MEDS: APIXABAN 5 MG TABLET PO SCH ×2 (09:39→20:24)
[2021-03-05] MEDS: PRAVASTATIN SOD 10 MG TAB PO SCH (09:41)
[2021-03-05] MEDS ORDERED: POTASSIUM CHLORIDE CRTAB 20 MEQ TABCR PO STA (09:44)
[2021-03-05] MEDS: POTASSIUM CHLORIDE CRTAB 20 MEQ TABCR PO SCH (10:42)
[2021-03-05] MEDS: ACETAMINOPHEN 325 MG TAB PO PRN (10:51)
[2021-03-05] MEDS: cefTRIAXone SODIUM 2,000 MG in DEXTROSE 5% 50 ML IV SCH ×2 (10:51→12:07)
--- NOTE | 2021-03-05 13:37 | Hospitalist Progress Note ---
Date of Service March 05, 2021 Assessment & Plan (1) Gastrointestinal hemorrhage, unspecified: This patient is a 76 yo obese female with Afib on Eliquis, HTN, hypokalemia, depression, MCI,gastric bypass, here with GI bleed and mild anemia Hemodynamically stable, Hgb stable for many days, Hemoccult positive Apparently she was transfused 2 units of blood 2 weeks ago and [facility] during her stay for CHF and new onset atrial fibrillation -EGD/colonoscopy 02/25, no acute bleeding seen, gastritis, one colonic polyp removed which is a benign inflammatory type polyp on pathology -Continue Protonix 40 mg PO BID -Restarted Eliquis per GI recommendations -Hemoglobin remained stable for many days -Should check CBC in 1 week after discharge (2) Altered mental state: With acute metabolic encephalopathy, significant change in mental status over last 2 weeks as per family, suspect secondary to digoxin toxicity. Has had some delirium in the hospital but overall improved since admission She has been having difficulty with word finding and short-term memory loss for at least the last year as per her daughter and [id number] that lives with her CXR, CT head, MRI head unremarkable Ammonia WNL, TSH normal Hemoglobin remained stable no further GI bleeding Renal function is intact Repeat digoxin level is back to a therapeutic range and she is no longer on digoxin UA is abnormal and urine culture now growing Seema glabrata, however this is likely a contamination-appreciate ID consultation-no need to treat -Recommended neuropsychological assessment as an outpatient after acute medical issues in the hospital are resolved to evaluate for dementia (3) Hypoxia: Chest x-ray with atelectasis. Suspect secondary to obesity hypoventilation and noncompliance with CPAP at night. May use own CPAP at night as intolerant to BiPAP Incentive spirometry throughout the day Is off oxygen during the day (4) Metabolic alkalosis: Suspect due to overdiuresis-now improved Given increasing BUN and creatinine on a.m. labs, lasix initially discontinued but now reduced to 40mg PO daily. (5) Afib: Rate controlled. This was new in onset during recent hospitalization at [facility] She follows with Dr. Knight of cardiology at [facility] Well controlled rate with metoprolol 25mg PO in the morning and 12.5 mg at bedtime -Continue Eliquis, will monitor for further blood loss-none so far Downgrade from telemetry (6) Anemia: As above, patient was transfused 2 units of PRBCs during previous admission at outside hospital for hemoglobin of 8-9 Hemoglobin here as above is at 10.5 with melena upon admission and is now improved up to 11 She was started on oral iron supplementation upon discharge to rehab MCV is borderline macrocytic She does have a history of gastric bypass surgery Iron studies normal here, B12 and folate are also normal TSH normal Likely secondary to GI bleeding Follow CBC in 1 week Continue iron supplementation upon discharge (7) CHF (congestive heart failure): HFpEF- Patient reports that her EF 50% Mild volume overload with edema in the ankles and feet on admission which is now resolved I do not have record of her weight upon discharge from recent hospitalization, however her daughter reports she was 136 kg before she went into the [facility] 2 weeks ago -Lasix reduced to 40 mg once daily from home dose of twice daily -Daily weights stable, I's and O's - inaccurate TTE- unremarkable, with preserved EF (8) HTN (hypertension): Blood pressure here is normal, unclear if this is a definite diagnosis She is only on Lasix for heart failure and actually her daughter reports that she had low blood pressures when she was on metoprolol with her atrial fibrillation (9) HLD (hyperlipidemia): Continue pravastatin 10 mg PO Qam (10) Hypokalemia: Chronic- she is on Kdur as well as Kphos packets multiple times a day - She feels this is also why she was just put on Fludrocortisone 01.mg - AM cortisol normal -Fludrocortisone here has been held for now and seems to be doing well-would not recommend restarting We will give another 20 mEq of potassium chloride today Follow BMP in 1 week at nursing facility (11) Obesity: Chronic obesity, BMI now down to 52.0 - No acute needs, needs weight loss Has a history of gastric bypass surgery but gained a lot of the weight back (12) Gastric bypass status for obesity: As above - Follow labs- supplements and complexes may need added/adjusted (13) MOHAMUD (obstructive sleep apnea): She wears CPAP 4cmH2O - we have no records available - CPAP at night or while sleeping (14) Dementia: Not officially diagnosed, but [id number] at the bedside reports that patient has had ongoing "senior moments" for the last year and difficulty with word finding and memory Follow-up as an outpatient as above (15) Dizziness: This has been going on for 3 months per the daughter, where they adjusted her medications Perhaps this was secondary to her newly diagnosed atrial fibrillation She still complains of some mild dizziness here but is improved she reports (16) Depression: Continue Lexapro (17) Abnormal ECG: ECG with ST and T wave abnormality in the anterolateral leads consistent on repeat ECG Troponins serially negative Possible digoxin effect (18) UTI (urinary tract infection): Abnormal UA-this was collected when she became more encephalopathic on 03/02 Urine culture now growing Seema glabrata This is most likely contamination Consult infectious disease for further evaluation to determine if would need treatment-appreciate consultation, no treatment needed (19) DVT prophylaxis: Eliquis as above Disposition-medically stable for discharge, however transportation could not be arranged for logistical purposes to rehab at [facility] today Admission and Anticipated Discharge Date Admission Date: February 23, 2021 Subjective Patient reports feeling well today. She still has some occasional lightheadedness at times. Denies chest pains or shortness of breath, no nausea or vomiting, no abdominal pains. She still reports frustration with occasional difficulty with her memory. Telemetry with atrial fibrillation, rates in the 60s to 70s with a very brief dip into the mid 30s overnight. Review of Systems Review of Systems: All systems reviewed & are unremarkable except as noted in HPI & below Physical Exam Constitutional: WD/WN, vitals as above Eyes: + anicteric sclerae Neck: trachea midline, no thyromegaly Respiratory: normal respiratory effort, lungs clear to auscultation Cardiovascular: Rate/Rhythm: regular rate and + irregularly irregular Heart Sounds: no murmur Extremities: no edema Chest (Breasts): Chest: normal inspection of chest Gastrointestinal (Abdomen): normal bowel sounds, soft, nontender, no hepatospl enomegaly (Obese) Musculoskeletal: Extremities: no cyanosis and no clubbing Skin: + wound (Right knee now closed and left dorsal 2nd/3rd toes w/ old blood blister) Neurologic: moves all extremities and awake; no focal motor deficits Psychiatric: Orientation: alert, oriented to person and cooperative Eye Contact: good eye contact Speech: normal rate/rhythm/volume of speech Affect: euthymic affect Cognition: recent memory grossly intact (Much improved from previous) Results & Data Results & Data ([facility]) Vital Signs (Past 12 Hours) Vital Signs Temp Pulse Resp BP Pulse Ox 03/05/21 11:03 36.5 C 73 20 107/68 92 03/05/21 07:18 36.5 C 74 18 123/74 92 03/05/21 03:00 36.5 C 85 20 103/67 91 Laboratory Results 03/05/21 03/05/21 Range/Units 07:28 07:28 WBC 7.71 (4.8-10.8) K/uL RBC 4.03 L (4.2-5.4) M/uL Hgb 11.8 L (12.0-16.0) g/dL Hct 39.2 (37-47) % MCV 97.3 (80-100) fL MCH 29.3 (25-34) pg MCHC 30.1 L (32-36) g/dL RDW Std Deviation 63.7 H (36.4-46.3) fL RDW Coeff of Bea 17.8 H (11.5-14.5) % Plt Count 361 (130-400) K/uL MPV 9.6 (7.4-10.4) fL Immature Gran % (Auto) 1.0 % Neut % (Auto) 69.5 % Lymph % (Auto) 11.7 % Ford % (Auto) 15.3 % Eos % (Auto) 2.2 % Baso % (Auto) 0.3 % Neut # (Auto) 5.36 (1.4-6.5) K/uL Lymph # (Auto) 0.90 L (1.2-3.4) K/uL Ford # (Auto) 1.18 H (0.11-0.59) K/uL Eos # (Auto) 0.17 (0-0.5) K/uL Baso # (Auto) 0.02 (0-0.2) K/uL Immature Gran # (Auto) 0.08 H (0.00-0.02) K/uL Sodium 143 (136-145) mmol/L Potassium 3.4 L (3.5-5.1) mmol/L Chloride 104 (98-107) mmol/L Carbon Dioxide 30 (21-32) mmol/L Anion Gap 9.0 (3-11) BUN 19 H (7-18) mg/dl Creatinine 1.03 (0.6-1.2) mg/dl Est Cr Clr Drug Dosing 51.9 ml/min Est GFR ( Amer) 61.6 ml/min Est GFR (Non-Af Amer) 53.1 ml/min BUN/Creatinine Ratio 18.2 (10-20) Glucose 75 (70-99) mg/dl Calcium 9.0 (8.5-10.1) mg/dl Magnesium 1.9 (1.8-2.4) mg/dl PG Care Time/CCT Total # of Minutes Spent Total Time Spent with Patient: Total time spent is greater than 50% in coordination of care (as documented) at patient's floor/unit and/or counseling patient: Coding Level of Care Code 79229 Subseq Hosp Care Lvl 2 Diagnoses Gastrointestinal hemorrhage, unspecified K29.51 GI bleed type/associated pathology: gastritis Gastritis type: chronic gastritis Altered mental state R41.0 Altered mental status type: delirium Hypoxia R09.02 Metabolic alkalosis E87.3 Afib I48.20 Atrial fibrillation type: unspecified chronic Anemia D64.9 Anemia type: unspecified type CHF (congestive heart failure) I50.9 Heart failure chronicity: chronic Heart failure type: unspecified HTN (hypertension) I10 Hypertension type: essential hypertension HLD (hyperlipidemia) E78.5 Hyperlipidemia type: unspecified Hypokalemia E87.6 Obesity E66.01; Z68.43 Body mass index: BMI 50.0-59.9 Obesity classification: adult class 3 (BMI >= 40) Obesity type: due to excess calories Serious obesity comorbidity presence: with serious comorbidity Gastric bypass status for obesity Z98.84 MOHAMUD (obstructive sleep apnea) G47.33 Dementia F03.90 Dementia behavioral disturbance: without behavioral disturbance Dementia type: unspecified type Dizziness R42 Depression F32.9 Abnormal ECG R94.31 UTI (urinary tract infection) N39.0 DVT prophylaxis Z29.9 (1) Gastrointestinal hemorrhage, unspecified GI bleed type/associated pathology: gastritis Gastritis type: chronic gastritis Qualified Code(s): K29.51 - Unspecified chronic gastritis with bleeding (2) CHF (congestive heart failure) Heart failure chronicity: chronic Heart failure type: unspecified Qualified Code(s): I50.9 - Heart failure, unspecified (3) Anemia Anemia type: unspecified type Qualified Code(s): D64.9 - Anemia, unspecified (4) Afib Atrial fibrillation type: unspecified chronic Qualified Code(s): I48.20 - Chronic atrial fibrillation, unspecified (5) Dementia Dementia behavioral disturbance: without behavioral disturbance Dementia type: unspecified type Qualified Code(s): F03.90 - Unspecified dementia without behavioral disturbance (6) HLD (hyperlipidemia) Hyperlipidemia type: unspecified Qualified Code(s): E78.5 - Hyperlipidemia, unspecified (7) Altered mental state Altered mental status type: delirium Qualified Code(s): R41.0 - Disorientation, unspecified (8) HTN (hypertension) Hypertension type: essential hypertension Qualified Code(s): I10 - Essential (primary) hypertension (9) Obesity Body mass index: BMI 50.0-59.9 Obesity classification: adult class 3 (BMI >= 40) Obesity type: due to excess calories Serious obesity comorbidity presence: with serious comorbidity Qualified Code(s): E66.01 - Morbid (severe) obesity due to excess calories; Z68.43 - Body mass index [BMI] 50.0-59.9, adult
[2021-03-05] MEDS ORDERED: CLOTRIMAZOLE VAGINAL CR 7 APPLN/45 GM TUBE PV SCH (21:00)
[2021-03-06] MEDS: SILVER SULFADIAZINE 1% CR 50 GM JAR EXT SCH (08:43)
[2021-03-06] MEDS: APIXABAN 5 MG TABLET PO SCH (08:44)
[2021-03-06] MEDS: POT PHOSPHATE MONOBASIC W/ SOD TAB PO SCH (08:44)
[2021-03-06] MEDS: FUROSEMIDE 40 MG TAB PO SCH (08:45)
[2021-03-06] MEDS: ESCITALOPRAM OXALATE 10 MG TAB PO SCH (08:45)
[2021-03-06] MEDS: POTASSIUM CHLORIDE CRTAB 20 MEQ TABCR PO SCH (08:46)
[2021-03-06] MEDS: PANTOprazole 40 MG TAB PO SCH (08:46)
[2021-03-06] MEDS: METOPROLOL TARTRATE 25 MG TAB PO SCH (08:46)
[2021-03-06] MEDS: PRAVASTATIN SOD 10 MG TAB PO SCH (08:46)
--- NOTE | 2021-03-06 08:49 | Discharge Summary ---
Date of Service March 06, 2021 Admission HPI Per Admitting Provider 76 YOF with past medical history of: Afib (on eliquis), hypotension, hypokalemia, obesity, HTN, HFpef, HLD, MOHAMUD (on CPAP) arthritis, falls, depression, dementia, Gastric bypass 2001. Patient is poor historian but tiffanie jung is at bedside to help fill in some of the information. Patient was told that she has been anemic since ~December and was scheduled to have an appointment with GI, however this appointment was never scheduled because she was admitted to [facility] at the end of November for CHF exacerbation. Her daughter reports that while she was at [facility], her HGB ~8 and she was given 2 units of blood and also believes that she was started on the iron-vitamin C there. The patient was discharged from [facility] on [id number] and sent back to [facility] rehab. She was referred back to the EMD today for reports of large dark bloody BM there, the patient can not recall her BM as she is usually on a bedpan or incontinence pads, but she denies any increase in her BM or them changing consistency, she has also not had any vomiting. She was evaluated in the EMD and had a guaiac (+) stool per the EMD physician. Patient reports some increase in her nausea at times, but does not endorse stomach pain or increase in heart burn. She denies any Motrin, Aleve, Ibuprofen, or other NSAID use, and used Tylenol for her pain and took her Tramadol one day as it was just started for her Arthritis. Patient will be admitted to medical telemetry, will hold her Eliqius, start on IV PPI BID, follow her blood counts and consult GI. Principal Diagnosis GI bleed, anemia, acute metabolic encephalopathy Discharge Exam Constitutional WD/WN, vitals as above Eyes + anicteric sclerae Neck trachea midline, no thyromegaly Respiratory normal respiratory effort, lungs clear to auscultation Cardiovascular Rate/Rhythm: regular rate and + irregularly irregular Heart Sounds: no murmur Extremities: no edema Chest (Breasts) Chest: normal inspection of chest Gastrointestinal (Abdomen) normal bowel sounds, soft, nontender, no hepatosplenomegaly (Obese) Musculoskeletal Extremities: no cyanosis and no clubbing Skin + wound (Right knee now closed and left dorsal 2nd/3rd toes dry skin) Neurologic moves all extremities and awake; no focal motor deficits Psychiatric Orientation: alert, oriented to person, oriented to place and cooperative Eye Contact: good eye contact Speech: normal rate/rhythm/volume of speech Affect: euthymic affect Cognition: recent memory grossly intact (Much improved from previous but occasionally forgetful) Discharge Data Allergies Allergy/AdvReac Type Severity Reaction Status Date / Time cantaloupe Allergy Mild Itching Verified 02/24/21 17:01 melon Allergy Mild itching Verified 02/24/21 17:01 Anesthetics - Amide Type - AdvReac Severe Stops Unverified 02/23/21 12:11 Select A Breathings Anesthetics - Constanza Type- AdvReac Severe Stops Unverified 02/23/21 12:11 Parabens Breathing meperidine [From Demerol] AdvReac Mild Vomiting Unverified 02/23/21 12:11 Consultations 02/23/21 13:30 ED Decision to Admit Stat 02/23/21 22:00 Consult Gastroenterology Routine 02/27/21 10:46 Consult Health Information Management Routine 03/04/21 13:46 Consult Infectious Diseases Routine Procedures Performed Operation Date: 02/25/21 17:00 Actual Procedures p Esophagogastroduodenoscopy - Mac Reyes MD s Colonoscopy Polypectomy - Mac Reyes MD s Colonoscopy Hemostasis - Mac Reyes MD Ordered Studies 02/25/21 15:34 CT head/brain wo con Urgent 03/03/21 07:17 MR brain wo con Routine Head CT 02/25/21 15:34 CT OF THE HEAD WITHOUT CONTRAST CLINICAL HISTORY: generalized confusion, Eliquis COMPARISON STUDY: No previous studies for comparison. CT DOSE: 1437.38 mGy.cm TECHNIQUE: Helical axial images of the head were obtained without IV contrast. Automated exposure control was utilized for the study. A dose lowering technique was utilized adhering to the principles of ALARA. FINDINGS: This exam is mildly compromised by artifact. No acute intracranial hem orrhage, midline shift or mass effect is present. Ventricular system is unremarkable. Basal cisterns are patent. White matter hypodensity suggests small vessel disease. There are no findings to suggest acute dural sinus thrombosis or acute territorial infarct. Atrophy is noted. Right mastoid air cells are partially opacified. Small amount of fluid within the left mastoid air cells is noted. IMPRESSION: 1. No acute intracranial findings. Exam mildly compromised by artifact. 2. Partially opacified bilateral mastoid air cells. ACT 112: Negative or not required by law. Electronically signed by: Rodger Naqvi M.D. 02/25/2021 6:21 PM Chest X-Ray 02/28/21 09:52 XR chest 1V portable CLINICAL HISTORY: hypoxia COMPARISON STUDY: No previous studies for comparison. FINDINGS: Patient is rotated. There is no pneumothorax or pleural effusion. Apparent left basilar opacity is probably artifactual. Note is made of cardiomegaly without evidence for pulmonary edema. Right hilar prominence is noted. This is likely due to pulmonary vessels. IMPRESSION: 1. Apparent left basilar opacity which is likely artifactual. Follow-up PA and lateral chest radiographs could be obtained. 2. Cardiomegaly without evidence for pulmonary edema. ACT 112: Negative or not required by law. Electronically signed by: Rodger Naqvi M.D. 02/28/2021 10:55 AM Chest X-Ray 02/28/21 12:15 XR chest 2V PA/lateral HISTORY: hypoxia, left basal opacity COMPARISON: Chest 02/28/2021. FINDINGS: No pneumothorax. Mild interstitial thickening. This suggests mild congestive change. The heart is enlarged. No pleural effusions. Patchy bibasilar densities, left greater than right. The small right lung base density is new fr om the prior study. IMPRESSION: 1. Cardiomegaly with mild congestive change. 2. There are patchy bibasilar densities, left greater than right. This could represent atelectasis or pneumonia. ACT 112: Negative or not required by law. Electronically signed by: Sae Pennington M.D. 02/28/2021 1:33 PM Chest X-Ray 03/02/21 10:57 XR chest 1V portable CLINICAL HISTORY: increased confusion COMPARISON STUDY: 02/28/2021 FINDINGS: The heart is enlarged. There is radiographic evidence of mild congestive failure/fluid overload. There is no lobar consolidation. Increased basilar markings while nonspecific statistically atelectatic[. There are no large pleural effusions IMPRESSION: Cardiomegaly and radiographic evidence of mild congestive failure/fluid overload. ACT 112: Negative or not required by law. Electronically signed by: Kirt Willett M.D. 03/02/2021 11:22 AM Brain MRI 03/03/21 07:17 MRI OF THE BRAIN WITHOUT CONTRAST CLINICAL HISTORY: Slurred speech. COMPARISON STUDY: Head CT February 25, 2021. TECHNIQUE: Utilizing a 1.5 Lula magnet and dedicated coil, multiplanar, multiecho imaging of the brain was performed without IV contrast. FINDINGS: This exam is compromised by motion artifact. There are no foci of restricted diffusion to suggest acute infarct. No acute intracranial hemorrhage, midline shift or mass effect is present. Ventricular system is unremarkable. Basal cisterns are patent. There are no extra axial collections. A 5 mm round density along the anterior falx likely reflects a small meningioma. White matter T2 hyperintense foci suggest mild small vessel disease. Bilateral mastoid air cells are partially opacified. Calvarial signal is maintained. There is no evidence for sinusitis. IMPRESSION: 1. No acute intracranial findings. Exam mildly compromised by motion artifact. 2. Partially opacified bilateral mastoid air cells. 3. Suspected small 5 mm meningioma along the anterior falx. ACT 112: Negative or not required by law. Electronically signed by: Rodger Naqvi M.D. 03/03/2021 11:29 AM [facility] Course (1) Gastrointestinal hemorrhage, unspecified: This patient is a 76 yo obese female with Afib on Eliquis, HTN, hypokalemia, depression, MCI,gastric bypass, here with GI bleed and mild anemia Hemodynamically stable, Hgb stable for many days, Hemoccult positive Apparently she was transfused 2 units of blood 2 weeks ago and [facility] during her stay for CHF and new onset atrial fibrillation -EGD/colonoscopy 02/25, no acute bleeding seen, gastritis, one colonic polyp removed which is a benign inflammatory type polyp on pathology -Continue Protonix 40 mg PO BID -Restarted Eliquis per GI recommendations -Hemoglobin remained stable for many days -Should check CBC in 1 week after discharge (2) Altered mental state: With acute metabolic encephalopathy, significant change in mental status over last 2 weeks as per family, suspect secondary to digoxin toxicity. Has had some delirium in the hospital but overall improved since admission She has been having difficulty with word finding and short-term memory loss for at least the last year as per her daughter and [id number] that lives with her CXR, CT head, MRI head unremarkable Ammonia WNL, TSH normal Hemoglobin remained stable no further GI bleeding Renal function is intact Repeat digoxin level is back to a therapeutic range and she is no longer on digoxin UA is abnormal and urine culture now growing Seema glabrata, however this is likely a contamination-appreciate ID consultation-no need to treat -Recommended neuropsychological assessment as an outpatient after acute medical issues in the hospital are resolved to evaluate for dementia (3) Hypoxia: Chest x-ray with atelectasis. Suspect secondary to obesity hypoventilation and noncompliance with CPAP at night. May use own CPAP at night as intolerant to BiPAP Incentive spirometry throughout the day Is off oxygen during the day (4) Metabolic alkalosis: Suspect due to overdiuresis-now improved Given increasing BUN and creatinine on a.m. labs, lasix initially discontinued but now reduced to 40mg PO daily. (5) Afib: Rate controlled. This was new in onset during recent hospitalization at [facility] She follows with Dr. Knight of cardiology at [facility] Well controlled rate with metoprolol 25mg PO in the morning and 12.5 mg at bedtime -Continue Eliquis, will monitor for further blood loss-none so far (6) Anemia: As above, patient was transfused 2 units of PRBCs during previous admission at outside hospital for hemoglobin of 8-9 Hemoglobin here as above is at 10.5 with melena upon admission and is now improved up to 11 She was started on oral iron supplementation upon discharge to rehab MCV is borderline macrocytic She does have a history of gastric bypass surgery Iron studies normal here, B12 and folate are also normal TSH normal Likely secondary to GI bleeding Follow CBC in 1 week Continue iron supplementation upon discharge (7) CHF (congestive heart failure): HFpEF- Patient reports that her EF 50% Mild volume overload with edema in the ankles and feet on admission which is now resolved I do not have record of her weight upon discharge from recent hospitalization, however her daughter reports she was 136 kg before she went into the [facility] 2 weeks ago -Lasix reduced to 40 mg once daily from home dose of twice daily -Daily weights stable, I's and O's - inaccurate TTE- unremarkable, with preserved EF (8) HTN (hypertension): Blood pressure here is normal, unclear if this is a definite diagnosis She is only on Lasix for heart failure and actually her daughter reports that she had low blood pressures when she was on metoprolol with her atrial fibrillation BPs here on low dose metoprolol are good (9) HLD (hyperlipidemia): Continue pravastatin 10 mg PO Qam (10) Hypokalemia: Chronic- she is on Kdur as well as Kphos packets multiple times a day - She feels this is also why she was just put on Fludrocortisone 01.mg - AM cortisol normal -Fludrocortisone here has been held for now and seems to be doing well-would not recommend restarting Follow BMP in 1 week at nursing facility (11) Obesity: Chronic obesity, BMI now down to 52.0 - No acute needs, needs weight loss Has a history of gastric bypass surgery but gained a lot of the weight back (12) Gastric bypass status for obesity: As above - Follow labs- supplements and complexes may need added/adjusted (13) MOHAMUD (obstructive sleep apnea): She wears CPAP 4cmH2O - we have no records available - CPAP at night or while sleeping (14) Dementia: Not officially diagnosed, but [id number] at the bedside reports that patient has had ongoing "senior moments" for the last year and difficulty with word finding and memory Follow-up as an outpatient as above (15) Dizziness: This has been going on for 3 months per the daughter, where they adjusted her medications Perhaps this was secondary to her newly diagnosed atrial fibrillation She still complains of some mild dizziness here but is improved she reports (16) Depression: Continue Lexapro (17) Abnormal ECG: ECG with ST and T wave abnormality in the anterolateral leads consistent on repeat ECG Troponins serially negative Possible digoxin effect (18) UTI (urinary tract infection): Abnormal UA-this was collected when she became more encephalopathic on 03/02 Urine culture now growing Seema glabrata This is most likely contamination Consult infectious disease for further evaluation to determine if would need treatment-appreciate consultation, no treatment needed treated with clotrimazole vag suppositories x 7 days for vaginal candidiasis UTI RULED OUT (19) DVT prophylaxis: Eliquis as above Disposition-medically stable for discharge, going to SNF at [facility] Total Time Total Time Spent Total Time Spent (In Minutes): 35 min Total Time Includes: Examination of the Patient, Discharge Planning and Medication Reconciliation Discharge Plan Discharge Items Patient Disposition: Transfer [facility] Fac Reason For Visit: ANEMIA,R/O UGI BLEED Discharge Diagnosis: Anemia, GI bleed, ambulatory dysfunction Condition on Discharge: Good Activity: As commented below Bathing: No limitations Exercise/Sports: Gradually increase as tolerated Weightbearing: Full weightbearing Non-emergency contact: Primary Care Provider and Government Relations Analyst Call non-emergency contact if: you have any medication questions and your symptoms worsen Follow-up/Referrals: [facility] [Primary Care Provider] - Diet: Heart Healthy and Low Sodium (2gm) Addtl Attending Provider Instructions: You were admitted for a GI bleed and had endoscopies performed which did not show a source of bleeding, but did show gastritis in the stomach. The bleeding stopped and you were resumed on your Eliquis and had no further problems. Your digoxin was stopped as your levels were too high which was causing you some confusion. You were started on low-dose of metoprolol to help control your atrial fibrillation. Please check a basic metabolic panel and CBC in 3 to 5 days at the group home facility. Your potassium levels are chronically mildly low and require replacement. Please continue on your CPAP at nighttime. Pending Studies at Discharge: No Stand-Alone Forms: [facility] Skilled Items Patient informed of condition?: Yes DNR: No Discharge Level of Care: Skilled Communicable Disease: No Discharge Prognosis: Improving Lines: None Urinary Catheter: No Medications and DC Order Prescriptions: New acetaminophen 325 mg Tablet 650 mg PO Q4H PRN (Reason: pain) Qty: 30 RF: 0 Phospha 250 Neutral 250 mg Tablet 1 tab PO TIDM Qty: 90 RF: 0 metoprolol tartrate 25 mg Tablet 12.5 mg PO QPM Qty: 15 RF: 0 metoprolol tartrate 25 mg Tablet 25 mg PO QAM Qty: 30 RF: 0 Desenex 2 % Powder 1 applic EXT PRN PRN (Reason: Seema in skin folds) Qty: 43 RF: 0 Continued silver sulfadiazine 1 % Cream 1 applic TOPICAL BID Qty: 20 RF: 0 pravastatin 10 mg Tablet 10 mg PO QAM Qty: 30 RF: 0 escitalopram oxalate 10 mg Tablet 10 mg PO QAM Qty: 30 RF: 0 apixaban 5 mg Tablet 5 mg PO BID Qty: 60 RF: 0 Vitron-C 65 mg iron- 125 mg Tablet,Delayed Release (Dr/Ec) 1 tab PO TIDM Qty: 30 RF: 0 magnesium oxide 400 mg magnesium Tablet 400 mg PO BIDM Qty: 60 RF: 0 Changed furosemide 40 mg Tablet 40 mg PO QAM Qty: 30 RF: 0 pantoprazole 40 mg Tablet,Delayed Release (Dr/Ec) 40 mg PO BID Qty: 60 RF: 0 potassium chloride 20 mEq Tablet Extended Release 20 meq PO BIDM Qty: 60 RF: 0 Discontinued melatonin 3 mg Tablet 3 mg PO HS PRN (Reason: Sleep) RF: 0 tramadol 50 mg Tablet 50 mg PO Q4H PRN (Reason: Pain) RF: 0 docusate sodium 100 mg Capsule 100 mg PO TID RF: 0 digoxin 125 mcg (0.125 mg) Tablet 250 mcg PO PM RF: 0 potassium phosphate m-/d-basic 556-250 mg Packet 1 packet PO TIDM RF: 0 fludrocortisone 0.1 mg Tablet 0.1 mg PO QAM RF: 0 Discharge Orders: Discharge Order (Routine); Ordered 03/06/21 Ordered By: Doris Coats Admission Data Admit Date/Time: 02/23/21 14:51 Attending Provider: Doris Coats Admit Provider: Doris Coats Primary Care Provider: [facility] Other Providers: Doris Coats ; Mac Reyes ; Wolfgang Gary ; Korina Bertrand ; Wilmer Chávez I. ; Roberto Pavon II ; Shanice Tyler ; Trever Jewell Other Interventions: Discharge Summary Assessment (RN) Last Done: 03/06/21 10:15 Coding Level of Care Code D/C Day Management >30 mins Diagnoses Gastrointestinal hemorrhage, unspecified K29.51 GI bleed type/associated pathology: gastritis Gastritis type: chronic gastritis Altered mental state R41.0 Altered mental status type: delirium Hypoxia R09.02 Metabolic alkalosis E87.3 Afib I48.20 Atrial fibrillation type: unspecified chronic Anemia D64.9 Anemia type: unspecified type CHF (congestive heart failure) I50.9 Heart failure chronicity: chronic Heart failure type: unspecified HTN (hypertension) I10 Hypertension type: essential hypertension HLD (hyperlipidemia) E78.5 Hyperlipidemia type: unspecified Hypokalemia E87.6 Obesity E66.01; Z68.43 Body mass index: BMI 50.0-59.9 Obesity classification: adult class 3 (BMI >= 40) Obesity type: due to excess calories Serious obesity comorbidity presence: with serious comorbidity Gastric bypass status for obesity Z98.84 MOHAMUD (obstructive sleep apnea) G47.33 Dementia F03.90 Dementia behavioral disturbance: without behavioral disturbance Dementia type: unspecified type Dizziness R42 Depression F32.9 Abnormal ECG R94.31 UTI (urinary tract infection) N39.0 DVT prophylaxis Z29.9
[2021-03-06] MEDS: MAGNESIUM OXIDE 400 MG TAB PO SCH (09:13)
== END 2021-03-06 10:15 | DRG 377 ==
LOC: ED 10:16 → 2W 14:51 → SUATTDRO 14:51 → 2W 15:31